=== PATIENT | female | born 1950 | race Caucasian/White ===

== ENCOUNTER 2017-01-29 14:37 | Inpatient (IN) | payer BC ==
--- NOTE | 2017-01-29 14:52 | CPEKG ---
Heart Rate: 57 RR Interval: 1053 P-R Interval: 180 QRSD Interval: 80 QT Interval: 416 QTC Interval: 405 P [place]: 43 QRS [place]: 43 T Wave [place]: 55 EKG Severity - NORMAL ECG - EKG Impression: SINUS RHYTHM Electronically Signed By: Faraz Chavez 29-Jan-2017 15:20:43
[2017-01-29] MEDS ORDERED: ASPIRIN 81 MG CHEWABLE TAB PO ONE (14:59)
[2017-01-29] MEDS ORDERED: NS 500 ML IV ONE (14:59)
--- NOTE | 2017-01-29 15:03 | EDPHY ---
H & P Stated Complaint: [place]; CP radiating into neck/jaw; nausea x 1 hr Time Seen by Provider: 01/29/17 14:49 HPI/ROS: CHIEF COMPLAINT: Chest pain HISTORY OF PRESENT ILLNESS: the patient is a 66-year-old female with a history of coronary artery disease and unstable angina who comes to the emergency department complaining of shoulder pain that radiates to her jaw and down to her chest on the left side. She states that this is consistent with her history of unstable angina. She reports that her last cardiac catheterization was in 2010 and that she has 2 stents total. She recently moved here from [place] at her medical records are not available. She takes aspirin daily and took 2 doses of nitroglycerin today. She did feel nauseous but did not vomit. She has mild feeling of shortness of breath. No fevers. No cough. No diaphoresis. No headache. She recently recovered from renal cancer after robotic surgery in October of this year. She also has remote history of breast cancer. She is not on any blood thinners. REVIEW OF SYSTEMS: Constitutional: denies: chills, fever, recent illness, recent injury EENTM: denies: blurred vision, double vision, nose congestion Respiratory: denies: cough, shortness of breath Cardiac: See HPI denies: irregular heart rate, lightheadedness, palpitations Gastrointestinal/Abdominal: denies: abdominal pain, diarrhea, nausea, vomiting, blood streaked stools Genitourinary: denies: dysuria, frequency, hematuria, pain Musculoskeletal: denies: joint pain, muscle pain Skin: denies: lesions, rash, jaundice, bruising Neurological: denies: headache, numbness, paresthesia, tingling, dizziness, weakness Hematologic/Lymphatic: denies: blood clots, easy bleeding, easy bruising Immunologic/allergic: denies: HIV/AIDS, transplant EXAM: GENERAL: Well-appearing, well-nourished and in no acute distress. HEAD: Atraumatic, normocephalic. EYES: Pupils equal round and reactive to light, extraocular movements intact, sclera anicteric, conjunctiva are normal. ENT: TMs normal, nares patent, oropharynx clear without exudates. Moist mucous membranes. NECK: Normal range of motion, supple without lymphadenopathy or JVD. LUNGS: Breath sounds clear to auscultation bilaterally and equal. No wheezes rales or rhonchi. HEART: Regular rate and rhythm without murmurs, rubs or gallops. ABDOMEN: Soft, nontender, normoactive bowel sounds. No guarding, no rebound. No masses appreciated. BACK: No CVA tenderness, no spinal tenderness, step-offs or deformities EXTREMITIES: Normal range of motion, no pitting or edema. No clubbing or cyanosis. NEUROLOGICAL: Cranial nerves II through XII grossly intact. Normal speech, normal gait. 5/5 strength, normal movement in all extremities, normal sensation PSYCH: Normal mood, normal affect. SKIN: Warm, dry, normal turgor, no visible rashes or lesions. Source: Patient Exam Limitations: No limitations - Personal History Current Tetanus Diphtheria and Acellular Pertussis (TDAP): Yes - Medical/Surgical History Hx Chronic Respiratory Disease: No Hx Diabetes: No Hx Cardiac Disease: Yes Hx Renal Disease: No Hx Cirrhosis: No Hx Alcoholism: No Other PMH: kidney cancer. heart stents. breast cancer, thyroidectomy - Family History Significant Family History: No pertinent family hx - Social History Smoking Status: Never smoked Alcohol Use: Sober Drug Use: None Constitutional: Initial Vital Signs Heart Rate 56 L 01/29/17 14:39 Respiratory Rate 18 01/29/17 14:39 Blood Pressure 151/105 H 01/29/17 14:39 O2 Sat (%) 94 01/29/17 14:39 O2 Delivery Mode Room Air Allergies/Adverse Reactions: No Known Allergies Allergy (Unverified 01/29/17 14:48) Home Medications: Medication Instructions Recorded Atorvastatin Calcium [Lipitor 20 20 mg PO DAILY 01/29/17 mg (*)] Docusate Sodium [Colace 100 MG (*)] 100 mg PO BID PRN 01/29/17 Losartan Potassium 100 mg PO DAILY 01/29/17 Nebivolol HCl [Bystolic 5 mg (*)] 5 mg PO DAILY 01/29/17 Thyroid,Pork [[place] Thyroid] 90 mg PO DAILY 01/29/17 Tizanidine HCl 4 mg PO QID 01/29/17 Zolpidem Tartrate [Ambien 10 mg] 10 mg PO HS PRN 01/29/17 clonazePAM [klonoPIN (*)] 1 mg PO TID PRN 01/29/17 oxyCODONE HCL/ACETAMINOPHEN 1 each PO Q6H PRN 01/29/17 [Percocet 10-325 mg Tablet] Medical Decision Making - Diagnostics EKG Interpretation: An EKG obtained and was read and documented in trace view. Please see trace view for full reading and report. Sinus rhythm, no acute ischemic changes Imaging Results: Imaging Impressions Chest X-Ray 01/29/17 15:00 Impression: Hyperexpanded lungs with peribronchial thickening, suggesting COPD. Imaging: Discussed imaging studies w/ cardiographer Radiologist ED Course/Re-evaluation: We discussed the test results thus far which are reassuring. The patient continues to be symptomatic. I will admit for continued workup and testing evaluation. Patient understands and agrees with this plan. 3:50 p.m. I spoke with Dr MAKENNA Andres who will admit. The 4:10 p.m. I discussed the case with Dr. Pepito Cason who will consult. Differential Diagnosis: Partial list of the Differential diagnosis considered include but were not limited to; acute coronary disease, anxiety and although unlikely based on the history and physical exam, I also considered PE, dissection, pneumothorax. - Data Points Laboratory Results: Laboratory Results 01/29/17 15:09 01/29/17 15:09 01/29/17 01/29/17 01/29/17 15:09 15:09 15:09 WBC 7.31 10^3/uL 10^3/uL (3.80-9.50) RBC 4.06 10^6/uL L 10^6/uL (4.18-5.33) Hgb 12.6 g/dL g/dL (12.6-16.3) Hct 38.0 % % (38.0-47.0) MCV 93.6 fL fL (81.5-99.8) MCH 31.0 pg pg (27.9-34.1) MCHC 33.2 g/dL g/dL (32.4-36.7) RDW 14.2 % % (11.5-15.2) Plt Count 264 10^3/uL 10^3/uL (150-400) MPV 9.8 fL fL (8.7-11.7) Neut % (Auto) 54.6 % % (39.3-74.2) Lymph % (Auto) 33.0 % % (15.0-45.0) [place] % (Auto) 9.6 % % (4.5-13.0) Eos % (Auto) 1.9 % % (0.6-7.6) Baso % (Auto) 0.5 % % (0.3-1.7) Nucleat RBC Rel Count 0.0 % % (0.0-0.2) Absolute Neuts (auto) 3.99 10^3/uL 10^3/uL (1.70-6.50) Absolute Lymphs (auto) 2.41 10^3/uL 10^3/uL (1.00-3.00) Absolute Monos (auto) 0.70 10^3/uL 10^3/uL (0.30-0.80) Absolute Eos (auto) 0.14 10^3/uL 10^3/uL (0.03-0.40) Absolute Basos (auto) 0.04 10^3/uL 10^3/uL (0.02-0.10) Absolute Nucleated RBC 0.00 10^3/uL 10^3/uL (0-0.01) Immature Gran % 0.4 % % (0.0-1.1) Immature Gran # 0.03 10^3/uL 10^3/uL (0.00-0.10) PT 12.3 SEC SEC (12.0-15.0) INR 0.92 (0.83-1.16) APTT 22.7 SEC L SEC (23.0-38.0) Sodium 138 mEq/L mEq/L (134-144) Potassium 4.4 mEq/L mEq/L (3.5-5.2) Chloride 103 mEq/L mEq/L (97-110) Carbon Dioxide 24 mEq/l mEq/l (22-31) Anion Gap 11 mEq/L mEq/L (8-16) BUN 21 mg/dL mg/dL (7-23) Creatinine 1.0 mg/dL mg/dL (0.6-1.0) Estimated GFR 56 Glucose 95 mg/dL mg/dL (70-100) Calcium 9.5 mg/dL mg/dL (8.5-10.4) Total Bilirubin 0.7 mg/dL mg/dL (0.1-1.4) Conjugated Bilirubin 0.4 mg/dL mg/dL (0.0-0.5) Unconjugated Bilirubin 0.3 mg/dL mg/dL (0.0-1.1) AST 39 IU/L IU/L (14-46) ALT 37 IU/L IU/L (9-52) Alkaline Phosphatase 69 IU/L IU/L (38-126) Troponin I < 0.012 ng/mL ng/mL (0-0.034) Total Protein 7.6 g/dL g/dL (6.3-8.2) Albumin 4.5 g/dL g/dL (3.5-5.0) Lipase 97.0 IU/L IU/L (23-300) Medications Given: Discontinued Medications Aspirin (Aspirin) 324 mg PO EDNOW ONE Stop: 01/29/17 15:00 Last Admin: 01/29/17 15:24 Dose: 243 mg Enoxaparin Sodium (Lovenox) 70 mg SC ONCE ONE Stop: 01/29/17 17:46 Last Admin: 01/29/17 17:37 Dose: 70 mg Hydromorphone HCl (Dilaudid) 1 mg IVP EDNOW ONE Stop: 01/29/17 15:46 Last Admin: 01/29/17 15:50 Dose: 1 mg Sodium Chloride (Ns) 500 mls @ 1,000 mls/hr IV ONCE ONE PRN Reason: Protocol Stop: 01/29/17 15:28 Last Admin: 01/29/17 15:23 Dose: 500 mls Sodium Chloride (Ns) 1,000 mls @ 3,000 mls/hr IV ONCE ONE Stop: 01/29/17 16:16 Last Admin: 01/29/17 16:46 Dose: Not Given Morphine Sulfate (Morphine) 4 mg IVP EDNOW ONE Stop: 01/29/17 15:00 Last Admin: 01/29/17 15:24 Dose: 4 mg Nitroglycerin (Nitro-Bid 2%) 1 inch TP ONCE ONE Stop: 01/29/17 16:27 Last Admin: 01/29/17 17:36 Dose: 1 inch Departure - Departure Disposition: [facility] Inpatient Acute Clinical Impression: Chest pain Qualifiers: Chest pain type: unspecified Qualified Code(s): R07.9 - Chest pain, unspecified Condition: Fair
[2017-01-29 15:11] LABS: % IMMATURE GRANULYOCYTES 0.4 % (0.0-1.1); ABSOLUTE IMMATURE GRANULOCYTES 0.03 10^3/uL (0.00-0.10); ADD DIFF? NO; ATYPICAL LYMPHOCYTE FLAG 30 (0-99); HEMOGLOBIN 12.6 g/dL (12.6-16.3); LEFT SHIFT FLG 10 (0-99); MEAN CELL HEMOGLOBIN CONCENTR. 33.2 g/dL (32.4-36.7); MEAN CELL VOLUME 93.6 fL (81.5-99.8); MEAN PLATELET VOLUME 9.8 fL (8.7-11.7); PLATELET COUNT 264 10^3/uL (150-400); RED BLOOD CELL COUNT 4.06 10^6/uL (4.18-5.33); RED CELL DISTRIBUTION WIDTH 14.2 % (11.5-15.2)
[2017-01-29 15:12] LABS: ADD MORPH? NO; ADD SCAN? NO; FRAGMENT RBC FLAG 0 (0-99); LIPEMIA HEMOLYSIS FLAG 80 (0-99); PLATELET CLUMPS FLAG 0 (0-99)
[2017-01-29 15:23] LABS: APTT 22.7 SEC (23.0-38.0); INR 0.92 (0.83-1.16); PROTIME(PATIENT) 12.3 SEC (12.0-15.0)
[2017-01-29 15:28] LABS: ALANINE AMINOTRANSFERASE 37 IU/L (9-52); ALBUMIN 4.5 g/dL (3.5-5.0); ALKALINE PHOSPHATASE 69 IU/L (38-126); ANION GAP 11 mEq/L (8-16); ASPARTATE AMINOTRANSFERASE 39 IU/L (14-46); BILIRUBIN,TOTAL 0.7 mg/dL (0.1-1.4); BILIRUBIN-CONJUGATED 0.4 mg/dL (0.0-0.5); BILIRUBIN-UNCONJUGATED 0.3 mg/dL (0.0-1.1); CALCIUM 9.5 mg/dL (8.5-10.4); CARBON DIOXIDE 24 mEq/l (22-31); CHLORIDE 103 mEq/L (97-110); GLOMERULAR FILTRATION RATE 56; GLUCOSE 95 mg/dL (70-100); POTASSIUM 4.4 mEq/L (3.5-5.2); SODIUM 138 mEq/L (134-144); TOTAL PROTEIN 7.6 g/dL (6.3-8.2)
[2017-01-29 15:39] LABS: TROPONIN I < 0.012 ng/mL (0-0.034)
[2017-01-29] MEDS ORDERED: HYDROmorphONE/DILAUDID 1 MG/ML SYR IVP ONE (15:45)
[2017-01-29] MEDS ORDERED: HYDROmorphONE/DILAUDID 1 MG/ML SYR ONE (15:46)
[2017-01-29] MEDS ORDERED: ONDANSETRON DISINTEGRATING 4 MG TAB PO PRN (15:57)
[2017-01-29] MEDS ORDERED: ONDANSETRON 4 MG/2 ML VIAL IVP PRN (15:57)
[2017-01-29] MEDS ORDERED: NS 1,000 ML IV ONE (15:57)
[2017-01-29] MEDS: NITROGLYCERIN 2% 1 GM PACKET TP ONE ×2 (16:46→17:36)
--- NOTE | 2017-01-29 16:58 | GHP ---
[f rep st] HISTORY AND PHYSICAL DATE OF ADMISSION: 01/29/2017 CHIEF COMPLAINT: Chest pain. HISTORY OF PRESENT ILLNESS: This is a 66-year-old female with a history of coronary artery disease status post 2 stents, most recent of which was placed in 2010, who arrived here from [place] approxima tel a week ago and developed substernal jaw and left-sided shoulder and arm pain this morning while sitting with her grandchildren. Patient reports that the day previous, she was feeling very fatigu ed and lethargic. Denied any specific chest pain but did have some exertional shortness of breath s paola she has arrived from [place]. Patient notes sitting with her grandchildren this morning with the beginning of this pain in her jaw radiating down to her left chest and then across to her left shou lder and down her arm. It is quite similar to the pain she had with her previous AK and therefore p resented to the emergency department for evaluation. She reports that it was an intensity of 7 on a 1-10 scale when it began, after treatment in the ED it is down to a 4 but is persistent still. She experienced some nausea, some lightheadedness with this. She did not vomit. Again, has been exper iencing dyspnea on exertion since her arrival from [place]. The patient denies any headaches, denies any vision changes. She does have hearing loss which has been stable. Denies any dysphagia. Has b een running a little bit constipated. Denies any dysuria, hematuria, or lower extremity edema. PAST MEDICAL HISTORY: 1. Coronary artery disease status post stenting x2, last of which in 2010. 2. Hypothyroidism. 3. Breast cancer status post a modified radical mastectomy. 4. Recent diagnosis of a kidney cancer status post surgical resection in October of 2016 without adju vant chemotherapy. 5. Severe degenerative joint disease of the back, waiting for a nerve stimulator from Neurosurgery. 6. Hypertension. 7. Hyperlipidemia. 8. Failed silicone implant requiring a TRAM flap. 9. Chronic pain. SOCIAL HISTORY: Negative for tobacco, alcohol maybe once to twice a month, no illicit drugs. She d id try a marijuana gummy recently but did not like the way it felt. FAMILY HISTORY: Positive for heart disease in her mother. REVIEW OF SYSTEMS: A 10-point review of systems is negative with the exception of that reported in the HPI. PHYSICAL EXAMINATION: VITAL SIGNS: Blood pressure 156/107, heart rate 60, respiratory rate 16, 94% on room air, 36.8. GENERAL: This is a middle-aged female in no acute distress. ENT: Notable for moist mucous membranes. EYES: Negative for any icterus. CARDIAC: Patient is bradycardic, regula r. No murmurs are appreciated. PULMONARY: Good respiratory effort. Clear to auscultation bilater ally. GASTROINTESTINAL: Positive bowel sounds. Abdomen is soft and nontender in all 4 quadrants. MUSCULOSKELETAL: Negative for any lower extremity edema. SKIN: Negative for any rashes. NEUROLO GIC: She is alert and oriented x3. PSYCHIATRIC: She is pleasant and cooperative on interview and examination. LABORATORY DATA: White count 7.3, creatinine 1.0. Liver function tests normal. Troponin less than 0.012. Chest x-ray, which I personally reviewed and interpreted, shows no acute infiltrates or edema. EKG, which I personally reviewed and interpreted, shows sinus rhythm, bradycardia, heart rates in th e 50s, normal axis, normal intervals, and isolated T-wave inversion in V1 with a biphasic P in V1, o therwise no acute ST-T changes. ASSESSMENT AND PLAN: This is a 66-year-old female with known coronary artery disease, presenting wi th chest pain. 1. Unstable angina. Patient is presenting with chest pain at rest not completely treated in the em ergency department. Need to make Cardiology aware of this patient and discuss the potential of both anticoagulation and/or a nitroglycerin drip. Will cycle her troponins. Expect that she will likel y need cardiac catheterization in the morning. Will make her n.p.o. after midnight. 2. Hypertension. Again, if we initiate a nitrate of some sort, I expect her blood pressures will c ome down. Will continue her home medications in addition. 3. Hyperlipidemia. Will continue her home medications. 4. Degenerative joint disease. I suspect the patient is on chronic narcotics after med reconciliat ion. We can certainly continue her home medications. 5. Kidney cancer. Patient believes it is renal cell carcinoma and that she was entirely treated yen rgically. Will need to obtain records from outside hospital. 6. Diet. Cardiac for now, n.p.o. after midnight. 7. Prophylaxis. Will wait as she may need a heparin drip. DISPOSITION: Potentially less than 2 midnights if the patient rules out overnight and has negative cardiac evaluation in the morning. I have discussed the case with the emergency room physician. We will consult Cardiology from the ED as the patient is presenting with unstable angina. /[id number]/MODL
[2017-01-29] MEDS ORDERED: ENOXAPARIN 60 MG/0.6 ML SYR SC ONE (17:25)
[2017-01-29] MEDS ORDERED: hydrALAZINE 20 MG/ML VIAL IVP PRN (17:26)
[2017-01-29] MEDS ORDERED: HYDROmorphONE/DILAUDID 1 MG/ML SYR IVP PRN (17:31)
[2017-01-29] MEDS ORDERED: ENOXAPARIN 80 MG/0.8 ML SYR SC ONE (17:45)
[2017-01-29] MEDS ORDERED: NON-FORMULARY NEW DRUG (Zolpidem Tartrate [Ambien 10 Mg] 10 MG) PO PRN (18:31)
[2017-01-29] MEDS: HYDROmorphONE/DILAUDID 1 MG/ML SYR IVP PRN (18:44)
--- NOTE | 2017-01-29 19:08 | GCON ---
[f rep st] CONSULTATION CARDIOLOGY CONSULTATION DATE OF CONSULTATION: 01/29/2017 INDICATIONS: Chest discomfort. REQUESTING PHYSICIAN: Dr. Lisbet Andres HISTORY OF PRESENT ILLNESS: The patient is 66 years old. She has known coronary disease. Apparent ly, in 2007 and 2010, she suffered a myocardial infarction. She states that she was treated with PC I and stenting. Both times, she had a single stent placed. She does recall that 1 of the stents wa s in the LAD. Additionally, she has a history of SVT, treated with adenosine in the past. She is o riginally from [place], she moved out here about a week ago, currently staying with her daughter. B eginning about 1 o'clock today, she developed the abrupt onset of left-sided shoulder and chest disc omfort with radiation into her neck and jaw. She had associated diaphoresis and mild shortness of b reath as well as fatigue. Her symptoms were very similar to her index complaints in 2007 and 2010. She took 2 sublingual nitroglycerin at home, and subsequently came to the emergency department. Sh babita states that she has had similar symptoms over the past 5 years. She thinks she has had 4 or 5 hos pitalizations since her stent in 2010. She recalls having had multiple stress myocardial perfusion imaging studies and has typically been told that these were normal. She has not required another ca rdiac catheterization since she was stented back in 2010. Here in the emergency department, her walter ctrocardiogram demonstrates normal sinus rhythm. She had no indication of significant ST or T mack es. Her initial troponin was negative. She was hemodynamically stable and hypertensive with blood pressure 151/105. She was given additional nitroglycerin and morphine with a dramatic improvement i n her pain. Currently, she states she is experiencing only very mild discomfort. PAST MEDICAL HISTORY: 1. Coronary artery disease as described above. 2. History of supraventricular tachycardia. She states about 3 years ago, she had a rapid heart ra te which was terminated with adenosine. This has not returned. 3. Chronic back pain following spinal fusion at levels lumbar 4 and 5. 4. History of deafness with previous cochlear implant on the right. 5. Hypertension. 6. Hyperlipidemia. 7. History of breast cancer in 1983, status post left modified radical mastectomy. 8. History of renal cell carcinoma. In October of this year, she had a left-sided partial nephrectom y. 9. History of nephrolithiasis, leading to sepsis. 10. Peripheral neuropathy. 11. History of hot nodules requiring thyroidectomy. 12. History of breast implants which subsequently ruptured, requiring a TRAM flap surgical repair. 13. History of migraine headaches. 14. Osteoarthritis. SURGICAL HISTORY: 1. She has had previous stenting as described above. 2. History of left-sided modified radical mastectomy. 3. History of left partial nephrectomy. 4. Left total knee arthroplasty. 5. Right femur fracture, status post surgical repair. HOME MEDICATIONS: These are detailed on the chart and not repeated here. FAMILY HISTORY: Noncontributory at this point. ALLERGIES: None. SOCIAL HISTORY: She does not smoke, she uses alcohol very rarely. She really does not exercise muc h as she is debilitated by her back pain. She moved here from [place]. She has a daughter who live s in [place], and one who lives here. She does not use drugs on a regular basis, although alondra starks tried marijuana edible. REVIEW OF SYSTEMS: A full 10-point review of systems was performed and is otherwise negative. DATA BASE: Her ECG demonstrates sinus bradycardia with no ST or T changes. Complete metabolic prof ile is normal. Troponin less than 0.012. INR is 0.92. CBC is unremarkable. PHYSICAL EXAMINATION: VITAL SIGNS: Her blood pressure is 156/107, heart rate 60, respiratory rate is 18. Room air saturations are 94%. GENERAL: She is a healthy white female in no acute distress. HEENT: No jugular venous distention, adenopathy or thyromegaly. RESPIRATORY: She is breathing e asily, using no accessory muscles. On auscultation, she has clear lung springer bilaterally. CARDIOV ASCULAR: Precordial inspection is unremarkable. She has no reproducible chest wall tenderness. On auscultation, she has a regular rate and rhythm without murmurs, gallops, rubs. ABDOMEN: Soft. S he has mild diffuse abdominal tenderness with no masses. EXTREMITIES: Warm and well perfused with no edema. VASCULATURE: She has 2+ radial, dorsal pedal, and posterior tibial pulses. IMPRESSION: The patient is 66 years old. She has known coronary disease as described above. She p resents now with a concerning chest pain syndrome which is consistent with unstable angina pectoris. She has no indication of an acute infectious process at the present time. Additionally, there was no indication of aortic dissection or pulmonary embolism. Certainly, a GI etiology to her chest pa in has not been excluded and may be a real possibility in light of her multiple previous hospitaliza tions with chest and neck discomfort without objective findings of ischemia on previous noninvasive testing. Presently, she is hemodynamically stable, normal EKG with negative cardiac enzymes. RECOMMENDATIONS: 1. She will be admitted to telemetry. 2. Her home medications will be restarted. 3. Nitroglycerin paste has been placed. 4. We will give her a single dose of IV Lovenox. 5. I will plan to trend her cardiac enzymes. 6. She will be made n.p.o. after midnight. 7. Depending on her clinical course, we may consider invasive or noninvasive risk stratification. /[id number]/MODL
[2017-01-29] MEDS: ZOLPIDEM TARTRATE 5 MG TAB PO PRN (22:30)
[2017-01-30] MEDS: HYDROmorphONE/DILAUDID 1 MG/ML SYR IVP PRN ×4 (00:36→23:20)
[2017-01-30] MEDS: ACETAMINOPHEN 325 MG TAB PO PRN ×2 (03:37→15:24)
[2017-01-30 04:45] LABS: ANION GAP 10 mEq/L (8-16); CARBON DIOXIDE 23 mEq/l (22-31); CHLORIDE 107 mEq/L (97-110); CREATININE 0.9 mg/dL (0.6-1.0); GLOMERULAR FILTRATION RATE > 60; GLUCOSE 84 mg/dL (70-100); POTASSIUM 4.2 mEq/L (3.5-5.2); SODIUM 140 mEq/L (134-144)
[2017-01-30 06:19] LABS: TROPONIN I < 0.012 ng/mL (0-0.034)
[2017-01-30] MEDS: THYROID 60 MG TAB PO SCH (08:25)
[2017-01-30] MEDS: NEBIVOLOL HCL 5 MG TAB PO SCH (08:26)
[2017-01-30] MEDS: ATORVASTATIN CALCIUM 20 MG TAB PO SCH (08:27)
[2017-01-30] MEDS: LOSARTAN POTASSIUM 50 MG TAB PO SCH (08:27)
--- NOTE | 2017-01-30 08:55 | CPEKG ---
Heart Rate: 52 RR Interval: 1154 P-R Interval: 188 QRSD Interval: 76 QT Interval: 444 QTC Interval: 413 P [place]: 43 QRS [place]: 29 T Wave [place]: 52 EKG Severity - BORDERLINE ECG - EKG Impression: SINUS RHYTHM EKG Impression: BORDERLINE R WAVE PROGRESSION, ANTERIOR LEADS Electronically Signed By: Richard Scott 01-Feb-2017 08:10:19
[2017-01-30] MEDS ORDERED: NON-FORMULARY NEW DRUG (Thyroid,Pork [Armour Thyroid] 90 MG) PO SCH (09:00)
[2017-01-30] MEDS ORDERED: NON-FORMULARY NEW DRUG (Losartan Potassium [Losartan Potassium] 100 MG) PO SCH (09:00)
[2017-01-30] MEDS ORDERED: REGADENOSON 0.4 MG/5 ML SYR IVP ONE (09:05)
--- NOTE | 2017-01-30 10:35 | PDCARPN ---
Cardiology Progress Note Chief Complaint: cp Assessment/Plan: Assessment: 66-y/o F with PMH CAD with DC/PCI in (per pt report one stent was to LAD), SVT previously requiring adenosine, deafness/cochlear implant, htn, dyslipidemia, RCC, breast CA, presented 01/29 with L-shoulder and chest discomfort that radiated to neck and jaw with associated diaphoresis and shortness similar to previous DC. Since last PCI 2010, she recalls at least 4-5 hospitalizations for similar symptoms. She has moved here from [place] 1 week ago and plan is to permanently reside in [place]. #. cp: neg ECG/enz await MPI results telemetry unremarkable #. htn: on Losartan and Bystolic as outpatient and appears well-controlled #. dyslipidemia: on Atorvastatin #. SVT: no arrhythmias seen on telemetry Plan: Await nuclear imaging study. 01/30/17 10:24 Subjective: Reports an episode of neck pain last night. Given analgesia. Reviewed/Discussed With: hospitalist Objective: Vital Signs (8 Hrs) Temp Pulse Resp BP Pulse Ox 01/30/17 08:27 130/87 H 01/30/17 07: 98.1 F 63 10 L 107/69 94 01/30/17 03:52 97.5 F 59 L 16 130/80 H 96 Intake/Output (24 Hrs) 01/29/17 01/30/17 01/31/17 05:59 05:59 05:59 Intake Total 300 Balance 300 Intake: Oral (ml) 300 Other: Weight 76.657 kg Intake Quantity npo Sufficient Number of Voids Toilet 1 Result Diagrams: 01/29/17 15:09 01/30/17 03:33 Cardiac Labs: Cardiac Lab Results (72 Hrs) 01/30/17 01/29/17 01/29/17 03:33 21:03 18:31 Troponin I < 0.012 < 0.012 0.023 EKG: SR Telemetry: SR - Physical Exam Constitutional: no apparent distress Eyes: PERRL, anicteric sclera Cardiovascular: regular rate and rhythm Respiratory: clear to auscultate bilat Skin: no rashes, no abrasions Neurologic: AAOx3 Psychiatric: cooperative, interactive, anxious ICD10 Worksheet Patient Problems: Problems Problem Status Onset Chest pain Acute
--- NOTE | 2017-01-30 10:42 | PDCARST ---
CAR Stress Test Results Type of Stress Test: Lexiscan Indication: shortness of breath/dizziness Description of Procedure: After informed consent was obtained, pt was established to ECG, blood pressure, HR and oximetry monitoring. STRESS EKG AND HEMODYNAMIC DATA. Resting heart rate: 53 BPM. Resting ECG: SR. Resting blood pressure: 120/80 mmHg. O2 saturation at rest: 97. Peak heart rate: BPM. Peak blood pressure: 140/90 mmHg. Arrhythmias: none. Symptoms: The patient experienced no typical symptoms of angina during stress or recovery. Stress/Infusion ECG: No change in rhythm with no significant ST/T wave changes. Stress/infusion O2 saturation: 97 Impression: Uneventful Lexiscan infusion. Conclusion: Await nuclear images.
[2017-01-30] MEDS: DOCUSATE SODIUM 100 MG CAP PO PRN (11:26)
[2017-01-30] MEDS: clonazePAM 1 MG TAB PO PRN ×2 (11:26→18:39)
--- NOTE | 2017-01-30 12:25 | ECHO ---
[id number] + + [address] : : [place] [address] : : [phone] + + Adult Echocardiographic Report + -----+ :Name: ALENA CLARKE HStudy Date: 01/30/2017 10:55 AM : : Hospital Admission Number: [id number] Location : 218: :: 1950 Gender: Female Height: 62 in : :Age: 66 yrs Race: WH Weight: 165 lb : :Reason For Study: Eval LV Fx : : BSA: 1.8 meters2 : :History: CAD, Chest Pain : + -----+ MMode/2D Measurements \T\ Calculations IVSd: 0.92 cm LVIDd: 4.3 cm FS: 35.8 % Ao root diam: 3.1 cm LVPWd: 0.95 cm LVIDs: 2.7 cm EDV(Teich): 81.2 ml ACS: 1.8 cm ESV(Teich): 27.9 ml EF(Teich): 65.7 % Normal Measurement Values: + + :LVIDd (3.5-5.7cm) IVSd (0.6-1.1cm) LVPWd (0.6-1.1cm) Aortic Root (2.0-3.7cm)Left Atrium (1.5-4.0cm): :LV Vol(d) (76-115ml) LV Vol(s) (29-48ml) Ejec Fraction (50-65%)PV Bhupinder (0.6- 1.2m/s) TV Bhupinder (0.4-1.0m/s) : :MV E Bhupinder (0.8-1.0m/s)MV A Bhupinder (0.3-1.0m/s)LVOT Bhupinder (0.7-1.2m/s) Asc Ao Bhupinder ( 0.9-1.8m/s) : + + Doppler Measurements \T\ Calculations MV E max bhupinder: Ao V2 max: LV V1 max: PA V2 max: 79.0 cm/sec 124.9 cm/sec 68.1 cm/sec 100.4 cm/sec MV A max bhupinder: Ao max P.2 mmHgLV V1 max PG: PA max P.0 mmHg 92.8 cm/sec 1.9 mmHg MV E/A: 0.85 Left Ventricle The left ventricle is normal in size. There is normal left ventricular wall thickness. The left ventricular ejection fraction is normal. There is Doppler evidence for diastolic dysfunction. Ejection Fraction = 65%. The left ventricular wall motion is normal. Right Ventricle The right ventricle is normal in size and function. Atria The left atrial size is normal. Right atrial size is normal. Mitral Valve The mitral valve is normal in structure and function. There is no evidence of mitral valve prolapse. There is no mitral valve stenosis. There is no mitral regurgitation noted. Tricuspid Valve Normal tricuspid valve. No tricuspid regurgitation. Aortic Valve The aortic valve is normal in structure and function. There is no aortic stenosis. There is no aortic insufficiency. Pulmonic Valve The pulmonic valve is normal in structure and function. There is no pulmonic valvular stenosis. There is no pulmonic valvular regurgitation. Great Vessels The aortic root is normal size. Pericardium/Pleural trivial pericardial effusion. There are no echocardiographic indications of cardiac tamponade. Conclusion A complete two-dimensional transthoracic echocardiogram was performed (2D, M-mode, Doppler and color flow Doppler). The left ventricular ejection fraction is normal. There is Doppler evidence for diastolic dysfunction. Ejection Fraction = 65%. The left ventricular wall motion is normal. The right ventricle is normal in size and function. The mitral valve is normal in structure and function. The aortic valve is normal in structure and function. The aortic root is normal size. trivial pericardial effusion. Final Reading Physician: Donnell Flood electronically signed on 01/30/2017 12:23 PM Ordering Physician: Pepito Cason Performed By: Jose Leger, FRANSISCACS
--- NOTE | 2017-01-30 18:13 | HOSPPROG ---
Hospitalist Progress Note Assessment/Plan: #hx CAD, s/p stents prev, EF 65%/+diastolic dysfunction on echo -trops OK, lexiscan in process -cardiology consult as may need cath with multiple risk factors, discussed care plan with cardiology #HTN -monitor closely, also has an anxiety component #hyperlipidemia -po meds #DJD/chronic paresthesia and pain -will discuss informally with neurosurg and give her orders to do imaging needed as outpt prior to appt with Dr Sandoval. -discussed PCP options available and several referral names given, asked CM to assist also #hx renal cancer, recent treatment. hx breast CA -needs [facility] appt to establish care, no active issues/concerns to warrant inpt eval at this time #hypothyroid -po med #DVT prophy-on hold for now as may need cath FULL CODE, no PCP yet DISPO- 1-2 more mdnts, depending upon cardiac eval Subjective: Feels OK, no SOB, occ L arm pain (? from chronic neck issues-but is getting cardiac eval as hx stents). New to area, moved here recently to be closer to family. Trying to find a PCP, needs to establish with [facility] (recent dx /treatment for kidney cancer, hx br ca). Chronic B LE paresthesia, back pain, neck pain. Scheduled to see Dr Sandoval this month for eval- worried bc needs imaging ( can't have MRI bc of cochlear implants). Says neg bone scan recently, s/p renal cancer treatments. Objective: Vital Signs Temp Pulse Resp BP Pulse Ox 97.8 F 69 12 129/92 H 93 01/30/17 16:00 01/30/17 16:00 01/30/17 16:00 01/30/17 16:00 01/30/17 16:00 Laboratory Results 01/30/17 03:33 01/29/17 01/30/17 01/31/17 11:59 11:59 11:59 Intake Total 300 Balance 300 PT 12.3 SEC (12.0-15.0) 01/29/17 15:09 INR 0.92 (0.83-1.16) 01/29/17 15:09 - Time Spent With Patient Time Spent with Patient: greater than 35 minutes Time Spent with Patient: Greater than 35 minutes spent on this patients care, greater than 50% of time spent counseling, educating, and coordinating care regarding the above mentioned plan. - Pending Discharge Pending Discharge Within 48 Hours: Yes Pending Discharge Date: 02/03/17 Pending Discharge Time: 11:00 - Physical Exam Constitutional: no apparent distress, appears nourished Ears, Nose, Mouth, Throat: moist mucous membranes, hearing normal, ears appear normal, no oral mucosal ulcers Cardiovascular: regular rate and rhythym, no murmur, rub, or gallop, No edema Respiratory: no respiratory distress, no rales or rhonchi, clear to auscultation Gastrointestinal: normoactive bowel sounds, soft, non-tender abdomen, no palpable masses Skin: no rashes or abrasions, no fluctuance, no induration Musculoskeletal: other (GERBER) Neurologic: AAOx3 Psychiatric: interacting appropriately, not anxious, not encephalopathic, thought process linear ICD10 Worksheet Patient Problems: Problems Problem Status Onset Chest pain Acute
[2017-01-30] MEDS: ZOLPIDEM TARTRATE 5 MG TAB PO PRN (21:36)
[2017-01-31] MEDS: HYDROmorphONE/DILAUDID 1 MG/ML SYR IVP PRN ×4 (06:00→22:23)
[2017-01-31] MEDS: ATORVASTATIN CALCIUM 20 MG TAB PO SCH (08:15)
[2017-01-31] MEDS: LOSARTAN POTASSIUM 50 MG TAB PO SCH (08:16)
[2017-01-31] MEDS: NEBIVOLOL HCL 5 MG TAB PO SCH (08:16)
[2017-01-31] MEDS: DOCUSATE SODIUM 100 MG CAP PO PRN (09:40)
[2017-01-31] MEDS: THYROID 60 MG TAB PO SCH (09:40)
[2017-01-31] MEDS: ACETAMINOPHEN 325 MG TAB PO PRN ×2 (09:52→18:25)
[2017-01-31] MEDS ORDERED: MAGNESIUM HYDROXIDE 30 ML UDCUP PO PRN (10:57)
[2017-01-31] MEDS ORDERED: LACTULOSE 20 GM/30 ML UDCUP PO PRN (10:57)
[2017-01-31] MEDS ORDERED: BISACODYL 10 MG SUPP PR PRN (10:57)
[2017-01-31] MEDS: POLYETHYLENE GLYCOL 3350 17 GM PKT PO SCH (11:08)
--- NOTE | 2017-01-31 12:24 | SOAPPROG ---
[facility] Progress Note Assessment/Plan: Assessment: Ms. Mixon is a 66-year-old female who has known CAD with previous PCI on 2 separate occasions most recently in 2010. She presents now with intermittent resting chest and jaw as well as left arm discomfort. Her symptoms have continued during this hospitalization without objective findings of ischemia or infarction. Her stress myocardial perfusion imaging study was abnormal with defect likely representing attenuation artifact as well as insertion of the right ventricle. She has, however, continued to have symptoms. As such, I do not feel comfortable discharging her without a definitive assessment of her coronary anatomy. Plan: 1. Will plan to start her on proton pump inhibitor therapy today. 2. Will arrange for cardiac catheterization to be performed tomorrow. 3. Further recommendations will be made pending the outcome of that study. 01/31/17 12:22 Subjective: She is known to me from her initial hospitalization. Unfortunately, she continues to have intermittent left-sided jaw and chest discomfort. Occasionally this radiates into her left arm. Symptoms are similar to the pain that she had at the time of her previous PCI and stenting. Today, she completed the resting portion of her stress test. I personally reviewed that study. There are fixed defects noted along the anterior septum toward the apex. Additionally, there is a fixed inferolateral defect with very minimal if any reversible ischemia. Objective: Vital Signs Temp Pulse Resp BP Pulse Ox 36.4 C 54 L 19 137/87 H 87 L 01/31/17 11:57 01/31/17 11:57 01/31/17 11:57 01/31/17 11:57 01/31/17 11:57 Laboratory Results 01/30/17 03:33 01/30/17 01/31/17 02/01/17 05:59 05:59 05:59 Intake Total 300 300 Balance 300 300 PT 12.3 SEC (12.0-15.0) 01/29/17 15:09 INR 0.92 (0.83-1.16) 01/29/17 15:09 Physical Exam - Physical Exam General Appearance: WD/WN, no apparent distress Neck: non-tender Respiratory: lungs clear Cardiac/Chest: regular rate, rhythm, No edema, No gallop, No JVD Peripheral Pulses: 2+: carotid (R), carotid (L) Abdomen: non-tender Pelvic Exam: deferred Rectal: deferred ICD10 Worksheet Patient Problems: Problems Problem Status Onset Chest pain Acute
[2017-01-31] MEDS ORDERED: TEMAZEPAM 15 MG CAP PO PRN (12:28)
[2017-01-31] MEDS: clonazePAM 1 MG TAB PO PRN (12:30)
[2017-01-31] MEDS: PANTOPRAZOLE SODIUM 40 MG TAB PO SCH (12:32)
[2017-01-31 12:38] LABS: COLOR YELLOW; LEUKOCYTE ESTERASE,URINE TRACE (NEGATIVE); NITRITE,URINE NEGATIVE (NEGATIVE)
[2017-01-31 12:41] LABS: MUCUS TRACE /lpf (NONE-1+); RBC,URINE 50-182 /hpf (0-3)
--- NOTE | 2017-01-31 20:29 | HOSPPROG ---
Hospitalist Progress Note Assessment/Plan: #hx CAD, s/p stents prev, EF 65%/+diastolic dysfunction on echo -trops OK, lexiscan OK but ongoing pain -cardiology plans for cath in AM -discussed care plan with Dr Cason #HTN -monitor closely, also has an anxiety component #hyperlipidemia -po meds -recheck lipids in AM #DJD/chronic paresthesia and pain -per informal discussion with neurosurg, orders given to her for CT myelograms of lumbar/cervical areas, flex/ext xrays of lumbar/cervical areas. Should schedule as o/p prior to appt with Dr Patten -discussed PCP options available yesterday and several referral names given, asked CM to assist also #hx renal cancer, recent treatment. hx breast CA -needs [facility] appt to establish care, no active issues/concerns to warrant inpt eval at this time #dysuria -UA ordered, reflex culture -small ulcer vs irritation L labia, no hx hsv, PCR sent for completeness -constipated, bowel protocol started #hypothyroid -po med #DVT prophy-on hold for now as needs cath, TEDs FULL CODE, no PCP yet DISPO- 1-2 more mdnts, depending upon cardiac eval/cath Subjective: Pain with urination, feels a 'pimple' on labia that is sore. No n/v/ d, + constipation. Pain OK with meds. No SOB. Ongoing L arm pain (which she attributes to neck issues also). Objective: Vital Signs Temp Pulse Resp BP Pulse Ox 97.9 F 57 L 18 134/93 H 94 01/31/17 20:00 01/31/17 20:00 01/31/17 20:00 01/31/17 20:00 01/31/17 20:00 PT 12.3 SEC (12.0-15.0) 01/29/17 15:09 INR 0.92 (0.83-1.16) 01/29/17 15:09 - Time Spent With Patient Time Spent with Patient: greater than 35 minutes Time Spent with Patient: Greater than 35 minutes spent on this patients care, greater than 50% of time spent counseling, educating, and coordinating care regarding the above mentioned plan. - Pending Discharge Pending Discharge Within 48 Hours: Yes Pending Discharge Date: 02/03/17 Pending Discharge Time: 11:00 - Physical Exam Constitutional: no apparent distress, appears nourished Eyes: PERRL, anicteric sclera, EOMI Ears, Nose, Mouth, Throat: moist mucous membranes, hearing normal Cardiovascular: regular rate and rhythym, no murmur, rub, or gallop, No JVD, No edema Respiratory: no respiratory distress, no rales or rhonchi, clear to auscultation Gastrointestinal: normoactive bowel sounds, soft, non-tender abdomen, no palpable masses Genitourinary: other (atrophic (post menopausal), small ulceration vs abrasion at L labia minora crease, HSV culture done) Skin: no rashes or abrasions, no fluctuance, no induration Musculoskeletal: other (GERBER) Neurologic: AAOx3 Psychiatric: interacting appropriately, not anxious, not encephalopathic, thought process linear ICD10 Worksheet Patient Problems: Problems Problem Status Onset Chest pain Acute
[2017-01-31] MEDS: SENNOSIDES/DOCUSATE SODIUM TAB PO SCH (20:32)
[2017-01-31] MEDS: ZOLPIDEM TARTRATE 5 MG TAB PO PRN (22:27)
[2017-02-01] MEDS: HYDROmorphONE/DILAUDID 1 MG/ML SYR IVP PRN ×3 (03:33→15:20)
[2017-02-01] MEDS: ACETAMINOPHEN 325 MG TAB PO PRN (03:34)
[2017-02-01 04:06] VITALS: RESP 18
[2017-02-01 04:58] LABS: % IMMATURE GRANULYOCYTES 0.1 % (0.0-1.1); ABSOLUTE IMMATURE GRANULOCYTES 0.01 10^3/uL (0.00-0.10); ADD DIFF? NO; ADD MORPH? NO; ADD SCAN? NO; ATYPICAL LYMPHOCYTE FLAG 10 (0-99); FRAGMENT RBC FLAG 0 (0-99); HEMATOCRIT 36.5 % (38.0-47.0); HEMOGLOBIN 11.8 g/dL (12.6-16.3); LEFT SHIFT FLG 0 (0-99); LIPEMIA HEMOLYSIS FLAG 80 (0-99); MEAN CELL HEMOGLOBIN 31.1 pg (27.9-34.1); MEAN CELL HEMOGLOBIN CONCENTR. 32.3 g/dL (32.4-36.7); MEAN CELL VOLUME 96.3 fL (81.5-99.8); MEAN PLATELET VOLUME 9.6 fL (8.7-11.7); PLATELET CLUMPS FLAG 20 (0-99); PLATELET COUNT 237 10^3/uL (150-400); RED BLOOD CELL COUNT 3.79 10^6/uL (4.18-5.33); RED CELL DISTRIBUTION WIDTH 14.6 % (11.5-15.2)
[2017-02-01 05:14] LABS: APTT 24.6 SEC (23.0-38.0); CARBON DIOXIDE 23 mEq/l (22-31); CHLORIDE 110 mEq/L (97-110); INR 0.93 (0.83-1.16); POTASSIUM 4.6 mEq/L (3.5-5.2); PROTIME(PATIENT) 12.4 SEC (12.0-15.0); SODIUM 141 mEq/L (134-144)
[2017-02-01 05:15] LABS: ANION GAP 8 mEq/L (8-16); CALCIUM 9.1 mg/dL (8.5-10.4); CHOLESTEROL 180 mg/dL (140-220); CHOLESTEROL/HDL RATIO 2.34 RATIO (1.00-4.44); GLOMERULAR FILTRATION RATE 56; GLUCOSE 91 mg/dL (70-100); HIGH DENSITY LIPOPROTEIN 77 mg/dL (40-85); LDL/HDL RATIO 1.01 RATIO (1.00-3.22); LOW DENSITY LIPOPROTEIN 78 mg/dL (80-100); MAGNESIUM 1.9 mg/dL (1.6-2.3); NON-HIGH DENSITY LIPOPROTEIN 103 mg/dL (90-129); TRIGLYCERIDE 127 mg/dL (35-135); VERY LOW DENSITY LIPOPROTEINS 25 mg/dL (8-25)
[2017-02-01] MEDS ORDERED: diphenhydrAMINE 25 MG CAP PO ONE ×3 (06:00→09:37)
[2017-02-01] MEDS ORDERED: FAMOTIDINE 20 MG TAB PO ONE ×2 (06:00→09:30)
[2017-02-01] MEDS ORDERED: DIAZEPAM 5 MG TAB PO ONE ×2 (06:00→09:30)
[2017-02-01] MEDS ORDERED: ASPIRIN 325 MG TAB PO ONE (06:00)
[2017-02-01 07:39] VITALS: TEMP 97.8
[2017-02-01] MEDS: ATORVASTATIN CALCIUM 20 MG TAB PO SCH (08:41)
[2017-02-01] MEDS: LOSARTAN POTASSIUM 50 MG TAB PO SCH (08:41)
[2017-02-01] MEDS: PANTOPRAZOLE SODIUM 40 MG TAB PO SCH (08:41)
[2017-02-01] MEDS: THYROID 60 MG TAB PO SCH (08:41)
[2017-02-01] MEDS: NEBIVOLOL HCL 5 MG TAB PO SCH (08:47)
[2017-02-01] MEDS ORDERED: ASPIRIN EC 325 MG TAB PO ONE ×2 (09:30→09:38)
[2017-02-01] MEDS ORDERED: MIDAZOLAM 2 MG/2 ML VIAL ONE ×2 (09:36→10:10)
[2017-02-01] MEDS ORDERED: fentaNYL 100 MCG/2 ML INJ ONE (09:36)
[2017-02-01] MEDS ORDERED: LIDOCAINE 1% 300 MG/30 ML SDV ONE (09:36)
[2017-02-01] MEDS ORDERED: FAMOTIDINE 20 MG TAB ONE (09:37)
[2017-02-01] MEDS ORDERED: IOPAMIDOL (ISOVUE-370) 150 ML BTL IV ONE (09:37)
[2017-02-01] MEDS ORDERED: DIAZEPAM 5 MG TAB ONE (09:38)
[2017-02-01] MEDS ORDERED: HYDROCODONE/APAP 5/325 TAB PO PRN (11:19)
[2017-02-01] MEDS ORDERED: NITROGLYCERIN 0.4 MG BTL SL PRN (11:19)
[2017-02-01] MEDS ORDERED: OXYCODONE/APAP 5/325 TAB PO PRN (11:19)
[2017-02-01] MEDS ORDERED: ATROPINE SULFATE 1 MG/10 ML SYR IVP PRN (11:19)
[2017-02-01] MEDS ORDERED: ONDANSETRON 4 MG/2 ML VIAL IVP PRN (11:19)
--- NOTE | 2017-02-01 11:23 | PDCARPN ---
Cardiology Progress Note Chief Complaint: chest pains with associated jaw claudication and left arm discomfort Assessment/Plan: Assessment: Patient is a 66 y/o female with history of CAD s/p PCI (LAD, last intervention was 2010) with further history of breast cancer, renal cell cancer, HTN, and HLP , who presented to [facility] with signs and symptoms concerning for ACS. Chest pains and pressure were noted with radiation of symptoms into the left arm and jaw. Stress testing was "abnormal", but the findings were thought to be attenuation. Given ongoing symptoms, we opted to take the patient to the cardiac director of labor and delivery today. Plan: (1) Angiogram today - further recommendations after this testing has been completed Subjective: Left jaw pains with chest pains Reviewed/Discussed With: hospitalist, multidisciplinary team Objective: Vital Signs (8 Hrs) Temp Pulse Resp BP Pulse Ox 02/01/17 07:38 36.6 C 61 148/88 H 90 L 02/01/17 04:00 36.7 C 63 18 145/84 H 94 Intake/Output (24 Hrs) 01/31/17 02/01/17 02/02/17 05:59 05:59 05:59 Intake Total 320 Balance 320 Intake: Oral (ml) 320 Other: Intake Quantity npo Sufficient Number of Voids Toilet 1 Result Diagrams: 02/01/17 04:35 02/01/17 04:35 EKG: normal sinus rhythm at 50-55 bpm Telemetry: normal sinus rhythm - Physical Exam Constitutional: WDWN, healthy appearing, no apparent distress, obese Eyes: PERRL, EOMI Ears, Nose, Mouth, Throat: moist mucous membranes Cardiovascular: regular rate and rhythm, no murmurs, no rubs, no gallops, No systolic murmur Peripheral Pulses: 2+: dorsalis-pedis (R), dorsalis-pedis (L) Respiratory: clear to auscultate bilat, no crackles, no wheezes Gastrointestinal: no tenderness Skin: no edema Musculoskeletal: no muscular tenderness Neurologic: AAOx3, CN II-XII grossly intact Psychiatric: cooperative, interactive, following commands ICD10 Worksheet Patient Problems: Problems Problem Status Onset Chest pain Acute
--- NOTE | 2017-02-01 11:33 | PDDXCAT ---
Diagnostic Cath Note - . Date: 02/01/17 Yard Driver: Hari Indication: CCC Class III and IV angina on medical treatment, Serial noninvasive testing w progressively worsening abnormalities - Procedure Access: right groin Procedure: left heart catheterization, coronary angiography, left ventriculogram - Materials Left Heart Cath size: 6F Left Heart Cath materials: standard multipack (JL4, JR4, pigtail) - Findings-Left Heart Catheterization LM: short, bifurcating into the LAD and LCX vessels. no luminal irregularities were noted LAD: Medium sized vessel with stent to the proximal and mid vessel. Diagonal takes off within the stented segment. No appreciable in stent stenosis was noted, nor any further to the remainder of the LAD system LCX: Medium sized vessel with a smallish OM1 and a principal OM2 (the bulk of the LCX diameter continues into this branch vessel. No appreciable luminal irregularites were noted . RCA: Medium sized vessel (dominant) with supply to the PDA and WALTER vessels. No luminal irregularities were noted. EDP: 28 mm Hg LVEF: 60% Wall motion: Normal wall motion Complications: none Estimated blood loss: <50ml Closure method: Angioseal Assessment: Patient is a 66 y/o female with known history of CAD s/p PCI to the LAD (two stents) without appreciable luminal irregularities to the stented segment, nor the remainder of the coronary tree. Normal LVEF was noted with normal wall motion. Plan: Would continue medical management as at present. Consider GI assessment of the symptoms noted. Continue medical therapy as at present. Outpatient follow up with cardiology in 7-10 days is recommended. Intervention: none Patient Problems: Problems Problem Status Onset Chest pain Acute
[2017-02-01 12:01] VITALS: BP 150/103; PULSE 58; O2SAT 98
[2017-02-01] MEDS: POLYETHYLENE GLYCOL 3350 17 GM PKT PO SCH (12:08)
[2017-02-01] MEDS: SENNOSIDES/DOCUSATE SODIUM TAB PO SCH (12:08)
--- NOTE | 2017-02-01 13:00 | HOSPPROG ---
Hospitalist Progress Note Assessment/Plan: 66 yo F w cad here w cp hx CAD, s/p stents prev, EF 65%/+diastolic dysfunction on echo -trops OK, lexiscan OK but ongoing pain cath w non flow limiting CAD HTN -monitor closely, also has an anxiety component hyperlipidemia -po meds -recheck lipids in AM DJD/chronic paresthesia and pain -per informal discussion with neurosurg, orders given to her for CT myelograms of lumbar/cervical areas, flex/ext xrays of lumbar/cervical areas. Should schedule as o/p prior to appt with Dr Patten -discussed PCP options available yesterday and several referral names given, asked CM to assist also hx renal cancer, recent treatment. hx breast CA -needs [facility] appt to establish care, no active issues/concerns to warrant inpt eval at this time #dysuria -UA ordered, reflex culture -small ulcer vs irritation L labia, no hx hsv, PCR sent for completeness -constipated, bowel protocol started #hypothyroid -po med home today > 30 minutes Subjective: clean cath. ready for dc Objective: Vital Signs Temp Pulse Resp BP Pulse Ox 36.6 C 58 L 18 150/103 H 98 02/01/17 07:38 02/01/17 12:00 02/01/17 04:00 02/01/17 12:00 02/01/17 12:00 Laboratory Results 02/01/17 04:35 02/01/17 04:35 01/31/17 02/01/17 02/02/17 05:59 05:59 05:59 Intake Total 320 Balance 320 PT 12.4 SEC (12.0-15.0) 02/01/17 04:35 INR 0.93 (0.83-1.16) 02/01/17 04:35 - Physical Exam Constitutional: no apparent distress, appears nourished Eyes: PERRL, anicteric sclera Ears, Nose, Mouth, Throat: moist mucous membranes, hearing normal Cardiovascular: regular rate and rhythym, no murmur, rub, or gallop, other ( groin c/d/i) Respiratory: no respiratory distress, no rales or rhonchi Gastrointestinal: normoactive bowel sounds, soft, non-tender abdomen Genitourinary: no bladder fullness, No sheehan in urethra Skin: warm, normal color Musculoskeletal: full muscle strength, no muscle tenderness Neurologic: AAOx3, sensation intact bilaterally Psychiatric: interacting appropriately ICD10 Worksheet Patient Problems: Problems Problem Status Onset Chest pain Acute
--- NOTE | 2017-02-01 13:34 | GDS ---
[f rep st] DISCHARGE SUMMARY DISCHARGE DIAGNOSES: 1. Chest pain. 2. Coronary artery disease with stenting x2, last in 2010. 3. History of renal cell carcinoma in October 2016. 4. History of deafness with previous cochlear implant on the right. 5. History of breast cancer in 1983. 6. History of hot nodules requiring thyroidectomy. HOSPITAL COURSE: Procedures during this admission were angiogram, which revealed [id number] coronary disease. She had an echocardiogram showing no focal wall motion abnormalities with diastol ic dysfunction. No significant valvular lesions. She underwent angiogram despite a negative stress test because of ongoing pain. This was negative. She is on an aspirin, statin, beta obie. She was discharged home. Some connections were made with her for outpatient oncology followup as well as with Dr. Salinas for ongoing management of her back pain. /[id number]/MODL
[2017-02-03 14:47] LABS: SPECIMEN SOURCE L LABIA
== END 2017-02-01 17:30 | disposition home or self-care (01) | DRG 287 ==
LOC: F2W 17:10 → OBSVTOIN 01-31 17:44
PROVIDERS: ADMIT Hospitalist; ATTEND Hospitalist
DX: I25.110 Atherosclerotic heart disease of native coronary artery with unstable angina pectoris (principal); E89.0 Postprocedural hypothyroidism; I10 Essential (primary) hypertension; E78.5 Hyperlipidemia, unspecified; Z85.528 Personal history of other malignant neoplasm of kidney; Z85.3 Personal history of malignant neoplasm of breast; Z96.21 Cochlear implant status; Z95.5 Presence of coronary angioplasty implant and graft
CPT/HCPCS: 87529-90; 96374; 97161-GP; 97165-GO; 97535-GO; A9500; C1760; G0378; J1170; J1644; J1650; J2250; J2785; J3010; Q9967

== ENCOUNTER → 2017-02-11 | Outpatient (CLI) | payer BC ==
[~2017-02-11] MED LIST: IOPAMIDOL (ISOVUE-M 300) 15 ML VIAL ONE; LIDOCAINE 1% 300 MG/30 ML SDV ONE
== END ==
LOC: FIMAGING 08:12
PROVIDERS: ATTEND Family Medicine
PROC: B01B1ZZ Fluoroscopy of Spinal Cord using Low Osmolar Contrast (ICD-10-PCS; principal; 2017-02-11)
DX: M47.896 Other spondylosis, lumbar region (principal); M47.892 Other spondylosis, cervical region; M51.86 Other intervertebral disc disorders, lumbar region; M43.12 Spondylolisthesis, cervical region; M48.06 Spinal stenosis, lumbar region; M48.02 Spinal stenosis, cervical region; M53.86 Other specified dorsopathies, lumbar region; Z98.1 Arthrodesis status
CPT/HCPCS: Q9967

== ENCOUNTER 2017-03-25 10:54 | Inpatient (IN) | payer BC ==
[2017-03-25 11:47] LABS: % IMMATURE GRANULYOCYTES 0.4 % (0.0-1.1); ABSOLUTE IMMATURE GRANULOCYTES 0.04 10^3/uL (0.00-0.10); ADD DIFF? NO; ADD MORPH? NO; ADD SCAN? NO; ATYPICAL LYMPHOCYTE FLAG 10 (0-99); FRAGMENT RBC FLAG 0 (0-99); HEMATOCRIT 41.7 % (38.0-47.0); HEMOGLOBIN 13.6 g/dL (12.6-16.3); LEFT SHIFT FLG 0 (0-99); LIPEMIA HEMOLYSIS FLAG 80 (0-99); MEAN CELL HEMOGLOBIN 32.3 pg (27.9-34.1); MEAN CELL HEMOGLOBIN CONCENTR. 32.6 g/dL (32.4-36.7); MEAN PLATELET VOLUME 9.6 fL (8.7-11.7); PLATELET CLUMPS FLAG 10 (0-99); PLATELET COUNT 311 10^3/uL (150-400); RED BLOOD CELL COUNT 4.21 10^6/uL (4.18-5.33); RED CELL DISTRIBUTION WIDTH 13.8 % (11.5-15.2)
[2017-03-25 11:57] LABS: ALANINE AMINOTRANSFERASE 31 IU/L (9-52); ALBUMIN 4.5 g/dL (3.5-5.0); ALKALINE PHOSPHATASE 70 IU/L (38-126); ANION GAP 12 mEq/L (8-16); ASPARTATE AMINOTRANSFERASE 31 IU/L (14-46); BILIRUBIN,TOTAL 0.8 mg/dL (0.1-1.4); BILIRUBIN-CONJUGATED 0.6 mg/dL (0.0-0.5); BILIRUBIN-UNCONJUGATED 0.2 mg/dL (0.0-1.1); CALCIUM 9.8 mg/dL (8.5-10.4); CARBON DIOXIDE 27 mEq/l (22-31); CHLORIDE 101 mEq/L (97-110); CREATININE 0.8 mg/dL (0.6-1.0); GLOMERULAR FILTRATION RATE > 60; GLUCOSE 97 mg/dL (70-100); POTASSIUM 5.2 mEq/L (3.5-5.2); SODIUM 140 mEq/L (134-144); TOTAL PROTEIN 7.9 g/dL (6.3-8.2)
--- NOTE | 2017-03-25 12:05 | EDPHY ---
HPI/HX/ROS/PE/MDM Narrative: CHIEF COMPLAINT: Bilateral foot pain and swelling. HPI: The patient is a 66 y/o female with multiple comorbidities complaining of bilateral foot pain and swelling for the last day. Her medical history includes CAD with 2 stents, breast cancer, kidney cancer, significant degenerative joint disease of her spine with a recent cervical fusion last week. In the last couple days, she was walking down the stairs and skipped a step landing somewhat hard on both feet. She then developed pain and swelling in both feet and ankles, describing her feet as "baseballs." The pain radiates into both calves. She does have home pain medication available. She also mentions she had two 15-minute episodes of chest pain last night that felt worse than her prior heart attacks. This pain resolved after she took nitro. She was admitted here for similar symptoms on 01/29/17 REVIEW OF SYSTEMS: Aside from elements discussed in the HPI, a comprehensive 10-point review of systems was reviewed and is negative. PMH: CAD status post stenting x2 in 2007 and 2010, hypothyroidism, breast cancer status post modified radical mastectomy, recent kidney cancer diagnosis status post surgical resection without chemotherapy, severe degenerative joint disease of back waiting for nerve stimulator, cochlear implant, hypertension, hyperlipidemia, chronic pain, multiple orthopedic surgeries, cervical fusion 2016 - Dr. Sandoval. SOCIAL HISTORY: No tobacco. Occasional alcohol use. Recently relocated here. PHYSICAL EXAM: General:Patient is alert, in no acute distress. ENT:Eyes are normal to inspection. ENT inspection normal. Neck: Anterior throat surgical incision is clean, dry, and intact. C-collar in place. Respiratory:No respiratory distress. Breath sounds normal bilaterally. Cardiovascular: Regular rate and rhythm. Strong peripheral pulses. Normal cap refill. Abdomen:The abdomen is nontender to palpation. There are no peritoneal signs. There are normal bowel sounds. Back: Normal to inspection. No tenderness to palpation. Skin: Normal color. No rash. Warm and dry. Extremities: 1+ pedal edema bilaterally, otherwise normal appearance. Full range of motion. Neuro: Oriented x3. Normal motor function. Normal sensory function. ED Course: IV established. Labs drawn including CBC, CHEM, troponin, BNP, LFTs. Patient placed on panel monitor. 0.5mg IV Dilaudid administered. The 12 lead EKG was interpreted by myself. See hard copy and/or "tracemaster" electronic copy for interpretation. Patient's troponin is elevated at 0.054. Echocardiogram ordered. Spoke with hospitalist service. Dr. Ortega accepts admission. MDM: This patient presents with bilateral pedal edema, chest pain, and is found to have an elevated troponin. We will admit for further observation and treatment. - Data Points Laboratory Results: Laboratory Results 03/25/17 11:35 03/25/17 11:35 03/25/17 03/25/17 11:35 11:35 WBC 9.81 10^3/uL H 10^3/uL (3.80-9.50) RBC 4.21 10^6/uL 10^6/uL (4.18-5.33) Hgb 13.6 g/dL g/dL (12.6-16.3) Hct 41.7 % % (38.0-47.0) MCV 99.0 fL fL (81.5-99.8) MCH 32.3 pg pg (27.9-34.1) MCHC 32.6 g/dL g/dL (32.4-36.7) RDW 13.8 % % (11.5-15.2) Plt Count 311 10^3/uL 10^3/uL (150-400) MPV 9.6 fL fL (8.7-11.7) Neut % (Auto) 73.7 % % (39.3-74.2) Lymph % (Auto) 14.6 % L % (15.0-45.0) [place] % (Auto) 8.4 % % (4.5-13.0) Eos % (Auto) 2.4 % % (0.6-7.6) Baso % (Auto) 0.5 % % (0.3-1.7) Nucleat RBC Rel Count 0.0 % % (0.0-0.2) Absolute Neuts (auto) 7.23 10^3/uL H 10^3/uL (1.70-6.50) Absolute Lymphs (auto) 1.43 10^3/uL 10^3/uL (1.00-3.00) Absolute Monos (auto) 0.82 10^3/uL H 10^3/uL (0.30-0.80) Absolute Eos (auto) 0.24 10^3/uL 10^3/uL (0.03-0.40) Absolute Basos (auto) 0.05 10^3/uL 10^3/uL (0.02-0.10) Absolute Nucleated RBC 0.00 10^3/uL 10^3/uL (0-0.01) Immature Gran % 0.4 % % (0.0-1.1) Immature Gran # 0.04 10^3/uL 10^3/uL (0.00-0.10) Sodium 140 mEq/L mEq/L (134-144) Potassium 5.2 mEq/L mEq/L (3.5-5.2) Chloride 101 mEq/L mEq/L (97-110) Carbon Dioxide 27 mEq/l mEq/l (22-31) Anion Gap 12 mEq/L mEq/L (8-16) BUN 18 mg/dL mg/dL (7-23) Creatinine 0.8 mg/dL mg/dL (0.6-1.0) Estimated GFR > 60 Glucose 97 mg/dL mg/dL (70-100) Calcium 9.8 mg/dL mg/dL (8.5-10.4) Total Bilirubin 0.8 mg/dL mg/dL (0.1-1.4) Conjugated Bilirubin 0.6 mg/dL H mg/dL (0.0-0.5) Unconjugated Bilirubin 0.2 mg/dL mg/dL (0.0-1.1) AST 31 IU/L IU/L (14-46) ALT 31 IU/L IU/L (9-52) Alkaline Phosphatase 70 IU/L IU/L (38-126) Troponin I 0.054 ng/mL H ng/mL (0.000-0.034) NT-Pro-B Natriuret Pep 183 pg/mL H pg/mL (0-125) Total Protein 7.9 g/dL g/dL (6.3-8.2) Albumin 4.5 g/dL g/dL (3.5-5.0) Specimen Hemolysis EQUIPMENT DETAILER General Time Seen by Provider: 03/25/17 11:20 Initial Vital Signs: Initial Vital Signs Temperature (C) 36.7 C 03/25/17 11:00 Heart Rate 87 03/25/17 11:00 Respiratory Rate 18 03/25/17 11:00 Blood Pressure 119/86 H 03/25/17 11:00 O2 Sat (%) 91 L 03/25/17 11:00 O2 Delivery Mode Nasal Cannula O2 (L/minute) 2.5 Allergies/Adverse Reactions: No Known Allergies Allergy (Verified 03/25/17 10:57) Home Medications: Medication Instructions Recorded Atorvastatin Calcium [Lipitor 20 20 mg PO DAILY 01/29/17 mg (*)] Tizanidine HCl 4 mg PO QID 01/29/17 Zolpidem Tartrate [Ambien 10 mg] 5 - 10 mg PO HS PRN 01/29/17 clonazePAM [klonoPIN (*)] 1 mg PO TID PRN 01/29/17 FLUoxetine [Prozac 20 MG (*)] 20 mg PO DAILY 03/25/17 Gabapentin [Neurontin 300 MG (*)] 300 mg PO TID 03/25/17 HYDROmorphone HCL [Dilaudid 2 mg 2 - 4 mg PO Q6HRS PRN 03/25/17 (*)] Herbals/Supplements -Info Only 1 ea PO DAILY 03/25/17 Nitroglycerin [Nitrostat 0.4 mg 0.4 mg SL Q5M PRN 03/25/17 (*)] Thyroid [[place] Thyroid 60 MG (*)] 120 mg PO DAILY10 03/25/17 Apixaban [Eliquis] 5 mg PO BID 30 Days 03/28/17 HYDROmorphone HCL [Dilaudid 2 mg 2 - 4 mg PO Q6HRS PRN #30 tab 03/28/17 (*)] Nebivolol HCl [Bystolic] 20 mg PO DAILY #30 tablet 03/28/17 Departure - Departure Disposition: [facility] Acute Clinical Impression: Bilateral swelling of feet, Elevated troponin Chest pain Qualifiers: Chest pain type: other chest pain Qualified Code(s): R07.89 - Other chest pain Condition: Fair Report Scribed for: Franklin Maher Report Scribed by: Daisha Argueta Date of Report: 03/25/17 Time of Report: 11:54 Physician Review and Approval Statement: Portions of this note were transcribed by an ED scribe. I personally performed the history, physical exam, and medical decision making; and confirm the accuracy of the information in the transcribed note.
[2017-03-25 12:12] LABS: TROPONIN I 0.054 ng/mL (0.000-0.034)
--- NOTE | 2017-03-25 12:51 | CPEKG ---
Heart Rate: 75 RR Interval: 800 P-R Interval: 172 QRSD Interval: 74 QT Interval: 368 QTC Interval: 411 P Alto: 44 QRS Alto: 35 T Wave Alto: 60 EKG Severity - BORDERLINE ECG - EKG Impression: SINUS RHYTHM EKG Impression: BORDERLINE R WAVE PROGRESSION, ANTERIOR LEADS Electronically Signed By: Richard Scott 29-Mar-2017 07:40:46
[2017-03-25] MEDS ORDERED: HYDROmorphONE/DILAUDID 1 MG/ML SYR IVP ONE (12:59)
--- NOTE | 2017-03-25 14:36 | ECHO ---
[id number] + + [address] : : [place] [address] : : [phone] + + Adult Echocardiographic Report + ------+ :Name: ALENA CLARKE HStudy Date: 03/25/2017 01:06 PM : : Hospital Admission Number: [id number] Location : 22: :: 1950 Gender: Female Height: 62 in : :Age: 66 yrs Race: WH Weight: 165 lb : :Reason For Study: chest pain, ankles swelling, elev trop : : BSA: 1.8 meters2 : :History: h/o stents, cad : + ------+ MMode/2D Measurements \T\ Calculations IVSd: 0.95 cm RVDd: 2.5 cm FS: 30.0 % Ao root diam: LVPWd: 0.89 cm LVIDd: 3.5 cm EDV(Teich): 3.0 cm LVIDs: 2.5 cm 50.9 ml ESV(Teich): 21.2 ml EF(Teich): 58.3 % LVLd ap4: 7.9 cm SV(MOD-sp4): EDV(MOD-sp4): 55.0 ml 85.0 ml LVLs ap4: 6.4 cm ESV(MOD-sp4): 30.0 ml EF(MOD-sp4): 64.7 % Normal Measurement Values: + + :LVIDd (3.5-5.7cm) IVSd (0.6-1.1cm) LVPWd (0.6-1.1cm) Aortic Root (2.0-3.7cm)Left Atrium (1.5-4.0cm): :LV Vol(d) (76-115ml) LV Vol(s) (29-48ml) Ejec Fraction (50-65%)PV Bhupinder (0.6- 1.2m/s) TV Bhupinder (0.4-1.0m/s) : :MV E Bhupinder (0.8-1.0m/s)MV A Bhupinder (0.3-1.0m/s)LVOT Bhupinder (0.7-1.2m/s) Asc Ao Bhupinder ( 0.9-1.8m/s) : + + Doppler Measurements \T\ Calculations MV E max bhupinder: Ao V2 max: LV V1 max: PA V2 max: 68.6 cm/sec 178.0 cm/sec 108.0 cm/sec 111.0 cm/sec MV A max bhupinder: Ao max PG: LV V1 max PG: PA max P.0 cm/sec 12.7 mmHg 4.7 mmHg 4.9 mmHg MV E/A: 0.65 MV dec time: 0.30 sec Left Ventricle The left ventricle is normal in size and function. There is normal left ventricular wall thickness. Ejection Fraction = 65%. There is Doppler evidence for diastolic dysfunction. No regional wall motion abnormalities noted. Right Ventricle The right ventricle is normal in size and function. Atria The left atrial size is normal. Right atrial size is normal. Mitral Valve The mitral valve is normal in structure and function. There is no mitral valve stenosis. There is trace mitral regurgitation. Tricuspid Valve The tricuspid valve is normal in structure and function. There is no tricuspid stenosis. No tricuspid regurgitation. Aortic Valve The aortic valve is normal in structure and function. The aortic valve is trileaflet. Mild Aortic Valve Calcification. There is no aortic stenosis. There is no aortic insufficiency. Pulmonic Valve The pulmonic valve is normal in structure and function. Great Vessels The aortic root is normal size. Pericardium/Pleural There is no pericardial effusion. Conclusion A two-dimensional transthoracic echocardiogram with M-mode and Doppler was performed. The left ventricle is normal in size and function. Ejection Fraction = 65%. Normal wall motion. There is Doppler evidence for diastolic dysfunction. Mild aortic sclerosis. No significant valvular stenosis or insufficiency. Since previous echocardiogram 01-30-17 there has been no significant change. Final Reading Physician: Tony Angel signed on 03/25/2017 02:34 PM Ordering Physician: Franklin Maher Performed By: Stephanie Espinal
[2017-03-25] MEDS ORDERED: NITROGLYCERIN 0.4 MG BTL SL PRN (16:14)
[2017-03-25] MEDS ORDERED: ALBUTEROL 60 PUFFS/8 GM MDI IH PRN (17:02)
[2017-03-25] MEDS ORDERED: ONDANSETRON 4 MG/2 ML VIAL IVP PRN (17:02)
[2017-03-25] MEDS ORDERED: ONDANSETRON DISINTEGRATING 4 MG TAB PO PRN (17:02)
[2017-03-25] MEDS: HYDROmorphONE/DILAUDID 2 MG TAB PO PRN ×2 (17:02→23:34)
[2017-03-25] MEDS ORDERED: POLYETHYLENE GLYCOL 3350 17 GM PKT PO PRN (17:06)
[2017-03-25] MEDS ORDERED: IOPAMIDOL (ISOVUE 370) 100 ML BTL IV ONE (17:06)
[2017-03-25] MEDS ORDERED: BISACODYL 10 MG SUPP PR PRN (17:06)
[2017-03-25] MEDS ORDERED: LACTULOSE 20 GM/30 ML UDCUP PO PRN (17:06)
[2017-03-25] MEDS ORDERED: MAGNESIUM HYDROXIDE 30 ML UDCUP PO PRN (17:06)
[2017-03-25] MEDS: NEBIVOLOL HCL 5 MG TAB PO SCH (17:06)
--- NOTE | 2017-03-25 17:40 | GHP ---
[f rep st] HISTORY AND PHYSICAL DATE OF ADMISSION: 03/25/2017 CHIEF COMPLAINT: Chest pain and peripheral edema. HISTORY OF PRESENT ILLNESS: A 66-year-old female with a prior history of coronary artery disease st atus post 2 stents in 2007 and 2010, who presents today with a complaint of chest pain. She was see n on 01/29/2017 for similar complaint, underwent a cardiac catheterization without finding of any si gnificant lesions. One week [employer]S LIBRARIAN she had a cervical spine surgery by Dr. Salinas. The procedu re went well and without difficulties. Approximately 5 days ago, she suddenly slipped on steps and landed on both feet coming down the steps. It did not jar her neck but she did have some pain in he r feet and has subsequently she said developed peripheral edema in both legs and difficulty walking worse on the left than on the right. One day AC[employer]S LIBRARIAN then, she had anterior chest pain lasting approxim ately 5 minutes, with associated nausea without diaphoresis or shortness of breath. She used 1 nitr oglycerin which did not burn under her tongue and did not give her a headache and thus I believe it was old. The pain has resolved but she now presents with the complaint of chest pain at that time, peripheral edema, pain in her legs. Initial evaluation showed that her troponin was elevated withou t changes on her ECG. The echocardiogram shows a normal ejection fraction and normal wall motion wi th evidence of a diastolic dysfunction. The patient has been admitted for evaluation of her chest p ain. PAST MEDICAL HISTORY: 1. Coronary artery disease status post stenting x2 in 2007 and then 2010. She has had stable coron harvey disease but then an evaluation in December 2016 for complaint of chest pain with a normal cardiac ca theterization without significant lesions. 2. Hypothyroidism for which she is status post a thyroidectomy and on thyroid medication. 3. Status post breast cancer with a modified radical mastectomy in 1982. At this point, she is con sidered a cure. 4. Renal cell carcinoma with a partial left nephrectomy in October of 2016 without adjuvant chemo or radiation therapy. She has been told to have a CAT scan followup 6 months following that surgery in 05/2017. 5. Severe degenerative joint disease of the back, she is status post lumbar fusion and has had cerv ical surgery also by Dr. Salinas 1 week prior to this in March 2017. 6. Hypertension, and she has had a recent increase in her Bystolic from 5-10 mg per day, along with the addition of amlodipine 1 month ago. 7. Hyperlipidemia. 8. 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 9. Chronic pain. PAST SURGICAL HISTORY: She has had bilateral knee surgery, breast implants, left partial nephrectom y in October 2016, modified radical mastectomy in 1982, partial thyroidectomy for hyperthyroidism. SOCIAL HISTORY: Is negative for tobacco. She has alcohol once or twice a month and no use of illic it drugs. 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 FAMILY HISTORY: Positive for heart disease in her mother. REVIEW OF SYSTEMS: A 10-point review of systems is negative except as noted in the HPI. MEDICATIONS: Medications are noted in the EMR and will be reconciled. ALLERGIES: No known allergies. PHYSICAL EXAMINATION: GENERAL: This is a pleasant, alert female who appears in a [facility] ar postoperative of her cervical surgery 1 week [employer]IAN. She has no complaints of chest pain or neck pa in. VITAL SIGNS: Blood pressure is slightly elevated on 1 reading, but now has fallen. She is afe brile. Pulse is in the 70s and 80s regular, and she has normal oxygen saturation. HEENT: Shows th at she has a surgical wound healing well in the left anterior cervical region with some surrounding edema and induration without erythema. The wound appears to be healing well. The collar was remove d for the examination and then replaced. Her posterior oropharynx is normal. No signs of scleral i cterus. She has a right-sided cochlear implant for deafness. She is hard of hearing in the left ea r and usually uses a hearing aid there. CHEST WALL: Nontender to palpation and in particular, the anterior sternal region shows no signs of trauma or tenderness or inflammation. There is no inspira tory splinting. LUNGS: Clear to P and A without wheezing or rales. HEART: Singular S1, S2. No m urmur or gallop. ABDOMEN: Slightly overweight. Normoactive bowel sounds. No masses, tenderness, or organomegaly. EXTREMITIES: She has 1 to 2+ peripheral edema. There is ecchymosis noted around the left lateral malleolus with tenderness to palpation in the region. Drawer sign was negative. T he right transverse arch is also slightly ecchymotic and tender and again there is 1 to 2+ periphera l edema there extending up to the level of the calf. Note, there is no ascending lymphangitis or si gns of cellulitis. Homans sign is negative. There are no palpable cords. There is tenderness on t he left lateral fibular surface with some ecchymosis also above the ankle. NEUROLOGIC: Symmetric a nd normal. LABORATORY: CBC is normal although the WBC is only slightly elevated, approximately 10,000. Her CM P is normal. BNP very mildly elevated at 183 with an elevated troponin at 0.054. Electrocardiogram shows a normal sinus rhythm with borderline R-wave progression across the precordi um. The axis is normal and aside from the borderline R-wave progression it is nonacute. Echocardiogram shows a normal ejection fraction 65% with normal wall motion abnormality and evidence of diastolic dysfunction. Mild aortic stenosis and no significant valvular stenosis or insufficien cy otherwise. In comparison to a previous echo in 01/30/2017, there is no significant change. The findings above were discussed with Dr. Charlie Winchester with Cardiology. ASSESSMENT: 1. Acute chest pain of questionable cardiac or possibly pulmonary disorder. The chest pain only la sted 5 minutes and yet this woman has a known history of coronary disease, yet she also had a normal coronary angiogram approximately 1 month ago. It is possible she could have a ruptured a plaque al though the pain has not been persistent. Despite that thinking, her troponin is elevated. Thus we will cycle her troponins to see if it is declining and should that be the case, consideration of a c ardiac cath could be made. In addition, she has had sudden chest pain, has been relatively immobile secondary to her cervical surgery and head trauma and her lower extremities along with ecchymosis o n physical exam and edema. The edema could be explained by amlodipine but the ecchymoses cannot. T hus, it is possible due to relative immobility the lady could be suffering chest pain secondary to a pulmonary embolus. Plan here would be to do a CTA of the chest to rule out a pulmonary embolus and then whether that is positive her negative decide if we need to proceed with further cardiac evalua tion. 2. Peripheral edema. May be secondary to amlodipine which was started a month ago. We will stop h er amlodipine and increase her Bystolic for treatment of her hypertension. 3. Hypertension. She is both hypertensive and normotensive. I am going to stop her amlodipine and increase her Bystolic to 20 mg a day. 4. Status post cervical surgery with a well-healing surgical wound. 5. Pain control. We will continue her usual medications and I will order her a small dose of Dilau did if needed. PLAN: 1. A CTA of the chest to rule out a pulmonary embolus. 2. Cycle her troponins. 3. A bowel care protocol. 4. Should we need to anticoagulate, I will discuss that further with Neurosurgery. TIME: This admission required 60 minutes. The case has been discussed with Dr. Charlie Winchester. BILLING: The patient will be admitted to inpatient for full evaluation of her possible cardiopulmon harvey problem and the problems of chest pain. /[id number]/MODL
--- NOTE | 2017-03-25 19:21 | GCON ---
[f rep st] CONSULTATION DATE OF CONSULTATION: 03/25/2017 CHIEF COMPLAINT: We have been asked by Dr. Ortega to evaluate the patient with the chief complaint of chest pain. HISTORY OF PRESENT ILLNESS: Patient is a 66-year-old female with known coronary artery disease, who presents with a chief complaint of chest pain. Patient was in her usual state of health until the evening prior to admission when she experienced an episode of chest pain. The chest pain was described as an intense ache in the center of her chest without radiation. The chest discomfort was not associated with nausea, vomiting, or diaphoresis. Patient did note some shortness of breath with the chest discomfort. The chest pain was not respirophasic or positional. Patient did take one of her nitroglycerin tablets and did not notice a significant improvement in her symptoms. Patient does, however, report that her nitroglycerin is outdated and she did not experience a burning sensation under her tongue after taking the nitroglycerin. The chest pain resolved without intervention. Patient reports a 2nd episode of chest pain approximately 30 minutes later, which also resolved without intervention. Patient presented to the emergency department today for further evaluation. Her EKG demonstrated no acute ST or T-wave changes. Her troponin was mildly elevated. We were consulted to help in the further management of this patient. The patient does have a previous history of coronary artery disease. In 2007 she presented with an acute coronary syndrome and she was treated with percutaneous coronary intervention. Patient subsequently underwent repeat percutaneous coronary intervention in 2010. Her anginal symptoms at that time were neck discomfort extending into her shoulder and arm. Patient denies symptoms of chest pain with her previous episodes of acute coronary syndrome. Patient did recently present to [facility] with her typical anginal symptoms which would be neck and shoulder pain. Cardiac catheterization at that time demonstrated no significant obstructive disease. Patient is status post recent cervical surgery. Cervical surgery occurred approximately 1 week prior to admission. Patient was kept in the hospital for 1 day and then returned home. Upon returning home, she reported limited physical activity, as she felt fairly sore after the surgery. Patient does report walking down the stairs, slipping on one of the steps and landing on her two feet. Shortly after this, she noted lower extremity swelling as well as some lower extremity discomfort. Patient also has a history of hypertension. She was recently started on losartan as well as amlodipine. PAST MEDICAL HISTORY: 1. Coronary artery disease. 2. Supraventricular tachycardia. 3. Chronic back pain status post spinal fusion at L4 and L5. 4. History of deafness status post cochlear implant. 5. Hypertension. 6. Hyperlipidemia. 7. Breast cancer in 1983 status post modified radical mastectomy. 8. History of renal cell carcinoma in October of 2016, status post partial nephrectomy. 9. Peripheral neuropathy. 10. Hot nodules in her thyroid. 11. History of breast plants with subsequent rupture. 12. History of migraine headaches. 13. Osteoarthritis. 14. Status post left total knee arthroplasty. 15. Right femur fracture status post repair. MEDICATIONS: Please see medicine reconciliation form. ALLERGIES: No known drug allergies. SOCIAL HISTORY: Patient recently moved to [place] to be closer to family. She does not smoke. She denies problems with alcohol. FAMILY HISTORY: Noncontributory. REVIEW OF SYSTEMS: 10-point review of systems is negative, except as noted in HPI. PHYSICAL EXAMINATION: GENERAL: The patient is resting comfortably in bed. She does not appear to be in acute distress. She has not had any further episodes of chest pain since her index events in the evening. VITAL SIGNS: Temperature is afebrile. Pulse is 75, blood pressure 88/54, respiratory rate is 14, SaO2 is 97% on 2 L nasal cannula. HEENT: Normocephalic, atraumatic. Extraocular muscles intact. Patient does have a cochlear implant. She does have a cervical neck brace on. Could not listen for bruits or evaluate JVD. LUNGS: Clear to auscultation bilaterally. CARDIOVASCULAR: Regular rate and rhythm S1, S2. No murmurs, rubs, or gallops. ABDOMEN: Soft, nontender. No hepatosplenomegaly. Could not palpate aorta. EXTREMITIES: Mild bilateral lower extremity edema. No evidence of stasis changes. NEURO: Patient is awake, alert , and oriented x3. LABORATORY: White blood cell count is 9.81, hemoglobin is 13.6, hematocrit is 41.7. Platelet count is 311, sodium 140, potassium 5.2, chloride 101, CO2 27, BUN 18, creatinine 0.8. Troponin 0.054. ASSESSMENT AND PLAN: Patient is a 66-year-old female with: 1. Chest pain. Patient presents with 2 episodes of chest pain the evening prior to admission. The chest pain is not like her previous anginal chest pain. Cardiac catheterization in January of 2017 demonstrated patent stents with no significant obstructive coronary artery disease. Given her recent cervical surgery, limited mobility and recent onset of lower extremity edema, I think it would be prudent to obtain a CT angiogram to exclude pulmonary embolism as a cause for her symptoms. In addition, would cycle her cardiac enzymes as she had a mild troponin elevation. If there was a typical rise and fall in her troponin, I would be concerned about potential ischemic event, would favor cardiac catheterization. If there is not a typical rise and fall in the troponin, then would consider less invasive strategies for risk stratification. 2. Coronary artery disease. Patient has known coronary artery disease and is status post previous percutaneous coronary intervention in 2007 as well as in 2010. Her last angiographic evaluation was 1 month previously demonstrating patent stents and no significant obstructive disease. Will continue medical management at this time with aspirin, atorvastatin, losartan and Bystolic. 3. Edema. Patient presents with recent onset of bilateral lower extremity edema. Her echocardiogram demonstrates normal left ventricular systolic function with no significant valvular disease. The differential diagnosis would include DVT given her postoperative setting, trauma related to her slip on the staircase and recent addition of amlodipine. At this time, would discontinue amlodipine. Will manage blood pressure as outlined below. 4. Hypertension. Patient has a history of hypertension. Her blood pressure has been managed with Bystolic, losartan and recently amlodipine. Would discontinue amlodipine and increase Bystolic to help control her blood pressure. /[id number]/MODL MTDD
[2017-03-25] MEDS: SENNOSIDES/DOCUSATE SODIUM TAB PO SCH (19:43)
[2017-03-25] MEDS: clonazePAM 1 MG TAB PO PRN (19:43)
[2017-03-25] MEDS ORDERED: HEPARIN/DEXTROSE 500 ML IV SCH (19:45)
[2017-03-25] MEDS ORDERED: HEPARIN 10,000 UNIT/10 ML MDV IVP PRN (19:45)
--- NOTE | 2017-03-25 19:50 | HOSPPROG ---
Hospitalist Progress Note Assessment/Plan: Called by Dr Man with +PE. He had initially read CTA as negative but on review identified a small LLE subsegmental PE. I discussed with Dr Sandoval regarding her safety to anticoagulate - he feels that she is safe. I discussed with Ms Mixon - she is unclear if the CP was left sided but it may have been. I also note she has bilat LE edema. The question of whether to anticoagulate is difficult - she has a small PE ( that is likely symptomatic). Her risk factor is two recent surgeries. These put her at higher bleeding risk, but Dr Sandoval feels that she is a reasonable risk. Plan: - heparin gtt, no bolus - Q2 neuro checks - bilat LE US stat 35 minutes of direct [id number] patient care, in addition to previous time spent. Objective: Vital Signs Temp Pulse Resp BP Pulse Ox 36.6 C 75 14 97/64 L 95 03/25/17 16:13 03/25/17 16:13 03/25/17 16:13 03/25/17 16:56 03/25/17 18:00 03/24/17 03/25/17 03/26/17 05:59 05:59 05:59 Intake Total 620 Balance 620 ICD10 Worksheet Patient Problems: Problems Problem Status Onset Chest pain Acute Bilateral swelling of feet Acute Elevated troponin Acute
[2017-03-25 21:07] LABS: COLOR YELLOW; LEUKOCYTE ESTERASE,URINE NEGATIVE (NEGATIVE); NITRITE,URINE NEGATIVE (NEGATIVE)
[2017-03-25 21:29] LABS: % IMMATURE GRANULYOCYTES 0.5 % (0.0-1.1); ABSOLUTE IMMATURE GRANULOCYTES 0.04 10^3/uL (0.00-0.10); ADD DIFF? NO; ADD MORPH? NO; ADD SCAN? NO; ATYPICAL LYMPHOCYTE FLAG 10 (0-99); FRAGMENT RBC FLAG 0 (0-99); HEMATOCRIT 32.9 % (38.0-47.0); HEMOGLOBIN 10.7 g/dL (12.6-16.3); LEFT SHIFT FLG 0 (0-99); LIPEMIA HEMOLYSIS FLAG 80 (0-99); MEAN CELL HEMOGLOBIN CONCENTR. 32.5 g/dL (32.4-36.7); MEAN CELL VOLUME 98.5 fL (81.5-99.8); MEAN PLATELET VOLUME 9.6 fL (8.7-11.7); PLATELET CLUMPS FLAG 0 (0-99); PLATELET COUNT 251 10^3/uL (150-400); RED BLOOD CELL COUNT 3.34 10^6/uL (4.18-5.33); RED CELL DISTRIBUTION WIDTH 13.9 % (11.5-15.2)
[2017-03-25 21:40] LABS: INR 0.98 (0.83-1.16); PROTIME(PATIENT) 12.9 SEC (12.0-15.0)
[2017-03-25 21:41] LABS: APTT 23.4 SEC (23.0-38.0)
[2017-03-25] MEDS: NS 1,000 ML IV SCH (22:22)
[2017-03-25] MEDS: ZOLPIDEM TARTRATE 5 MG TAB PO PRN (22:50)
[2017-03-25] MEDS: GABAPENTIN 300 MG CAP PO SCH (23:39)
[2017-03-26 05:18] LABS: % IMMATURE GRANULYOCYTES 0.5 % (0.0-1.1); ABSOLUTE IMMATURE GRANULOCYTES 0.04 10^3/uL (0.00-0.10); ADD DIFF? NO; ADD MORPH? NO; ADD SCAN? NO; ATYPICAL LYMPHOCYTE FLAG 40 (0-99); FRAGMENT RBC FLAG 0 (0-99); HEMATOCRIT 33.6 % (38.0-47.0); HEMOGLOBIN 10.6 g/dL (12.6-16.3); LEFT SHIFT FLG 0 (0-99); LIPEMIA HEMOLYSIS FLAG 80 (0-99); MEAN CELL HEMOGLOBIN 31.6 pg (27.9-34.1); MEAN CELL HEMOGLOBIN CONCENTR. 31.5 g/dL (32.4-36.7); MEAN CELL VOLUME 100.3 fL (81.5-99.8); MEAN PLATELET VOLUME 9.7 fL (8.7-11.7); PLATELET CLUMPS FLAG 0 (0-99); PLATELET COUNT 265 10^3/uL (150-400); RED BLOOD CELL COUNT 3.35 10^6/uL (4.18-5.33); RED CELL DISTRIBUTION WIDTH 13.8 % (11.5-15.2)
[2017-03-26 05:45] LABS: TROPONIN I 0.036 ng/mL (0.000-0.034)
[2017-03-26] MEDS: HYDROmorphONE/DILAUDID 2 MG TAB PO PRN ×3 (06:08→18:28)
[2017-03-26] MEDS ORDERED: ENOXAPARIN 40 MG/0.4 ML SYR SC SCH (09:00)
--- NOTE | 2017-03-26 09:07 | CPEKG ---
Heart Rate: 70 RR Interval: 857 P-R Interval: 184 QRSD Interval: 74 QT Interval: 384 QTC Interval: 415 P [place]: 46 QRS [place]: 19 T Wave [place]: 38 EKG Severity - BORDERLINE ECG - EKG Impression: SINUS RHYTHM EKG Impression: BORDERLINE R WAVE PROGRESSION, ANTERIOR LEADS Electronically Signed By: Rojas Rand 29-Mar-2017 10:23:51
[2017-03-26] MEDS: GABAPENTIN 300 MG CAP PO SCH ×3 (09:34→20:42)
[2017-03-26] MEDS: THYROID 60 MG TAB PO SCH (09:34)
[2017-03-26] MEDS: ATORVASTATIN CALCIUM 20 MG TAB PO SCH (09:34)
[2017-03-26] MEDS: HYDROmorphONE/DILAUDID 1 MG/ML SYR IVP PRN (09:35)
[2017-03-26] MEDS: FLUoxetine 20 MG CAP PO SCH (09:35)
[2017-03-26] MEDS: SENNOSIDES/DOCUSATE SODIUM TAB PO SCH ×2 (09:38→20:42)
[2017-03-26] MEDS: LOSARTAN POTASSIUM 50 MG TAB PO SCH (10:32)
[2017-03-26] MEDS: NEBIVOLOL HCL 5 MG TAB PO SCH (10:32)
[2017-03-26] MEDS: NS 1,000 ML IV SCH ×2 (13:38→21:00)
[2017-03-26] MEDS: ENOXAPARIN 80 MG/0.8 ML SYR SC SCH ×2 (13:40→20:42)
--- NOTE | 2017-03-26 14:23 | SOAPPROG ---
[facility] Progress Note Assessment/Plan: 1. Chest pain - Pt presented with chest pain and a mildly elevated troponin. The chest pain was not like her previous angina. Angiogram in 02/15 with patent stents and no significant obstructive disease. Echocardiogram with preserved LVEF and no segmental WMA. Pt was found to have a superficial venous thrombosis as well as a pulmonary embolus. She denies further episodes of chest pain. Suspect the chest pain and mildly elevated troponin is secondary to her PE. No further work up at this time. 2. CAD - Pt has known CAD and is s/p PCI in 2007 and 2010. Angiogram in 02/15 with patent stents and no significant obstructive disease. She denies symptoms of angina. Continue secondary prevention with asa, bystolic, losartan, and atorvastatin. 3. HTN - Well controlled on bystolic and losartan. Continue current therapy. 4. Fibular fracture - Pt is s/p B fibular fractures 5. SVT/PE - Pt has a superficial venous thrombosis and a small PE 6. Disposition - Pt has scheduled follow up with cardiology. Will sign off for now. Please re-consult if we can be of service. Subjective: No chest pain No orthopnea or PND limb pain improved + SVT + PE + B fibular fracture Objective: Vital Signs Temp Pulse Resp BP Pulse Ox 36.5 C 67 16 123/82 H 94 03/26/17 11:32 03/26/17 08:00 03/26/17 11:32 03/26/17 11:32 03/26/17 11:32 Laboratory Results 03/26/17 04:25 03/25/17 03/26/17 03/27/17 05:59 05:59 05:59 Intake Total 820 Output Total 2100 Balance 820 -2100 PT 12.9 SEC (12.0-15.0) 03/25/17 21:15 INR 0.98 (0.83-1.16) 03/25/17 21:15 Physical Exam - Physical Exam General Appearance: alert, no apparent distress Respiratory: lungs clear Cardiac/Chest: regular rate, rhythm, systolic murmur Abdomen: non-tender, soft Extremities: pedal edema Neuro/Psych: alert ICD10 Worksheet Patient Problems: Problems Problem Status Onset Bilateral swelling of feet Acute Chest pain Acute Elevated troponin Acute
[2017-03-26] MEDS ORDERED: WARFARIN SODIUM 5 MG TAB PO SCH (16:45)
[2017-03-26] MEDS: clonazePAM 1 MG TAB PO PRN (16:45)
--- NOTE | 2017-03-26 16:47 | HOSPPROG ---
Hospitalist Progress Note Assessment/Plan: 66-year-old female admitted with a complaint of chest pain. Her troponin was slightly elevated and her chest pain was mildly atypical. CTA of the chest showed findings of a pulmonary embolus and she has been started on anticoagulation. -acute pulmonary embolus: The patient was started on heparin is transition now to Lovenox and Coumadin and is doing well oxygenation is adequate on room air. -acute bilateral fibular fractures: I have discussed the case with Orthopedics and Dr. Sylwia Naik. He suggested a boot on the left leg and Ludwin wrapping the right leg for comfort. -coronary artery disease status post remote stenting. At this time there is no evidence of active coronary ischemia. -peripheral edema: This is likely secondary to her acute fractures. An ultrasound of the lower extremities was negative for a DVT. Thus the actual source of her clot is unclear at this time. - Subjective: Reports she is feeling improved. No complaints of chest pain shortness of breath nausea vomiting fever or chills Objective: Vital Signs Temp Pulse Resp BP Pulse Ox 36.9 C 77 16 91/58 L 97 03/26/17 16:00 03/26/17 16:00 03/26/17 16:00 03/26/17 16:00 03/26/17 16:00 03/25/17 03/26/17 03/27/17 05:59 05:59 05:59 Output Total 100 Balance -100 PT 12.9 SEC (12.0-15.0) 03/25/17 21:15 INR 0.98 (0.83-1.16) 03/25/17 21:15 - Time Spent With Patient Time Spent with Patient: greater than 35 minutes Time Spent with Patient: Greater than 35 minutes spent on this patients care, greater than 50% of time spent counseling, educating, and coordinating care regarding the above mentioned plan. - Pending Discharge Pending Discharge Within 24 Hours: No Pending Discharge Within 48 Hours: Yes Pending Discharge Date: 03/28/17 Pending Discharge Time: 11:00 - Physical Exam Constitutional: no apparent distress Eyes: PERRL, anicteric sclera Ears, Nose, Mouth, Throat: moist mucous membranes, hard of hearing, other ( Implant in the right ear. She usually uses a hearing aid in the left but she does not have it at this time.) Cardiovascular: regular rate and rhythym, no murmur, rub, or gallop, systolic murmur, JVD (JVD is not elevated) Respiratory: no respiratory distress, no rales or rhonchi, clear to auscultation , other (No chest wall splinting or tenderness) Gastrointestinal: normoactive bowel sounds, soft, non-tender abdomen, no palpable masses Genitourinary: no bladder fullness Skin: warm Musculoskeletal: full muscle strength Neurologic: AAOx3, CN II-XII Intact Psychiatric: interacting appropriately ICD10 Worksheet Patient Problems: Problems Problem Status Onset Bilateral swelling of feet Acute Chest pain Acute Elevated troponin Acute
[2017-03-26] MEDS: ZOLPIDEM TARTRATE 5 MG TAB PO PRN (22:14)
[2017-03-27] MEDS: HYDROmorphONE/DILAUDID 2 MG TAB PO PRN ×2 (01:51→08:03)
[2017-03-27] MEDS: HYDROmorphONE/DILAUDID 1 MG/ML SYR IVP PRN ×2 (01:54→06:09)
[2017-03-27] MEDS: NS 1,000 ML IV SCH (05:05)
[2017-03-27 05:26] LABS: INR 1.07 (0.83-1.16); PROTIME(PATIENT) 13.8 SEC (12.0-15.0)
[2017-03-27] MEDS: FLUoxetine 20 MG CAP PO SCH (08:04)
[2017-03-27] MEDS: LOSARTAN POTASSIUM 50 MG TAB PO SCH (08:04)
[2017-03-27] MEDS: GABAPENTIN 300 MG CAP PO SCH ×3 (08:06→21:45)
[2017-03-27] MEDS: NEBIVOLOL HCL 5 MG TAB PO SCH (08:06)
[2017-03-27] MEDS: ATORVASTATIN CALCIUM 20 MG TAB PO SCH (08:06)
[2017-03-27] MEDS: SENNOSIDES/DOCUSATE SODIUM TAB PO SCH ×2 (08:07→21:45)
[2017-03-27] MEDS: ENOXAPARIN 80 MG/0.8 ML SYR SC SCH (08:08)
[2017-03-27] MEDS: METHOCARBAMOL 750 MG TAB PO PRN ×2 (08:14→16:56)
--- NOTE | 2017-03-27 11:19 | PDHOMEO2F ---
Home Oxygen Face to Face Home Orders: I certify that a physician or a nurse practitioner or physician's commercial lines assistant has had a [id number] encounter with this patient on the date of this order due to the diagnosis listed, which relates to the primary reason the patient requires home oxygen. Alternative treatments have been tried, or considered, and deemed ineffective. It is anticipated that supplemental oxygen will result in improvement with treatment. Home oxygen qualifying diagnosis: pulmonary embolism SpO2 on room air (%): 77 at rest Frequency of home oxygen needed: continuous Home oxygen liters per minute: 2 Home oxygen delivery device: nasal cannula Concentrator: Yes E-tanks for mobility and back up: Yes If ordering portable O2, is the patient mobile in the home?: Yes I certify that, based on these findings, the home oxygen is medically necessary for this patient for the following length of time. Length of time home oxygen needed: 1 month
[2017-03-27] MEDS: THYROID 60 MG TAB PO SCH (12:38)
[2017-03-27] MEDS ORDERED: NS 1,000 ML IV ONE (13:30)
--- NOTE | 2017-03-27 14:48 | HOSPPROG ---
Hospitalist Progress Note Assessment/Plan: 66-year-old female admitted with a complaint of chest pain. Her troponin was slightly elevated and her chest pain was mildly atypical. CTA of the chest showed findings of a pulmonary embolus and she has been started on anticoagulation. -acute pulmonary embolus: The patient was started on heparin is transition now to Eliquis. Patient requested this as she will have difficulty with mobility, getting labs draw, etc. -acute bilateral fibular fractures: I have discussed the case with Orthopedics and Dr. Sylwia Naik. He suggested a boot on the left leg and Ludwin wrapping the right leg for comfort. She will require a walker. Per Orthopedics she can have weight-bearing as tolerated with the support devices as noted -coronary artery disease status post remote stenting. At this time there is no evidence of active coronary ischemia. -peripheral edema: This is likely secondary to her acute fractures. An ultrasound of the lower extremities was negative for a DVT. Thus the actual source of her clot is unclear at this time. -essential hypertension: Her blood pressure had been under usually good control but today there is a new problem of hypotensive. This is probably secondary to excessive use of narcotic medication. She has been given 1 L of normal saline with some improvement in her blood pressure though her mental status is improving during this time also. -bilateral lower extremity pain secondary to bilateral fibula fractures. Patient has taken too much narcotic while here in the hospital and is now with slurred speech and moderate hypotension. She has been getting saline hydration and is improving all decrease her narcotic medications. 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 Patient now cleared by Neurosurgery and safer full-dose anticoagulation. She should follow up in the next 2 weeks 3 weeks with Neurosurgery. -chronic problems: *Bilateral hearing loss and the patient uses a cochlear implant in the right ear and hearing aid on the left. *Hypothyroidism currently under treatment * is status post breast carcinoma with mastectomy in 1982, patient now considered a cure * renal cell carcinoma status post partial left nephrectomy in October 2016 without adjuvant chemo or radiation therapy * CV ear DJD of the back * hyperlipidemia * chronic pain and chronic narcotic use Plan: Patient will be discharged to a rehabilitation center which is being determined by case management. Due to her bilateral fibular fractures she is having difficulty with mobility. Patient is accepting of this for the next 1-2 weeks as needed. She does have a daughter here in town but feels that she will be unable to function in her daughter's home as she will need more care than the daughter can give. -follow-up with Pulmonary, Dr. Dionicio Kwan, for long-term anticoagulation therapy for her pulmonary embolus Plan follow-up: Neurosurgery and Dr. Dionicio Kwan. Patient is new to the area and has no PCP Disposition: Next 1-2 days Time 50 minutes all questions were answered her - Subjective: Patient is sleepy and drowsy. Probable excess narcotic. No complaints of chest pain nausea vomiting or shortness of breath. She is alert and can be aroused easily. Her speech is slurred but there is no focal findings Objective: Vital Signs Temp Pulse Resp BP Pulse Ox 36.4 C 58 L 12 69/49 L 93 03/27/17 11:58 03/27/17 11:58 03/27/17 11:58 03/27/17 11:58 03/27/17 11:58 Laboratory Results 03/27/17 03:58 03/26/17 03/27/17 03/28/17 05:59 05:59 05:59 Intake Total 3429 Output Total 1400 Balance 2028 PT 13.8 SEC (12.0-15.0) 03/27/17 03:58 INR 1.07 (0.83-1.16) 03/27/17 03:58 - Time Spent With Patient Time Spent with Patient: greater than 35 minutes Time Spent with Patient: Greater than 35 minutes spent on this patients care, greater than 50% of time spent counseling, educating, and coordinating care regarding the above mentioned plan. - Pending Discharge Pending Discharge Within 24 Hours: No Pending Discharge Within 48 Hours: Yes Pending Discharge Date: 03/29/17 Pending Discharge Time: 11:00 - Physical Exam Constitutional: other (Drowsy with slurred speech.) Eyes: PERRL, anicteric sclera Ears, Nose, Mouth, Throat: moist mucous membranes, hard of hearing Cardiovascular: regular rate and rhythym, no murmur, rub, or gallop, other ( Monitor showed normal sinus rhythm without significant ectopy.) Respiratory: no respiratory distress, no rales or rhonchi, clear to auscultation Gastrointestinal: normoactive bowel sounds, soft, non-tender abdomen, no palpable masses Genitourinary: no bladder fullness Skin: warm, other (Capillary refill is good no diaphoresis) Musculoskeletal: generalized weakness Neurologic: AAOx3, CN II-XII Intact, other (Patient has slurred speech and is drowsy but there are no focal findings) Psychiatric: interacting appropriately ICD10 Worksheet Patient Problems: Problems Problem Status Onset Bilateral swelling of feet Acute Chest pain Acute Elevated troponin Acute
[2017-03-27] MEDS ORDERED: APIXABAN 5 MG TAB PO SCH (15:00)
[2017-03-27] MEDS: APIXABAN 5 MG TAB PO SCH (16:24)
[2017-03-27] MEDS: ACETAMINOPHEN 325 MG TAB PO PRN ×2 (17:11→21:45)
--- NOTE | 2017-03-27 18:01 | GCON ---
[f rep st] CONSULTATION PULMONARY CONSULTATION REASON FOR CONSULTATION: Pulmonary embolism. HISTORY: The patient is a pleasant 66-year-old, who was admitted on 03/25 with substernal chest tejas n. CT angiogram of the chest documented small volume pulmonary embolic disease, subsegmental, in th e left lower lobe. She does have a history of coronary artery disease, and is status post stenting. She had cervical s pine surgery by Dr. Salinas 1 week prior to admission, and several days later fell with injuri es to both her ankles. Evaluation here by x-ray has shown bilateral fractures of the distal fibula. Her left lower extremity has been placed in a boot. Her right lower extremity is Ludwin wrapped. Ultrasound of the lower extremities have no evidence of deep venous thrombosis. However, a superfic ial thrombosis of the greater saphenous vein was found on the right. She does have a history of a right upper extremity thrombosis related to a PICC line a number years ago. The PICC line was in for treatment of Lyme disease. She apparently had have surgical interven tion for the clot, and was anticoagulated for approximately 6 months. She denies a family history o f thromboembolic disease. She has never been told she was hypercoagulable. At the current time, she is doing well. She denies significant shortness of breath. She is on low- flow oxygen. She has some residual pain in the ankles. She is, otherwise, doing well and discharge is being considered for tomorrow. PAST MEDICAL HISTORY: Remarkable for coronary artery disease, history of breast cancer with modifie d radical mastectomy in 1982. There is no evidence of disease. She also has a history of renal carolin l carcinoma, and is post left nephrectomy approximately 4 months ago. 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 She has other medical issues inclu de systemic hypertension, hyperlipidemia, and chronic pain. PAST SURGICAL HISTORY: Breast implants, partial left nephrectomy, lumbar and cervical spine surgery , right radical mastectomy, partial thyroidectomy, and knee surgery. 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 She is from [place]. She is current ly living with her daughter in the [place] area, and plans on staying here. She is a never smoker. Significant alcohol is negative. FAMILY HISTORY: Negative for thromboembolic disease. Positive for heart disease. REVIEW OF SYSTEMS: A 10-point review of systems is negative, except as mentioned above. PHYSICAL EXAMINATION: GENERAL: Reveals a pleasant woman who is sitting comfortably in a chair. Sh e is in no distress. Oxygen is in place at 2 L. VITAL SIGNS: Blood pressure is 80/54, heart rate 62, respiratory rate 12. She is afebrile. Saturations are 92%. HEENT: Unremarkable for lymphaden opathy or thyromegaly. There is no obvious jugular venous distention. CHEST: Reveals shallow insp iratory efforts. Initially with some bibasilar rales, right greater than left. With voluntary good deep breathing, her rales essentially resolved. There are no wheezes or rhonchi. HEART: Regular rate and rhythm. There are no significant murmurs, no gallops. P2 appears normal. ABDOMEN: Sligh tly overweight, otherwise normal/negative. EXTREMITIES: Reveal a boot on the left, and wrap on the right related to her lower leg/ankles. LABORATORY DATA: CT angiogram of the chest and lower extremity venous Doppler ultrasound is as outl ined above. White blood cell count is 7,900, hematocrit 33, platelets are normal. PT and PTT have been normal. Basic metabolic panel is within normal limits. TSH is elevated at 18. BNP is negative. Troponins are nonspecifically elevated. ASSESSMENT: 1. A small volume pulmonary embolic disease. This is likely related to a clot in either leg, howev er no deep vein thrombosis currently persists. She has been started on anticoagulation with Eliquis . She will need short-term anticoagulation, for 6-12 weeks. She does have a history of previous DV T related to a PICC line. This raises the possibility of a hypercoagulable condition. She does not recall ever getting hypercoagulability studies. These will need to be done at some point, however I usually choose to do these several weeks after anticoagulation has been stopped. 2. Status post fall with bilateral fibular fractures. She is partially immobilized. 3. History of other medical and orthopedic issues as outlined above, including recent cervical spin e surgery. PLAN: Eliquis will be continued. The duration for this will be determined as an outpatient, no les s than 6 weeks, probably 12. Hypercoagulability panel will be considered at the end of anticoagulat ion. Attention to intermittent deep breathing is encouraged. She has IS at home, and will start th is once she returns home. Oxygen may be needed. This is probably secondary to hypoventilatory issu es. She was on oxygen following surgery, and appears to need low flow oxygen now. This can be reas sessed as an outpatient. I will plan on seeing the patient tomorrow and following her intermittently as an outpatient. All o f the above was discussed with the patient. /[id number]/MODL
[2017-03-27] MEDS: clonazePAM 1 MG TAB PO PRN (21:48)
[2017-03-27] MEDS ORDERED: diphenhydrAMINE 25 MG CAP PO PRN (22:09)
[2017-03-28 04:54] LABS: INR 1.18 (0.83-1.16)
[2017-03-28] MEDS: SENNOSIDES/DOCUSATE SODIUM TAB PO SCH (09:59)
[2017-03-28] MEDS: APIXABAN 5 MG TAB PO SCH (09:59)
[2017-03-28] MEDS: THYROID 60 MG TAB PO SCH (10:00)
[2017-03-28] MEDS: ATORVASTATIN CALCIUM 20 MG TAB PO SCH (10:01)
[2017-03-28] MEDS: FLUoxetine 20 MG CAP PO SCH (10:01)
[2017-03-28] MEDS: GABAPENTIN 300 MG CAP PO SCH (10:01)
[2017-03-28 10:08] VITALS: PULSE 71; RESP 14; TEMP 98.9; O2SAT 93
[2017-03-28] MEDS: NEBIVOLOL HCL 5 MG TAB PO SCH (10:16)
[2017-03-28] MEDS: ACETAMINOPHEN 325 MG TAB PO PRN (10:16)
[2017-03-28] MEDS: HYDROmorphONE/DILAUDID 2 MG TAB PO PRN (12:39)
[2017-03-28] MEDS: LOSARTAN POTASSIUM 50 MG TAB PO SCH (12:49)
[2017-03-28 12:51] VITALS: BP 106/63
--- NOTE | 2017-03-28 14:12 | PDHOMEO2F ---
Home Oxygen Face to Face Home Orders: I certify that a physician or a nurse practitioner or physician's ict sales assistant has had a judj-hr-lmhe encounter with this patient on the date of this order due to the diagnosis listed, which relates to the primary reason the patient requires home oxygen. Alternative treatments have been tried, or considered, and deemed ineffective. It is anticipated that supplemental oxygen will result in improvement with treatment. Home oxygen qualifying diagnosis: Pulmonary Embolus SpO2 on room air (%): 77 Frequency of home oxygen needed: continuous Home oxygen liters per minute: 2 Home oxygen delivery device: nasal cannula Concentrator: Yes E-tanks for mobility and back up: No I certify that, based on these findings, the home oxygen is medically necessary for this patient for the following length of time. Length of time home oxygen needed: 3 months
--- NOTE | 2017-03-28 14:28 | PDIAF ---
- Diagnosis Diagnosis: Laminectomy, bilat fibular fractures Code Status: Full Code - Medication Management Discharge Medications: Medications to Continue on Transfer Atorvastatin Calcium [Lipitor 20 mg (*)] 20 mg PO DAILY 01/29/17 [Last Taken ] Tizanidine HCl 4 mg PO QID 01/29/17 [Last Taken 03/23/17] Zolpidem Tartrate [Ambien 10 mg] 5 - 10 mg PO HS PRN 01/29/17 [Last Taken 5MG] clonazePAM [klonoPIN (*)] 1 mg PO TID PRN 01/29/17 [Last Taken 03/24/17 21:00] FLUoxetine [Prozac 20 MG (*)] 20 mg PO DAILY 03/25/17 [Last Taken 03/25/17] Gabapentin [Neurontin 300 MG (*)] 300 mg PO TID 03/25/17 [Last Taken 03/24/17 09 :00] HYDROmorphone HCL [Dilaudid 2 mg (*)] 2 - 4 mg PO Q6HRS PRN 03/25/17 [Last Taken 03/24/17] Herbals/Supplements -Info Only 1 ea PO DAILY 03/25/17 [Last Taken Unknown] Nitroglycerin [Nitrostat 0.4 mg (*)] 0.4 mg SL Q5M PRN 03/25/17 [Last Taken 21:00] Thyroid [Rand Thyroid 60 MG (*)] 120 mg PO DAILY10 03/25/17 [Last Taken ] Nebivolol HCl [Bystolic] 20 mg PO DAILY #20 tablet 03/27/17 [Last Taken Unknown] Apixaban [Eliquis] 5 mg PO BID 30 Days 03/28/17 [Last Taken Unknown] HYDROmorphone HCL [Dilaudid 2 mg (*)] 2 - 4 mg PO Q6HRS PRN #30 tab 03/28/17 [ Last Taken Unknown] Discharge Medications: Refer to the Discharge Home Medication list for PRN reason. - Orders Services needed: Home Care, Registered Nurse, Physical Therapy, Occupational Therapy Home Care Face to Face: I certify that this patient was under my care and that I had the required coql-ra-pbow encounter meeting the encounter requirements on the discharge day. My findings support the fact that the patient is homebound as defined in CMS Chapter 7 Medicare Benefits Manual 30.1.1, The condition of the patient is such that there exists a normal inability to leave home and consequently, leaving home would require a considerable and taxing effort. Diet Recommendation: no restrictions on diet Diet Texture: Regular Texture Diet - Follow Up Care Current Providers and Referrals: Justine Bernard NP [Primary Care Provider] - As per Instructions Dionicio Kwan MD [Medical Doctor] - Sylwia Naik MD [Medical Doctor] - Gaurav Rayo MD [Medical Doctor] -
--- NOTE | 2017-03-28 15:38 | SOAPPROG ---
SOAP Progress Note Assessment/Plan: Assessment: Small volume pulmonary embolism. Presumably secondary to a lower extremity source related to her recent fall and bilateral ankle fractures. She has a history of DVT related to a PICC line in the past. Ultrasound lower extremities showed only superficial clot on the right. Hypoxemia. She is mildly hypoxemic, especially when sleeping. Following her recent neck surgery she was sent home with oxygen but this apparently was not appropriately delivered. She needs a concentrator at home for nocturnal use. Her supplier is [employer]. Recent neck surgery History of other medical and previous surgical issues as outlined in my consultation. Plan: The patient will be discharged on Eliquis, starting out twice daily then transition to q.day dosage. I will see her back in about 3 weeks. Her anticipated duration of anticoagulation will be 6-12 weeks. All the above was discussed with the patient and the hospitalist. Subjective: Doing well. Denies significant shortness of breath. No chest pain. Off of oxygen during the day. No cough, no hemoptysis Objective: Vital Signs Temp Pulse Resp BP Pulse Ox 37.2 C 71 14 106/63 93 03/28/17 08:00 03/28/17 08:00 03/28/17 08:00 03/28/17 12:49 03/28/17 08:00 Laboratory Results 03/27/17 03:58 03/27/17 03/28/17 03/29/17 05:59 05:59 05:59 Intake Total 3429 2350 480 Output Total 1400 1450 1000 Balance 2029 900 -520 PT 15.0 SEC (12.0-15.0) 03/28/17 04:06 INR 1.18 (0.83-1.16) H 03/28/17 04:06 Physical Exam - Physical Exam General Appearance: alert, no apparent distress EENT: other (On room air, low 90s by report at rest sitting up) Neck: normal inspection Respiratory: decreased breath sounds (At bases, rales at bases which mostly clear after a few deep breaths) Cardiac/Chest: regular rate, rhythm Abdomen: normal bowel sounds, non-tender, soft Skin: normal color, warm/dry Extremities: other (With left leg in boot, right ankle wrapped.) Neuro/Psych: no motor/sensory deficits, No cognition abnormalities ICD10 Worksheet Patient Problems: Problems Problem Status Onset Chest pain Acute Bilateral swelling of feet Acute Elevated troponin Acute
--- NOTE | 2017-03-28 20:07 | GDS ---
[f rep st] DISCHARGE SUMMARY ALL DIAGNOSES: 1. Acute pulmonary embolus. 2. Chest pain. 3. Acute bilateral fibular fractures. 4. Coronary artery disease, status post remote stenting. 5. Peripheral edema. 6. Essential hypertension. 7. Bilateral lower extremity pain. 8. Status post cervical laminectomy by Neurosurgery 1 week prior to arrival. 9. Bilateral hearing loss. 10. Hypothyroid. 11. Status post breast carcinoma and mastectomy in 1982. 12. Renal cell carcinoma, status post partial left nephrectomy in 2017. 13. Hyperlipidemia. 14. Chronic pain on continuous narcotics. HOSPITAL COURSE: This is a 66-year-old female, admitted with chest pain. Workup revealed a pulmonary embolus. She had undergone a cervical laminectomy 1 week prior. Anticoagulation was discussed with Neurosurgery, Dr. Campos, who felt as though she is safe for anticoagulation. This was instituted initially with heparin, transitioned to Eliquis on discharge. She has been given a prescription of this, including instructions on the appropriate dose. She will follow up with Dr. Kwan for ongoing outpatient management of her pulmonary embolus. He plans 6 weeks to 3 months total. Her bilateral lower extremities were noted to be swollen. DVT was negative. X-ray did show a fibular fracture. Dr. Naik reviewed her films and felt as though she was okay for weightbearing. She should wear a boot on the left leg and an Ludwin bandage on the right for comfort. She will follow up with either Dr. Naik or Dr. Rayo as an outpatient for ongoing management of this. Her cervical laminectomy was stable. Dr. Campos paid her a social visit as an inpatient. She will follow up with him for ongoing management. She has been prescribed a short course of Dilaudid for postoperative pain. She does have essential hypertension. However, her blood pressures were borderline low here. She has been discharged on only a single agent, Bystolic, holding amlodipine and losartan on discharge. These may need to be restarted at some point. I recommended that she go to a SNF on discharge given her current disability, however she refused and was discharged home with home care. BILLING: I spent more than 30 minutes on the day of discharge coordinating care. /[id number]/MODL MTDD
== END 2017-03-28 16:22 | disposition home health service (06) | DRG 176 ==
LOC: F2W 13:50 → OBSVTOIN 03-26 16:37
PROVIDERS: ADMIT Internal Medicine Pulmonary Disease; ATTEND Internal Medicine Pulmonary Disease
DX: I26.99 Other pulmonary embolism without acute cor pulmonale (principal); S89.391A Other physeal fracture of lower end of right fibula, initial encounter for closed fracture; S89.392A Other physeal fracture of lower end of left fibula, initial encounter for closed fracture; I82.811 Embolism and thrombosis of superficial veins of right lower extremity; M50.90 Cervical disc disorder, unspecified, unspecified cervical region; Z98.1 Arthrodesis status; I25.10 Atherosclerotic heart disease of native coronary artery without angina pectoris; W10.9XXA Fall (on) (from) unspecified stairs and steps, initial encounter; I95.2 Hypotension due to drugs; T40.605A Adverse effect of unspecified narcotics, initial encounter; I10 Essential (primary) hypertension; H91.93 Unspecified hearing loss, bilateral; E03.9 Hypothyroidism, unspecified; E78.5 Hyperlipidemia, unspecified; R09.02 Hypoxemia; G89.29 Other chronic pain; I25.2 Old myocardial infarction; R60.9 Edema, unspecified; Z96.21 Cochlear implant status; Z95.5 Presence of coronary angioplasty implant and graft; Z85.3 Personal history of malignant neoplasm of breast; Z79.891 Long term (current) use of opiate analgesic; Z90.5 Acquired absence of kidney; Z85.528 Personal history of other malignant neoplasm of kidney; Z86.718 Personal history of other venous thrombosis and embolism
CPT/HCPCS: 85520-90; 97116-GP; 97162-GP; 97166-GO; 97530-GP; 97760-GP; G0378; J1170; J1644; J1650; Q9967

== ENCOUNTER → 2017-04-16 | Outpatient (CLI) | payer OTHER | LOC: BMCIMAGING 13:26 | PROVIDERS: ATTEND Podiatrist Foot & Ankle Surgery | DX: S89.391D Other physeal fracture of lower end of right fibula, subsequent encounter for fracture with routine healing (principal); S89.392D Other physeal fracture of lower end of left fibula, subsequent encounter for fracture with routine healing ==

== ENCOUNTER → 2017-05-21 | Outpatient (CLI) | payer OTHER | LOC: BMCIMAGING 09:57 | PROVIDERS: ATTEND Podiatrist Foot & Ankle Surgery | DX: S82.431D Displaced oblique fracture of shaft of right fibula, subsequent encounter for closed fracture with routine healing (principal); S82.432D Displaced oblique fracture of shaft of left fibula, subsequent encounter for closed fracture with routine healing ==

== ENCOUNTER → 2017-06-15 | Outpatient (CLI) | payer OTHER | LOC: FIMAGING 10:11 | PROVIDERS: ATTEND Podiatrist Foot & Ankle Surgery | DX: Z09 Encounter for follow-up examination after completed treatment for conditions other than malignant neoplasm (principal); Z98.1 Arthrodesis status; S82.402K Unspecified fracture of shaft of left fibula, subsequent encounter for closed fracture with nonunion; M77.32 Calcaneal spur, left foot ==

== ENCOUNTER 2017-07-11 17:13 | Emergency (ER) | payer OTHER ==
[2017-07-11 17:20] VITALS: RESP 18
[2017-07-11] MEDS ORDERED: BENZONATATE 100 MG CAP PO ONE (17:39)
--- NOTE | 2017-07-11 17:45 | EDPHY ---
H & P Time Seen by Provider: 07/11/17 17:22 HPI/ROS: HPI Chest pressure, cough. 67-year-old female by private vehicle. This patient has a history of coronary artery disease as well as pulmonary embolism. She last had a stent placed in 2012. She was diagnosed with a pulmonary embolism in March of this year. She has been on Eliquis since that time. She reports having a persistent dry nonproductive cough for the last 2 weeks. She reports that last night she felt feverish and had some chills as well. She reports over the last couple of days she has had chest tightness which has been at a low level and associated with her cough. She denies anginal equivalent pain. ROS: Constitutional: No fever, no chills. No weakness. Eyes: No discharge. No changes in vision. ENT: No sore throat. No nasal congestion or rhinorrhea. Respiratory: As above. No shortness of breath. Cardiac: As above, no palpitations. Gastrointestinal: No abdominal pain, no vomiting, no diarrhea. Genitourinary: No hematuria. No dysuria or increased frequency with urination. Musculoskeletal: No back pain. No neck pain. No myalgias or arthralgias. Skin: No rashes. Neurological: No headache. No focal weakness or altered sensation. Past medical history: Kidney cancer, breast cancer, left mastectomy, thyroidectomy, cochlear implant, coronary artery disease with stents placed, pulmonary embolism on anticoagulation, cervical fusion, lumbar fusion, opiate intolerance, sepsis. Social history: Nonsmoker. Here by herself. Denies alcohol. Physical Exam: General Appearance: Alert, no distress. Intermittent dry cough. This patient is responding to questions appropriately and in full sentences. This patient appears well-hydrated and well-nourished. Eyes: Pupils equal and round no pallor or injection. No lid edema, erythema or injection. Respiratory: There are no retractions, lungs are clear to auscultation with good air movement bilaterally. Cardiovascular: Regular rate and rhythm. No murmur appreciated. Gastrointestinal: Abdomen is soft and nontender, no masses, bowel sounds normal. No focal tenderness at McBurney's point. No Johansen sign. Neurological: Motor sensory function is grossly intact. Cranial nerves are normal. Gait is normal. Skin: Warm and dry, no rashes. Musculoskeletal: Neck is supple and nontender. Extremities are symmetrical. All joints range without pain or impingement. Psychiatric: No agitation. No depression. Database: EKG: EKG time is 6:02 p.m.; EKG shows a narrow complex normal sinus rhythm with a ventricular rate of 52. The CO, QRS, QT intervals are within normal limits. There are no ST-T wave changes indicative of ischemic or injury pattern. No evidence of right heart strain. Interpreted by me. Imaging: Chest x-ray PA and lateral; the cardiac mediastinal silhouette is unremarkable. No evidence of infiltrate or pneumothorax. No acute cardiopulmonary disease process noted. Interpreted by me. Procedures: Emergency department course: IV was placed. She was placed on a monitor. She was given 200 mg Tessalon Perle. EKG obtained and reviewed by myself. Vital signs reviewed and are unremarkable. The patient is afebrile. 7:00 p.m., patient re-evaluated. Resting comfortably at this time. Results of EKG, chest x-ray and blood work discussed with her. She felt better after Tessalon parole. Her workup has been reassuring. She feels comfortable going home and I feel she is safe for discharge. Plan will be to prescribe her Tessalon Perle for her cough. She was started on azithromycin in the emergency department at 500 mg. She will get a prescription for the remaining medication. Etiology of bronchitis is likely viral. She is concerned about a developing pneumonia. I will also prescribe her a albuterol inhaler for her cough. I recommended using NyQuil at night for a decongestant and to help her sleep as well. Return to emergency department precautions discussed in detail with her. All of her questions were answered. She was discharged in good condition. Differential Diagnosis: The differential diagnosis on this patient includes but is not limited to bronchitis, pneumonia, acute coronary syndrome. This represents a partial list of diagnoses considered. These considerations are based on history, physical exam, past history, reassessment and diagnostic testing. Smoking Status: Never smoked Constitutional: Initial Vital Signs Temperature (C) 37 C 07/11/17 17:17 Heart Rate 70 07/11/17 17:17 Respiratory Rate 18 07/11/17 17:17 Blood Pressure 136/103 H 07/11/17 17:17 O2 Sat (%) 94 07/11/17 17:17 O2 Delivery Mode Nasal Cannula O2 (L/minute) 2 Allergies/Adverse Reactions: No Known Allergies Allergy (Verified 07/11/17 17:16) Home Medications: Medication Instructions Recorded Atorvastatin Calcium [Lipitor 20 20 mg PO DAILY 01/29/17 mg (*)] Tizanidine HCl 4 mg PO QID 01/29/17 Zolpidem Tartrate [Ambien 10 mg] 5 - 10 mg PO HS PRN 01/29/17 clonazePAM [klonoPIN (*)] 1 mg PO TID PRN 01/29/17 FLUoxetine [Prozac 20 MG (*)] 20 mg PO DAILY 03/25/17 Gabapentin [Neurontin 300 MG (*)] 300 mg PO TID 03/25/17 Herbals/Supplements -Info Only 1 ea PO DAILY 03/25/17 Nitroglycerin [Nitrostat 0.4 mg 0.4 mg SL Q5M PRN 03/25/17 (*)] Thyroid [[place] Thyroid 60 MG (*)] 120 mg PO DAILY10 03/25/17 Apixaban [Eliquis] 5 mg PO BID 30 Days tab 03/28/17 Nebivolol HCl [Bystolic] 20 mg PO DAILY #30 tablet 03/28/17 Amlodipine Besylate 07/11/17 Azithromycin [Zithromax] 250 mg PO DAILY #6 tab 07/11/17 Benzonatate [Tessalon Pearles] 100 mg PO TID #12 cap 07/11/17 Lovastatin 07/11/17 Medical Decision Making - Diagnostics Imaging Results: Imaging Impressions Chest X-Ray 07/11/17 17:27 Impression: Negative chest.. - Data Points Laboratory Results: Laboratory Results 07/11/17 17:50 07/11/17 17:50 07/11/17 07/11/17 17:50 17:50 WBC 8.67 10^3/uL 10^3/uL (3.80-9.50) RBC 4.60 10^6/uL 10^6/uL (4.18-5.33) Hgb 13.9 g/dL g/dL (12.6-16.3) Hct 41.3 % % (38.0-47.0) MCV 89.8 fL fL (81.5-99.8) MCH 30.2 pg pg (27.9-34.1) MCHC 33.7 g/dL g/dL (32.4-36.7) RDW 14.4 % % (11.5-15.2) Plt Count 297 10^3/uL 10^3/uL (150-400) MPV 9.7 fL fL (8.7-11.7) Neut % (Auto) 63.6 % % (39.3-74.2) Lymph % (Auto) 23.9 % % (15.0-45.0) O'Brien % (Auto) 9.3 % % (4.5-13.0) Eos % (Auto) 2.2 % % (0.6-7.6) Baso % (Auto) 0.7 % % (0.3-1.7) Nucleat RBC Rel Count 0.0 % % (0.0-0.2) Absolute Neuts (auto) 5.51 10^3/uL 10^3/uL (1.70-6.50) Absolute Lymphs (auto) 2.07 10^3/uL 10^3/uL (1.00-3.00) Absolute Monos (auto) 0.81 10^3/uL H 10^3/uL (0.30-0.80) Absolute Eos (auto) 0.19 10^3/uL 10^3/uL (0.03-0.40) Absolute Basos (auto) 0.06 10^3/uL 10^3/uL (0.02-0.10) Absolute Nucleated RBC 0.00 10^3/uL 10^3/uL (0-0.01) Immature Gran % 0.3 % % (0.0-1.1) Immature Gran # 0.03 10^3/uL 10^3/uL (0.00-0.10) Sodium 144 mEq/L mEq/L (134-144) Potassium 4.0 mEq/L mEq/L (3.5-5.2) Chloride 106 mEq/L mEq/L (97-110) Carbon Dioxide 24 mEq/l mEq/l (22-31) Anion Gap 14 mEq/L mEq/L (8-16) BUN 19 mg/dL mg/dL (7-23) Creatinine 0.8 mg/dL mg/dL (0.6-1.0) Estimated GFR > 60 Glucose 106 mg/dL H mg/dL (70-100) Calcium 10.2 mg/dL mg/dL (8.5-10.4) Troponin I < 0.012 ng/mL ng/mL (0.000-0.034) NT-Pro-B Natriuret Pep 306 pg/mL H pg/mL (0-125) Medications Given: Discontinued Medications Albuterol Sulfate (Proventil Inh Prepack) 1 mdi TAKEHOME EDNOW ONE Stop: 07/11/17 19:00 Last Admin: 07/11/17 19:05 Dose: 1 mdi Azithromycin (Zithromax) 500 mg PO EDNOW ONE PRN Reason: Protocol Stop: 07/11/17 19:00 Last Admin: 07/11/17 19:05 Dose: 500 mg Benzonatate (Tessalon Pearles) 200 mg PO EDNOW ONE Stop: 07/11/17 17:40 Last Admin: 07/11/17 18:21 Dose: 200 mg Departure - Departure Disposition: Home, Routine, Self-Care Clinical Impression: Cough, Bronchitis Condition: Good Instructions: Benzonatate (By mouth), Albuterol (By breathing), Azithromycin ( By mouth), Acute Bronchitis (ED) Additional Instructions: Read and follow provided instructions. Follow-up with your primary care physician in 1-2 days for re-evaluation. Take medication as prescribed through entire course of treatment. Albuterol meter dose inhaler: 1-2 puffs every 2-4 hours as needed for cough and shortness of breath. Purchase NyQuil at the pharmacy. Take at night as directed to help you sleep and for decongestant. Return to the emergency department for worsening symptoms, specifically chest pain, difficulty breathing, high fever or other serious concerns. Referrals: Justine Bernard FARM OWNER OPERATOR [Primary Care Provider] - As per Instructions Prescriptions: Azithromycin [Zithromax] 250 mg PO DAILY #6 tab Benzonatate [Tessalon Pearles] 100 mg PO TID #12 cap
[2017-07-11 17:59] LABS: % IMMATURE GRANULYOCYTES 0.3 % (0.0-1.1); ABSOLUTE IMMATURE GRANULOCYTES 0.03 10^3/uL (0.00-0.10); ADD DIFF? NO; ADD MORPH? NO; ADD SCAN? NO; ATYPICAL LYMPHOCYTE FLAG 10 (0-99); FRAGMENT RBC FLAG 0 (0-99); HEMATOCRIT 41.3 % (38.0-47.0); HEMOGLOBIN 13.9 g/dL (12.6-16.3); LEFT SHIFT FLG 0 (0-99); LIPEMIA HEMOLYSIS FLAG 80 (0-99); MEAN CELL HEMOGLOBIN 30.2 pg (27.9-34.1); MEAN CELL HEMOGLOBIN CONCENTR. 33.7 g/dL (32.4-36.7); MEAN CELL VOLUME 89.8 fL (81.5-99.8); MEAN PLATELET VOLUME 9.7 fL (8.7-11.7); PLATELET CLUMPS FLAG 20 (0-99); PLATELET COUNT 297 10^3/uL (150-400); RED CELL DISTRIBUTION WIDTH 14.4 % (11.5-15.2)
--- NOTE | 2017-07-11 18:05 | CPEKG ---
Heart Rate: 52 RR Interval: 1154 P-R Interval: 184 QRSD Interval: 86 QT Interval: 428 QTC Interval: 398 P Bernard: 40 QRS Bernard: 53 T Wave Bernard: 65 EKG Severity - NORMAL ECG - EKG Impression: SINUS RHYTHM Electronically Signed By: Jose Andrade 11-Jul-2017 20:35:32
[2017-07-11 18:18] LABS: ANION GAP 14 mEq/L (8-16); CALCIUM 10.2 mg/dL (8.5-10.4); CARBON DIOXIDE 24 mEq/l (22-31); CHLORIDE 106 mEq/L (97-110); CREATININE 0.8 mg/dL (0.6-1.0); GLOMERULAR FILTRATION RATE > 60; GLUCOSE 106 mg/dL (70-100); SODIUM 144 mEq/L (134-144)
[2017-07-11 18:46] LABS: TROPONIN I < 0.012 ng/mL (0.000-0.034)
[2017-07-11] MEDS ORDERED: AZITHROMYCIN 250 MG TAB PO ONE (18:59)
[2017-07-11] MEDS ORDERED: ALBUTEROL INH PREPACK MDI TAKEHOME ONE (18:59)
[2017-07-11 19:10] VITALS: BP 137/80; PULSE 95; TEMP 98.4; O2SAT 94
== END 2017-07-11 19:16 | disposition home or self-care (01) ==
DX: J20.9 Acute bronchitis, unspecified (principal); I25.10 Atherosclerotic heart disease of native coronary artery without angina pectoris; Z85.528 Personal history of other malignant neoplasm of kidney; Z85.3 Personal history of malignant neoplasm of breast; Z79.82 Long term (current) use of aspirin

== ENCOUNTER 2017-11-29 15:59 | Inpatient (IN) | payer BC, OTHER ==
--- NOTE | 2017-11-29 16:13 | EDPHY ---
H & P Stated Complaint: FEVER N/V ABD PAINFREQ URINATION /HX SEPSIS IN PAST Time Seen by Provider: 11/29/17 16:12 - Personal History Current Tetanus/Diphtheria Vaccine: Unsure - Medical/Surgical History Hx Asthma: No Hx Chronic Respiratory Disease: No Hx Diabetes: No Hx Cardiac Disease: Yes Hx Renal Disease: No Hx Cirrhosis: No Hx Alcoholism: No Hx HIV/AIDS: No Hx Splenectomy or Spleen Trauma: No Other PMH: kidney cancer. heart stents. breast cancer, left masectomy, thyroidectomy, choclear implant, cervical fusion, lumbar fusion, sepsis, opoid tolerance - Social History Smoking Status: Never smoked Constitutional: Initial Vital Signs Temperature (C) 39 C H 11/29/17 16:09 Heart Rate 83 11/29/17 16:09 Respiratory Rate 19 11/29/17 16:09 Blood Pressure 116/84 H 11/29/17 16:09 O2 Sat (%) 93 11/29/17 16:09 O2 Delivery Mode Nasal Cannula O2 (L/minute) 2 Allergies/Adverse Reactions: No Known Allergies Allergy (Verified 11/29/17 16:07) Home Medications: Medication Instructions Recorded Apixaban [Eliquis] 5 mg PO BID 11/29/17 Atorvastatin Calcium [Lipitor 20 20 mg PO HS 11/29/17 mg (*)] Buprenorphine 1 patch TP TU@0800 11/29/17 Bupropion HCl [Bupropion HCl Sr] 100 mg PO BID 11/29/17 Diazepam [Valium 10 MG (*)] 10 mg PO TID PRN 11/29/17 FLUoxetine [Prozac 20 MG (*)] 40 mg PO DAILY 11/29/17 Nebivolol HCl [Bystolic] 20 mg PO DAILY 11/29/17 Sennosides [Senokot 8.6mg (OTC)] 2 each PO DAILY 11/29/17 Thyroid,Pork [Thyroid] 120 mg PO DAILY 11/29/17 Tizanidine HCl 4 mg PO QID 11/29/17 Zolpidem Tartrate [Zolpidem 5 - 10 mg PO HS PRN 11/29/17 Tartrate] oxyCODONE HCL [Oxycontin] 20 mg PO Q8 11/29/17 Medical Decision Making - Diagnostics Imaging Results: Imaging Impressions Abdomen CT 11/29/17 16:54 Impression: 1. Three areas of segmental right renal pyelonephritis. If any old CT scans could be made available, we would be happy to review them to assess for interval change. A new right lower pole mass could potentially be present, and follow up postcontrast CT is recommended after appropriate therapy for the patient's presumed infection. Message was left with Stephanie DAVIS for Vinh Bird MD, at 11/29/2017 17: 41 General information for patients regarding this examination can be found at [email or web address]. If you have questions or comments about this report, please contact me at [phone] (hospital) or [phone] (cell). Imaging: Discussed imaging studies w/ tube laser operator Radiologist, I viewed and interpreted images myself ED Course/Re-evaluation: CHIEF COMPLAINT: Abdominal pain, N/V HISTORY OF PRESENT ILLNESS: The patient is a 67 y/o female with a complex medical history complaining of abdominal pain for the last 5 days now associated with nausea and vomiting. Her medical history includes renal cell carcinoma post partial left nephrectomy, CAD post stenting x2, breast cancer post surgery, hypertension, and chronic pain. Her abdominal pain is primarily located along her right side and extends into her right flank. She's had associated loss of appetite and has only been drinking water and harsh anand since symptoms began. She vomited once today. Her symptoms feel the same as a prior episode of urosepsis following kidney stone removal. She denies urinary symptoms. REVIEW OF SYSTEMS: A 10 point review of systems was performed and is negative with the exception of the elements mentioned in the history of present illness. PHYSICAL EXAM: HR, BP, O2 Sat, RR. Temp noted General Appearance: Alert, well hydrated, appropriate, and non-toxic appearing. Head: Atraumatic without scalp tenderness or obvious injury Eyes: Pupils equal, round, reactive to light and accommodation, EOMI, no trauma , no injection. Nose: Atraumatic, no rhinorrhea, clear. Throat: Mucus membranes moist. Neck: Supple Respiratory: No retractions, no distress, no wheezes, and no accessory muscle use. Lungs are clear to auscultation bilaterally. Cardiovascular: Regular rate and rhythm, no murmurs, rubs, or gallops. Good capillary refill all extremities. Gastrointestinal: Abdomen is soft, diffusely tender worse on right side, non- distended, no masses, no rebound, no guarding, no peritoneal signs. Musculoskeletal: Normal active ROM of all extremities, atraumatic. Right CVA tenderness. Neurological: Alert, appropriate, and interactive. The patient has non-focal cranial nerves, motor, sensory, and cerebellar exam. Skin: No rashes, good turgor, no nodules on palpation. Past medical history: Renal cell carcinoma, CAD, hypothyroidism, breast cancer post surgery, degenerative disc disease, hypertension, hyperlipidemia, chronic pain Past surgical history: Cardiac stents x2, appendectomy, modified radical mastectomy 1982, partial left nephrectomy October 2016, lumbar fusion, cervical surgery by Dr. Salinas, failed silicon implant requiring a TRAM flap, bilateral knee surgery, breast implants, partial thyroidectomy Family history: Noncontributory Social history: No tobacco. Occasional alcohol. Retired. Prior medical records reviewed including admission 03/25/17 for chest pain and edema. DIAGNOSTICS/PROCEDURES/CRITICAL CARE TIME: Abdominal CT: Pyelonephritis, right DIFFERENTIAL DIAGNOSIS: The differential diagnosis for the patient's abdominal pain included but was not limited to ovarian cyst, pelvic inflammatory disease, ovarian torsion, urinary tract infection, ectopic , cholecystitis, and appendicitis. MEDICAL DECISION MAKING: This is a 67 y/o female with a complex medical history including renal cell carcinoma with partial left nephrectomy and prior episode of urosepsis who presents with a 5-day history of diffuse abdominal pain and right flank pain with associated loss of appetite and now vomiting. She is febrile, but does not meet sepsis criteria. She has abdominal tenderness and right flank tenderness on exam. Plan for IV, labs, UA, abdominal CT, and symptom management. 1L IV NS, 1mg IV Dilaudid, 2mg IV Zofran ordered. UA indicates UTI. 2gm IV Ceftriaxone ordered. Abdominal CT pending. CT reveals pyelonephritis on the right side. 1800: Reevaluated patient and discussed findings. Recommended admission, which she agrees to. Additional 1mg IV Dilaudid ordered. Spoke with hospitalist service. Dr. Doran accepts admission. - Data Points Laboratory Results: Laboratory Results 11/29/17 16:25 11/29/17 16:25 11/29/17 11/29/17 11/29/17 16:25 16:25 16:25 WBC 13.77 10^3/uL H 10^3/uL (3.80-9.50) RBC 4.31 10^6/uL 10^6/uL (4.18-5.33) Hgb 13.1 g/dL g/dL (12.6-16.3) Hct 38.9 % % (38.0-47.0) MCV 90.3 fL fL (81.5-99.8) MCH 30.4 pg pg (27.9-34.1) MCHC 33.7 g/dL g/dL (32.4-36.7) RDW 12.6 % % (11.5-15.2) Plt Count 268 10^3/uL 10^3/uL (150-400) MPV 10.4 fL fL (8.7-11.7) Neut % (Auto) 77.9 % H % (39.3-74.2) Lymph % (Auto) 7.6 % L % (15.0-45.0) [place] % (Auto) 13.6 % H % (4.5-13.0) Eos % (Auto) 0.1 % L % (0.6-7.6) Baso % (Auto) 0.4 % % (0.3-1.7) Nucleat RBC Rel Count 0.0 % % (0.0-0.2) Absolute Neuts (auto) 10.75 10^3/uL H 10^3/uL (1.70-6.50) Absolute Lymphs (auto) 1.04 10^3/uL 10^3/uL (1.00-3.00) Absolute Monos (auto) 1.87 10^3/uL H 10^3/uL (0.30-0.80) Absolute Eos (auto) 0.01 10^3/uL L 10^3/uL (0.03-0.40) Absolute Basos (auto) 0.05 10^3/uL 10^3/uL (0.02-0.10) Absolute Nucleated RBC 0.00 10^3/uL 10^3/uL (0-0.01) Immature Gran % 0.4 % % (0.0-1.1) Immature Gran # 0.05 10^3/uL 10^3/uL (0.00-0.10) VBG Lactic Acid Sodium 135 mEq/L mEq/L (135-145) Potassium 3.7 mEq/L mEq/L (3.5-5.2) Chloride 99 mEq/L mEq/L (97-110) Carbon Dioxide 24 mEq/l mEq/l (22-31) Anion Gap 12 mEq/L mEq/L (8-16) BUN 14 mg/dL mg/dL (7-23) Creatinine 0.9 mg/dL mg/dL (0.6-1.0) Estimated GFR > 60 Glucose 122 mg/dL H mg/dL (70-100) Calcium 9.3 mg/dL mg/dL (8.5-10.4) Total Bilirubin 0.7 mg/dL mg/dL (0.1-1.4) Conjugated Bilirubin 0.5 mg/dL mg/dL (0.0-0.5) Unconjugated Bilirubin 0.2 mg/dL mg/dL (0.0-1.1) AST 21 IU/L IU/L (14-46) ALT 31 IU/L IU/L (9-52) Alkaline Phosphatase 100 IU/L IU/L (38-126) Total Protein 7.3 g/dL g/dL (6.3-8.2) Albumin 3.9 g/dL g/dL (3.5-5.0) Lipase 32 IU/L IU/L (23-300) Urine Color YELLOW Urine Appearance HAZY Urine pH 5.0 (5.0-7.5) Ur Specific [place] 1.017 (1.002-1.030) Urine Protein 2+ H (NEGATIVE) Urine Ketones NEGATIVE (NEGATIVE) Urine Blood 2+ H (NEGATIVE) Urine Nitrate NEGATIVE (NEGATIVE) Urine Bilirubin NEGATIVE (NEGATIVE) Urine Urobilinogen NEGATIVE EU EU (0.2-1.0) Ur Leukocyte Esterase 1+ H (NEGATIVE) Urine RBC 50-182 /hpf H /hpf (0-3) Urine WBC 25-50 /hpf H /hpf (0-3) Ur Epithelial Cells TRACE /lpf /lpf (NONE-1+) Urine Bacteria 1+ /hpf H /hpf (NONE SEEN) Urine Mucus TRACE /lpf /lpf (NONE-1+) Urine Glucose NEGATIVE (NEGATIVE) 11/29/17 16:25 WBC RBC Hgb Hct MCV MCH MCHC RDW Plt Count MPV Neut % (Auto) Lymph % (Auto) [place] % (Auto) Eos % (Auto) Baso % (Auto) Nucleat RBC Rel Count Absolute Neuts (auto) Absolute Lymphs (auto) Absolute Monos (auto) Absolute Eos (auto) Absolute Basos (auto) Absolute Nucleated RBC Immature Gran % Immature Gran # VBG Lactic Acid 1.4 mmol/L mmol/L (0.7-2.1) Sodium Potassium Chloride Carbon Dioxide Anion Gap BUN Creatinine Estimated GFR Glucose Calcium Total Bilirubin Conjugated Bilirubin Unconjugated Bilirubin AST ALT Alkaline Phosphatase Total Protein Albumin Lipase Urine Color Urine Appearance Urine pH Ur Specific [place] Urine Protein Urine Ketones Urine Blood Urine Nitrate Urine Bilirubin Urine Urobilinogen Ur Leukocyte Esterase Urine RBC Urine WBC Ur Epithelial Cells Urine Bacteria Urine Mucus Urine Glucose Medications Given: Hydromorphone/Sodium Chloride (Hydromorphone) 0.2 - 0.4 mg IVP Q4HRS PRN PRN Reason: Pain, Severe Unable to Take PO Stop: 12/09/17 20:01 Last Admin: 11/29/17 20:40 Dose: 0.4 mg Sodium Chloride (Ns) 1,000 mls @ 100 mls/hr IV CONT YUMIKO Stop: 05/28/18 20:14 Last Admin: 11/29/17 20:42 Dose: 1,000 mls Discontinued Medications Hydromorphone HCl (Dilaudid) 1 mg IVP EDNOW ONE Stop: 11/29/17 16:48 Last Admin: 11/29/17 16:52 Dose: 1 mg Hydromorphone HCl (Dilaudid) 1 mg IVP EDNOW ONE Stop: 11/29/17 18:17 Last Admin: 11/29/17 18:19 Dose: 1 mg Sodium Chloride (Ns) 1,000 mls @ 0 mls/hr IV EDNOW ONE; Wide Open PRN Reason: Protocol Stop: 11/29/17 16:48 Last Admin: 11/29/17 16:51 Dose: 1,000 mls Ceftriaxone Sodium 2 gm/ (Sterile Water) 20 mls @ 300 mls/hr IV EDNOW ONE PRN Reason: Protocol Stop: 11/29/17 17:48 Last Admin: 11/29/17 18:32 Dose: 20 mls Ondansetron HCl (Zofran) 4 mg IVP EDNOW ONE Stop: 11/29/17 16:48 Last Admin: 11/29/17 16:52 Dose: 4 mg Departure - Departure Disposition: [facility] Inpatient Acute Clinical Impression: Pyelonephritis Condition: Fair Instructions: Kidney Infection (ED) Referrals: Misa Koroma MD [Medical Doctor] - As per Instructions Report Scribed for: Vinh Bird Report Scribed by: Daisha Argueta Date of Report: 11/29/17 Time of Report: 16:59
[2017-11-29] MEDS ORDERED: ONDANSETRON 4 MG/2 ML VIAL IVP ONE (16:47)
[2017-11-29] MEDS ORDERED: NS 1,000 ML IV ONE (16:47)
[2017-11-29] MEDS ORDERED: HYDROmorphONE/DILAUDID 2 MG/ML INJ IVP ONE ×2 (16:47→18:16)
[2017-11-29 17:04] LABS: PLATELET COUNT 268 10^3/uL (150-400)
[2017-11-29] MEDS ORDERED: IOPAMIDOL (ISOVUE-300) 100 ML BTL ONE (17:17)
[2017-11-29] MEDS ORDERED: cefTRIAXone 2 GM in STERILE WATER INJ 20 ML IV ONE (17:45)
[2017-11-29] MEDS ORDERED: HYDROmorphONE/DILAUDID 2 MG/ML INJ ONE (18:17)
[2017-11-29] MEDS ORDERED: oxyCODONE IR 5 MG TAB PO PRN (20:02)
[2017-11-29] MEDS ORDERED: HYDROmorphone HCL/NS 0.5 MG/ML SYR IVP PRN (20:02)
[2017-11-29] MEDS ORDERED: PNEUMOC 13-VAL CONJ-DIP CRM/PF 0.5 ML SYR IM ONE (20:21)
[2017-11-29] MEDS: NS 1,000 ML IV SCH (20:42)
[2017-11-29] MEDS: ATORVASTATIN CALCIUM 20 MG TAB PO SCH (21:06)
[2017-11-29] MEDS: APIXABAN 5 MG TAB PO SCH (21:06)
[2017-11-29] MEDS: ZOLPIDEM TARTRATE 5 MG TAB PO PRN (21:37)
[2017-11-29] MEDS: buPROPion SR 100 MG TAB PO SCH (21:50)
[2017-11-29] MEDS: HYDROmorphONE/DILAUDID 2 MG/ML INJ IVP PRN (21:58)
--- NOTE | 2017-11-29 22:03 | GHP ---
[f rep st] HISTORY AND PHYSICAL DATE OF ADMISSION: 11/29/2017 CHIEF COMPLAINT: Nausea, vomiting, and right flank pain. HISTORY OF PRESENT ILLNESS: The patient is a pleasant 67-year-old female with a past medical history of coronary artery disease, status post PCI, and left-sided renal cell carcinoma, status post nephre ctomy. Also with significant right-sided hearing loss, who [facility] after experiencing right-sided flank pain. She states that over the past few weeks she has had some burning with urination as well. Her emergency room evaluation included a CT scan of her abdomen, which showed evidence of right-sided pyelonephritis. There was also concern expressed on the abdominal CT about the possibility of a new right lower pole mass. The patient tells me that she had consulted with a property management accountant recently who ordered a right-sided renal ultrasound, and this was reportedly unremarkable. The patient was given ceftriaxone 2 g intravenously to start treatment for right-sided pyelonephritis noted. Blood cultur es were obtained. PAST MEDICAL HISTORY: 1. Coronary artery disease, status post PCI in 2007 and 2010. 2. Pulmonary embolism. 3. Chronic hypoxic respiratory failure on nocturnal oxygen. 4. Hypertension. 5. Hypothyroidism. 6. Hyperlipidemia. 7. Renal cell carcinoma, status post left-sided nephrectomy. 8. Breast cancer, status post mastectomy in 1982. PAST SURGICAL HISTORY: 1. Cervical and lumbar spine surgeries. 2. Bilateral knee surgeries. 3. Breast implants. 4. Left partial nephrectomy in October of 2016. 5. Partial thyroidectomy. MEDICATIONS: This medication list is taken from her ambulatory orders. 1. Eliquis 5 mg twice a day for pulmonary embolism. 2. Atorvastatin 20 mg nightly. 3. Buprenorphine 7.5 mg patch every Wednesday. 4. Bupropion SR 100 mg twice a day. 5. Valium 10 mg 3 times a day as needed. 6. Prozac 40 mg daily. 7. Bystolic 20 mg daily. 8. OxyContin 20 mg every 8 hours. 9. Senokot 1 tab twice a day. 10. Pork thyroid 120 mg daily. 11. Tizanidine 4 mg 4 times a day. 12. Zolpidem 5-10 mg nightly. ALLERGIES: No known drug allergies. FAMILY HISTORY: Mother with heart disease. SOCIAL HISTORY: The patient lives part-time out of state and part-time in [place], where her daught er currently resides. She is a nonsmoker. 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 REVIEW OF SYSTEMS: CONSTITUTIONAL: Positive for fevers. No rigors appreciated. ENT: No recent up per respiratory illnesses. CARDIOVASCULAR: No complaints of chest pain, palpitations, or syncopal e pisodes. RESPIRATORY: No complaints of shortness of breath or pleuritic-type pains. GI: No diarrh ea or bloody stool. She has noted nausea, vomiting, and right-sided abdominal pain, more anteriorly than posteriorly. : Positive for dysuria. NEUROLOGIC: No complaints of headaches or focal weakn ess. HEMATOLOGIC: No history of any deep vein thrombosis, but positive for pulmonary emboli diagnose d in the summer of 2017. ENDOCRINE: No history of diabetes. She did have a history of hyperthyroid ism in the past. SKIN: No new skin rashes. MUSCULOSKELETAL: No focal joint pains. PHYSICAL EXAMINATION: VITAL SIGNS: Temperature 37.8, blood pressure 120/70, heart rate 79, respirat ions 18, saturating 97% on 2 L nasal cannula. GENERAL: Patient is awake, alert, conversant, able to provide a good history. Somewhat hard of hearing. HEENT: Extraocular movements intact. No sclera l icterus is noted. NECK: Supple. No adenopathy or thyroid enlargement appreciated. CHEST: Clear on auscultation. Normal respiratory effort. HEART: Regular. No murmurs. ABDOMEN: Tenderness wi th deep palpation in the right side of the abdomen. No elicited CVA tenderness. Normal bowel sounds . Nondistended. : No Antony catheter in place. EXTREMITIES: No significant pitting edema. MUSCU LOSKELETAL: No calf pain with palpation. NEUROLOGIC: Cranial nerves 2-12 appear grossly intact; 5/ 5 strength in extremities. LABORATORY DATA: White blood cell count is 13, hemoglobin 13, platelets 268. Sodium is 135, potassi um 3.7, chloride 99, bicarb 24, BUN 14, creatinine 0.9, glucose 122, AST 21, ALT 31, alkaline phospha tase 100, bilirubin is 0.7. Urinalysis shows 1+ leukocyte esterase, negative nitrite. IMAGING: CT abdomen: Right-sided pyelonephritis. ASSESSMENT AND PLAN: 1. Right-sided pyelonephritis. The patient does describe symptoms consistent with urinary tract inf ection over the prior weeks, but has been progressing in regard to her symptoms of right-sided abdomi nal pain associated with nausea and vomiting today. She has been started on ceftriaxone 2 g daily, w guillermo I will continue to await urine culture. Blood cultures have been sent off as well. 2. Right renal mass, possible. The patient states she had a recent right-sided renal ultrasound, wh ich reportedly did not show any concerns. I would recommend we consider repeat CT imaging after reso lution of her pyelonephritis. 3. Coronary artery disease. Continue current atorvastatin. Currently asymptomatic. 4. Hypertension, controlled. I will continue her Bystolic for now, but if low blood pressures overn ight, we may want to consider holding in the morning. 5. History of pulmonary embolism. Continue current Eliquis 5 mg twice a day. 6. Hyperlipidemia. Atorvastatin. 7. Hypothyroidism. Continue current thyroid supplementation. 8. Deep venous thrombosis prophylaxis. Continue Eliquis. DISPOSITION: Held under observation status. /[id number]/MODL
[2017-11-30] MEDS: HYDROmorphONE/DILAUDID 2 MG/ML INJ IVP PRN ×2 (00:57→04:56)
[2017-11-30 04:28] LABS: PLATELET COUNT 223 10^3/uL (150-400)
[2017-11-30] MEDS: NS 1,000 ML IV SCH ×5 (08:22→17:22)
[2017-11-30] MEDS ORDERED: NS 250 ML IV ONE (08:51)
[2017-11-30] MEDS ORDERED: ENOXAPARIN 40 MG/0.4 ML SYR SC SCH (09:00)
[2017-11-30] MEDS ORDERED: NEBIVOLOL HCL 5 MG TAB PO SCH (09:00)
[2017-11-30] MEDS: SENNOSIDES 1 TAB PO SCH (09:17)
[2017-11-30] MEDS: buPROPion SR 100 MG TAB PO SCH ×2 (09:17→21:49)
[2017-11-30] MEDS: FLUoxetine 20 MG CAP PO SCH (09:17)
[2017-11-30] MEDS: cefTRIAXone 2 GM in STERILE WATER INJ 20 ML IV SCH (09:17)
[2017-11-30] MEDS: APIXABAN 5 MG TAB PO SCH ×2 (09:17→21:49)
[2017-11-30] MEDS: BUPRENORPHINE TP SCH (09:18)
--- NOTE | 2017-11-30 09:19 | HOSPPROG ---
Hospitalist Progress Note Assessment/Plan: #Severe sepsis: due to pyelonephritis, bacteremia (leukocytosis, fever, urinary source). -aggressive IVFs, repeating lactate. IV Ceftriaxone #Gram-negative bacteremia: urinary source. Cont IV abx. #Hypotension: due to acute infection. Hold BB. Bolus IVFs #Flank pain: Toradol. Add H2 obie with Eliquis #Fever: plan as above #Chronic back pain and opioid dependency: cont muscle relaxers #CAD: s/p PCI #Pulmonary embolism: Eliquis #Chronic hypoxemic resp failure: stable #HTN: hold anti-hypertensives #HLD: not on statin #Diet: ADAT #DVT ppx: Lovenox Critical care time spent: 40 min bedside with pt, reviewing imaging/labs, coordinating tx plan. Subjective: right flank pain. Objective: Vital Signs Temp Pulse Resp BP Pulse Ox 36.5 C 62 19 91/60 L 95 11/30/17 08:18 11/30/17 08:34 11/30/17 08:18 11/30/17 08:34 11/30/17 08:18 Laboratory Results 11/30/17 04:01 11/30/17 04:01 11/29/17 11/30/17 12/01/17 05:59 05:59 05:59 Intake Total 250 1662 Output Total 100 100 Balance 150 1562 - Time Spent With Patient Time Spent with Patient: greater than 35 minutes Time Spent with Patient: Greater than 35 minutes spent on this patients care, greater than 50% of time spent counseling, educating, and coordinating care regarding the above mentioned plan. - Physical Exam Constitutional: other (ill-appearing. Lethargic) Eyes: PERRL Ears, Nose, Mouth, Throat: poor dentition, dry mucous membranes Cardiovascular: regular rate and rhythym Respiratory: no respiratory distress Gastrointestinal: normoactive bowel sounds, soft, non-tender abdomen Genitourinary: other (right suprapubic and flank pain with palpation) Skin: warm Musculoskeletal: full muscle strength Neurologic: AAOx3, CN II-XII Intact Psychiatric: interacting appropriately ICD10 Worksheet Patient Problems: Problems Problem Status Onset Pyelonephritis Acute Bilateral swelling of feet Acute Chest pain Acute Elevated troponin Acute
[2017-11-30] MEDS ORDERED: KETOROLAC 15 MG/1 ML SDV ONE (09:27)
[2017-11-30] MEDS: KETOROLAC 15 MG/1 ML SDV IVP SCH ×3 (09:33→18:27)
[2017-11-30] MEDS: FAMOTIDINE 20 MG TAB PO SCH (09:39)
[2017-11-30] MEDS: THYROID 60 MG TAB PO SCH (10:18)
--- NOTE | 2017-11-30 11:38 | ASMTCMCOM ---
CM Note CM Note Notes: Patient admitted for R flank pain. She has a hx of renal cell carcinoma and L nephrectomy. Upon examination, she was found to have R sided pyelonephritis. CT has been recommended when this resolves. PT/OT have been ordered. Patient is normally independent; I don't anticipate any d/c needs. Case Management available should they arise. Date Signed: 11/30/2017 11:37 AM Electronically Signed By:Anais Acosta RN
[2017-11-30] MEDS ORDERED: NS 500 ML IV ONE (12:10)
[2017-11-30] MEDS ORDERED: NS 1,000 ML IV ONE (14:43)
[2017-11-30] MEDS ORDERED: NOREPINEPHRINE BITARTRATE 4 MG in NS 500 ML IV SCH (15:00)
[2017-11-30] MEDS ORDERED: NOREPINEPHRINE/NS 500 ML IV SCH (15:00)
--- NOTE | 2017-11-30 15:32 | PDMN ---
Medical Necessity Medical necessity: [facility] [place] sepsis and other febrile illness A-3 days- severe sepsis due to pyelonephritis, bacteremia, req further IV fluids, IV abx, monitoring and tx > 2 midnights.
[2017-11-30] MEDS: DIAZEPAM 5 MG TAB PO PRN (16:09)
[2017-11-30] MEDS ORDERED: ALTEPLASE 2 MG VIAL IVP PRN (16:10)
[2017-11-30] MEDS ORDERED: LIDOCAINE 1% 300 MG/30 ML SDV ONE (16:37)
--- NOTE | 2017-11-30 18:36 | PDRADPN ---
Radiology Procedure Note Date of Procedure: 11/30/17 Radiologist: Pepito Green Anesthesia: Local (Specify) Pre-op Diagnosis: need pressors Post-op Diagnosis: same Indication: venous access Procedure: RUE PICC Finding(s): optimal position at 38cm via cephalic vein. Resistance at the cephalic arch c/w stenosis, but was able to cross. Inf/Abcess present in the surg proc area at time of surgery?: No EBL: Minimal Complications: none
[2017-11-30] MEDS: ATORVASTATIN CALCIUM 20 MG TAB PO SCH (21:49)
[2017-11-30] MEDS: oxyCODONE IR 5 MG TAB PO PRN (21:52)
[2017-11-30] MEDS: ACETAMINOPHEN 325 MG TAB PO PRN (21:52)
[2017-12-01] MEDS: ZOLPIDEM TARTRATE 5 MG TAB PO PRN ×2 (00:06→22:04)
[2017-12-01] MEDS: KETOROLAC 15 MG/1 ML SDV IVP SCH ×4 (00:06→17:46)
[2017-12-01] MEDS: NS 1,000 ML IV SCH (03:26)
[2017-12-01 04:34] LABS: PLATELET COUNT 208 10^3/uL (150-400)
[2017-12-01] MEDS: oxyCODONE IR 5 MG TAB PO PRN ×2 (07:58→22:08)
[2017-12-01] MEDS: DIAZEPAM 5 MG TAB PO PRN ×2 (07:58→22:05)
--- NOTE | 2017-12-01 08:36 | HOSPPROG ---
Hospitalist Progress Note Assessment/Plan: #Severe sepsis: due to pyelonephritis, bacteremia (leukocytosis, fever, urinary source). -resolved with aggressive IVFs, Lactate normal. IV Ceftriaxone #Klebsiella bacteremia: urinary source. Awaiting sensitivities. Appreciate ID consultation #Possible right renal pole mass: no definitive on CT. Will need repeat imaging once infection cleared #Hypotension: resolved with aggressive IVFs. Due to acute infection. Hold BB. #Flank pain: Toradol. Add H2 obie with Eliquis #Urinary retention: chronic opioids likely contributing; has had issues with this in past #Fever: plan as above #Leukocytosis: nearly resolved on abx #Chronic back pain and opioid dependency: cont muscle relaxers #CAD: s/p PCI #Pulmonary embolism: Eliquis #Chronic hypoxemic resp failure: stable #HTN: hold anti-hypertensives #HLD: not on statin #Diet: ADAT #DVT ppx: Lovenox Critical care time spent: 35 min bedside with pt, reviewing imaging/labs, coordinating tx plan. Subjective: mild nausea this morning. Right flank pain improved Objective: Vital Signs Temp Pulse Resp BP Pulse Ox 36.8 C 72 14 111/61 98 12/01/17 07:48 12/01/17 07:48 12/01/17 07:48 12/01/17 07:48 12/01/17 07:48 Laboratory Results 12/01/17 04:05 11/30/17 04:01 11/30/17 12/01/17 12/02/17 05:59 05:59 05:59 Intake Total 250 7194 Output Total 100 1851 Balance 150 5343 - Physical Exam Constitutional: other (less lethargic today) Eyes: PERRL Ears, Nose, Mouth, Throat: dry mucous membranes Cardiovascular: regular rate and rhythym, No edema Respiratory: no respiratory distress, reduced air movement, No expiratory wheeze , No inspiratory crackles Gastrointestinal: normoactive bowel sounds, soft, non-tender abdomen Genitourinary: other (right suprapubic pain with palpation) Skin: warm Musculoskeletal: full muscle strength Neurologic: AAOx3, CN II-XII Intact Psychiatric: interacting appropriately ICD10 Worksheet Patient Problems: Problems Problem Status Onset Pyelonephritis Acute Bilateral swelling of feet Acute Chest pain Acute Elevated troponin Acute
[2017-12-01] MEDS: FAMOTIDINE 20 MG TAB PO SCH (10:36)
[2017-12-01] MEDS: SENNOSIDES 1 TAB PO SCH (10:36)
[2017-12-01] MEDS: FLUoxetine 20 MG CAP PO SCH (10:36)
[2017-12-01] MEDS: APIXABAN 5 MG TAB PO SCH ×2 (10:36→21:59)
[2017-12-01] MEDS: buPROPion SR 100 MG TAB PO SCH ×3 (10:36→22:20)
[2017-12-01] MEDS: THYROID 60 MG TAB PO SCH (10:37)
[2017-12-01] MEDS: cefTRIAXone 2 GM in STERILE WATER INJ 20 ML IV SCH (11:03)
--- NOTE | 2017-12-01 17:37 | GCON ---
[f rep st] CONSULTATION INFECTIOUS DISEASE CONSULTATION REASON FOR CONSULTATION: Klebsiella bacteremia. HISTORY OF PRESENT ILLNESS: This is a 67-year-old woman, with a past medical history of coronary artery disease, left-sided renal carcinoma, and remote history of breast cancer, who presented to the emergency room after collapsing at home on 11/29/2017. The patient also complained of nausea, vomiting, and intermittent right-sided flank pain x1 week. She has had some intermittent flank pain for which she was evaluated approximately 1 month ago, and no abnormalities were found. She also reports feeling fatigued but she attributed this to altitude sickness. Upon admission to the emergency room, patient was found to have a leukocytosis, pyuria and, subsequently, a CT scan was performed that showed evidence of right pyelonephritis. Subsequently, patient had 1/2 blood cultures positive for Klebsiella on 11/29/2017, and a urine culture that is growing a corresponding gram-negative aiden. Blood cultures were positive on 11/30/2017. Empirically on admission, patient was started on ceftriaxone 2 g IV daily, and she has been on this since that time. Patient feels some improved today but is still feeling very tired. She denies any diarrhea. No rash. PAST MEDICAL HISTORY: 1. Coronary artery disease, PCI 2007, 2010. 2. Pulmonary embolism. 3. She has chronic respiratory failure on nocturnal oxygen, hypertension, hypothyroidism, hyperlipidemia, renal cell carcinoma, and breast cancer in 1982 , status post mastectomy. PAST SURGICAL HISTORY: 1. She has had cervical and lumbar spine surgeries. 2. Bilateral knee surgery. 3. Breast reconstruction/implants. 4. Partial left nephrectomy, October of 2016. 5. Partial thyroidectomy. MEDICATIONS: She is on Eliquis 5 mg twice daily, ceftriaxone 2 g IV daily, started on 11/29/2017. She is also on thyroid 120 mg p.o. daily, Zanaflex 4 mg q.i.d., Ambien as needed, Phenergan, oxycodone, Dilaudid, Prozac 40 mg daily, Valium 10 mg t.i.d. p.r.n., Wellbutrin 100 mg twice daily, Lipitor 20 mg daily. ALLERGIES: NKDA. 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 She is originally from [place] but now lives half the year in [place] and half the year in [place] with her daughter and her 2 sons. FAMILY HISTORY: Positive for coronary artery disease. REVIEW OF SYSTEMS: A complete 10-point review of systems was performed and is negative except as mentioned in the HPI. PHYSICAL EXAMINATION: VITAL SIGNS: Temperature on admission was 39. She is now afebrile at 36.8. Blood pressure 111/61, heart rate 72, respiratory rate 16 , saturation 98% on 3 L. GENERAL: This is a pleasant, nontoxic-appearing, conversational woman in no acute distress. HEENT: Pupils are reactive bilaterally. No conjunctival hemorrhages. Oropharynx has dry mucous membranes. Fair dentition. No oral ulcerations or exudate. NECK: Supple. No lymphadenopathy. CARDIOVASCULAR: Regular rate and rhythm. No murmur. CHEST: Clear to auscultation bilaterally. ABDOMEN: Soft, nontender. Bowel sounds are present. She had multiple well-healed surgical scars. She had some mild right flank tenderness. EXTREMITIES: No clubbing, cyanosis, or edema. SKIN: No rashes. NEUROLOGIC: She was alert and oriented x4. Moving all 4 extremities equally. She is slightly tangential. LABORATORY: White count 16978 on admission, then 14,000, then 10,000 today. Creatinine 0.7. Urinalysis was positive for leukocyte esterase, 50-182 RBCs, 25 -50 WBCs. Blood cultures 1/2 positive for Klebsiella. Susceptibilities pending. Urine culture is also showing a gram-negative aiden lactose morgue technician, ID is pending, greater than 100,000. IMAGING: As per HPI. ASSESSMENT AND PLAN: A 67-year-old woman, with multiple medical problems, presented with sepsis, found to have Klebsiella pyelonephritis, complicated by low-grade bacteremia. Clinically improved on empiric therapy with IV ceftriaxone. Continue IV ceftriaxone. Will await susceptibilities. Could adjust antibiotics to p.o. levofloxacin to complete antibiotic course of 10-14 days. Repeat blood cultures are not needed in this instance. I reviewed the course of treatment with patient at bedside and underlying pathogenesis of pyelonephritis complicated by bacteremia. Time was 70 minutes. Greater than 50% of time spent with education and counseling of the patient as described above. /[id number]/MODL MTDD
[2017-12-01] MEDS: ATORVASTATIN CALCIUM 20 MG TAB PO SCH (21:59)
[2017-12-02] MEDS: KETOROLAC 15 MG/1 ML SDV IVP SCH ×4 (00:02→23:02)
[2017-12-02] MEDS: PROMETHAZINE HCL 25 MG/ML INJ IVP PRN ×2 (00:06→15:57)
--- NOTE | 2017-12-02 02:50 | HOSPPROG ---
Hospitalist Progress Note Assessment/Plan: Hospitalist night float note Called by RN with concerns for acute altered mental status. Patient increasingly confused and concerns for slurred speech older her teeth are not in place. Patient did not have any focal deficits. Arrive to bedside to evaluate the patient and RN request. Neurologic exam is within normal limits with exception of patient's orientation as she is confused she does she is in the hospital but believes that she is in [place] where she does spend 6 months out of the year and the year of 1917 instead of 2017. Approximate time of onset of symptoms cord minutes with the timing of patient's nighttime meds including Valium, Ambien, Zanaflex, Phenergan and Dilaudid p.r.n. all of which (with exception of Dilaudid) have since been held until patient's mentation does improve a little bit. Additional items on differential including encephalopathy related to patient's infectious process versus less likely neurologic insult as patient without any focal deficits on exam. At time of my interview patient is resting quietly in the bed but does wake to name and follows commands. Objective: Vital Signs Temp Pulse Resp BP Pulse Ox 36.4 C 75 18 93/64 L 94 12/01/17 23:20 12/01/17 20:15 12/01/17 20:15 12/01/17 20:15 12/01/17 20:15 Laboratory Results 12/01/17 04:05 12/01/17 09:35 11/30/17 12/01/17 12/02/17 05:59 05:59 05:59 Intake Total 250 7194 220 Output Total 100 1851 1775 Balance 150 5343 -1555 ICD10 Worksheet Patient Problems: Problems Problem Status Onset Pyelonephritis Acute Bilateral swelling of feet Acute Chest pain Acute Elevated troponin Acute
[2017-12-02] MEDS: APIXABAN 5 MG TAB PO SCH ×2 (09:36→21:55)
[2017-12-02] MEDS: FLUoxetine 20 MG CAP PO SCH (09:37)
[2017-12-02] MEDS: THYROID 60 MG TAB PO SCH (09:37)
[2017-12-02] MEDS: SENNOSIDES 1 TAB PO SCH (09:37)
[2017-12-02] MEDS: cefTRIAXone 2 GM in STERILE WATER INJ 20 ML IV SCH (09:37)
[2017-12-02] MEDS: FAMOTIDINE 20 MG TAB PO SCH (09:37)
--- NOTE | 2017-12-02 09:50 | HOSPPROG ---
Hospitalist Progress Note Assessment/Plan: #Severe sepsis: resolved. Due to pyelonephritis, bacteremia #Klebsiella bacteremia: change to PO LQ at DC (Day 11/09) #Acute encephalopathy: resolved. Due to multiple sedative medications #Possible right renal pole mass: no definitive on CT. Will need repeat imaging once infection cleared #Hypotension: resolved with aggressive IVFs. Due to acute infection. Hold BB. #Urinary retention: chronic opioids likely contributing; has had issues with this in past #Fever: resolved. plan as above #Leukocytosis: nearly resolved on abx #Chronic back pain and opioid dependency: caution with home meds #CAD: s/p PCI #Pulmonary embolism: Eliquis #Chronic hypoxemic resp failure: stable #HTN: hold anti-hypertensives #HLD: not on statin #Diet: ADAT #DVT ppx: Lovenox time spent: 35 min bedside with pt, reviewing imaging/labs, coordinating tx plan. D/w Dr. Montana Subjective: confused, slurred speech overnight Objective: Vital Signs Temp Pulse Resp BP Pulse Ox 36.4 C 72 16 125/84 H 94 12/02/17 07:37 12/02/17 07:37 12/02/17 07:37 12/02/17 07:37 12/02/17 07:37 Laboratory Results 12/01/17 04:05 12/02/17 05:50 12/01/17 12/02/17 12/03/17 05:59 05:59 05:59 Intake Total 7147 520 Output Total 1851 6995 Balance 5134 -5382 - Time Spent With Patient Time Spent with Patient: greater than 35 minutes Time Spent with Patient: Greater than 35 minutes spent on this patients care, greater than 50% of time spent counseling, educating, and coordinating care regarding the above mentioned plan. - Physical Exam Constitutional: uncomfortable Eyes: PERRL Ears, Nose, Mouth, Throat: moist mucous membranes, hearing normal Cardiovascular: regular rate and rhythym Respiratory: no respiratory distress, no rales or rhonchi Gastrointestinal: normoactive bowel sounds, soft, non-tender abdomen Genitourinary: no bladder fullness, other (flank pain resolved) Skin: warm Musculoskeletal: full muscle strength Neurologic: AAOx3, CN II-XII Intact, other (slow to answer, but answering appropriately) ICD10 Worksheet Patient Problems: Problems Problem Status Onset Pyelonephritis Acute Bilateral swelling of feet Acute Chest pain Acute Elevated troponin Acute
--- NOTE | 2017-12-02 10:07 | PCMIDPN ---
Assessment/Plan: # Sepsis secondary to Klebsiella pyelonephritis complicated by bacteremia. Hemodynamics much improved and WBC normalized. Okay to transition to levofloxacin 750 mg daily for 6 more days starting 12/03/2017. Remove PICC line before discharge. Patient is to follow-up in ID clinic as an outpatient. Call for additional questions while hospitalized. # Sedated: no focal neuro deficits, oriented, query over sedation, management per hospitalist Medication Ceftriaxone 2 g IV daily, # 4 Subjective: Patient still complaining of right side pain but it is milder. Objective: Vital Signs Temp Pulse Resp BP Pulse Ox 36.4 C 72 16 125/84 H 94 12/02/17 07:37 12/02/17 07:37 12/02/17 07:37 12/02/17 07:37 12/02/17 07:37 Laboratory Results 12/01/17 04:05 12/02/17 05:50 12/01/17 12/02/17 12/03/17 05:59 05:59 05:59 Intake Total 7194 520 Output Total 1851 1775 Balance 5343 -1255 - Physical Exam General Appearance: alert, no apparent distress, obese, other (Sleepy but arousable to voice) EENT: pale conjunctiva, dry mucous membranes Respiratory: No accessory muscle use Cardiac/Chest: regular rate, rhythm Extremities: No pedal edema Abdomen: normal bowel sounds, non-tender, soft Skin: pallor, No rash Neuro/Psych: oriented x 3 - Line/s RUE PICC Lines: No drainage, No erythema - Time Spent With Patient Time Spent with Patient: greater than 35 minutes (Care was coordinated with Dr. Louann Martinez) Time Spent with Patient: Greater than 35 minutes spent on this patients care, greater than 50% of time spent counseling, educating, and coordinating care regarding the above mentioned plan. ICD10 Worksheet Patient Problems: Problems Problem Status Onset Pyelonephritis Acute Bilateral swelling of feet Acute Chest pain Acute Elevated troponin Acute
[2017-12-02] MEDS: buPROPion SR 100 MG TAB PO SCH ×2 (10:33→21:55)
[2017-12-02 11:01] LABS: PLATELET COUNT 244 10^3/uL (150-400)
--- NOTE | 2017-12-02 12:58 | ASMTCMCOM ---
CM Note CM Note Notes: Per Dr Montana, pt will DC on PO ABX and her PICC line will be removed prior to DC. No other DC needs. Date Signed: 12/02/2017 12:57 PM Electronically Signed By:Karolina Webster LCSW
[2017-12-02] MEDS: ACETAMINOPHEN 325 MG TAB PO PRN ×2 (15:57→22:48)
[2017-12-02] MEDS: LORazepam 2 MG/ML INJ IVP PRN (17:08)
[2017-12-02] MEDS ORDERED: 1/2 NS 1,000 ML IV SCH (20:00)
[2017-12-02] MEDS: ATORVASTATIN CALCIUM 20 MG TAB PO SCH (21:55)
[2017-12-03] MEDS ORDERED: NEBIVOLOL HCL 5 MG TAB PO ONE (00:15)
[2017-12-03] MEDS: hydrALAZINE 10 MG TAB PO PRN (00:43)
[2017-12-03] MEDS: LORazepam 2 MG/ML INJ IVP PRN (00:45)
[2017-12-03] MEDS: KETOROLAC 15 MG/1 ML SDV IVP SCH ×5 (05:49→23:28)
[2017-12-03] MEDS: NEBIVOLOL HCL 5 MG TAB PO SCH (08:12)
[2017-12-03] MEDS: APIXABAN 5 MG TAB PO SCH ×2 (08:13→20:17)
[2017-12-03] MEDS: FLUoxetine 20 MG CAP PO SCH (08:13)
[2017-12-03] MEDS: buPROPion SR 100 MG TAB PO SCH ×2 (08:13→20:18)
[2017-12-03] MEDS: THYROID 60 MG TAB PO SCH (08:13)
[2017-12-03] MEDS: SENNOSIDES 1 TAB PO SCH (08:13)
[2017-12-03] MEDS: FAMOTIDINE 20 MG TAB PO SCH (08:14)
[2017-12-03] MEDS: cefTRIAXone 2 GM in STERILE WATER INJ 20 ML IV SCH (08:15)
--- NOTE | 2017-12-03 09:29 | HOSPPROG ---
Hospitalist Progress Note Assessment/Plan: # sepsis (leuk, fever) d/t pyelo - resolved # pyelonephritis - cont rocephin, change to PO FQ soon # kleb pna bacteremia - as above # possible R renal mass - needs f/u CT when pyelo resolved # acute on chronic (nocturnal O2) resp failure - possible vol overload - stat CXR - likely will need lasix # diastolic dysfunction (seen on echo 2016) # CAD s/p PCI - eliquis/lipitor # htn - cont bystolic, may need additional agent # acute encephalopathy with somnolence - suspect narcotics, zanaflex, valium (possibly surreptitiously taking her own, RN found valium and oxy in her purse) - cont to hold sedating meds # chronic pain on continuous narcotics - holding as above # PE - eliquis # urinary retention - possible opioids; follow # hypotension - resolved with IVF (now hypertensive) Subjective: denies SOB but appears dyspneic; asking about going home; Objective: Vital Signs Temp Pulse Resp BP Pulse Ox 36.6 C 66 22 H 169/114 H 93 12/03/17 07:33 12/03/17 09:13 12/03/17 09:13 12/03/17 09:13 12/03/17 09:13 Laboratory Results 12/02/17 10:40 12/03/17 05:35 12/02/17 12/03/17 12/04/17 05:59 05:59 05:59 Intake Total 520 500 425 Output Total 1775 335 150 Balance -12[address] reviewed - Physical Exam Constitutional: not in pain, other (sleeping, aroused by voice) Cardiovascular: regular rate and rhythym, no murmur, rub, or gallop Respiratory: inspiratory crackles (bilat bases), respiratory distress (mod with tachypnea), No clear to auscultation, No reduced air movement, No bronchial breath sounds Gastrointestinal: soft, non-tender abdomen, no palpable masses, No guarding, No rebound, No distension ICD10 Worksheet Patient Problems: Problems Problem Status Onset Chest pain Acute Bilateral swelling of feet Acute Elevated troponin Acute Pyelonephritis Acute
[2017-12-03] MEDS: FUROSEMIDE 40 MG/4 ML VIAL IVP SCH ×2 (11:40→15:23)
[2017-12-03] MEDS: ATORVASTATIN CALCIUM 20 MG TAB PO SCH (20:17)
[2017-12-04] MEDS: KETOROLAC 15 MG/1 ML SDV IVP SCH ×4 (05:19→23:35)
[2017-12-04 06:39] LABS: PLATELET COUNT 328 10^3/uL (150-400)
[2017-12-04] MEDS ORDERED: PROTOCOL POTASSIUM 1 DOSE MISC PRN (08:58)
[2017-12-04] MEDS ORDERED: POTASSIUM CL 10 MEQ TAB PO ONE ×2 (09:09→20:09)
[2017-12-04] MEDS: APIXABAN 5 MG TAB PO SCH ×2 (09:48→20:18)
[2017-12-04] MEDS: FLUoxetine 20 MG CAP PO SCH (09:49)
[2017-12-04] MEDS: SENNOSIDES 1 TAB PO SCH (09:50)
[2017-12-04] MEDS: buPROPion SR 100 MG TAB PO SCH ×2 (09:50→20:19)
[2017-12-04] MEDS: FAMOTIDINE 20 MG TAB PO SCH (09:50)
[2017-12-04] MEDS: NEBIVOLOL HCL 5 MG TAB PO SCH (09:50)
[2017-12-04] MEDS: FUROSEMIDE 40 MG/4 ML VIAL IVP SCH ×2 (09:54→15:04)
[2017-12-04] MEDS: THYROID 60 MG TAB PO SCH (10:07)
[2017-12-04] MEDS: cefTRIAXone 2 GM in STERILE WATER INJ 20 ML IV SCH (10:07)
--- NOTE | 2017-12-04 13:41 | HOSPPROG ---
Hospitalist Progress Note Assessment/Plan: # sepsis (leuk, fever) d/t pyelo - resolved # pyelonephritis - start PO levaquin tomorrow D#01/09 # kleb pna bacteremia - as above # possible R renal mass - needs f/u CT when pyelo resolved # acute on chronic (nocturnal O2) resp failure d/t pulm edema - cont lasix at lower dose - follow lytes, SCr, bicarb tomorrow - repeat CXR ordered # diastolic dysfunction (seen on echo 2016) # CAD s/p PCI - eliquis/lipitor # htn - cont bystolic, may need additional agent # acute encephalopathy with somnolence - resolved # chronic pain on continuous narcotics - need to restart meds today # PE - eliquis # urinary retention - possible opioids; follow # hypotension - resolved with IVF (now hypertensive) Subjective: feels much better today; breathing better; urinating frequently; back pain worse Objective: Vital Signs Temp Pulse Resp BP Pulse Ox 37.0 C 64 18 156/101 H 90 L 12/04/17 13:09 12/04/17 13:09 12/04/17 13:09 12/04/17 13:09 12/04/17 13:09 Laboratory Results 12/04/17 05:24 12/04/17 05:24 12/03/17 12/04/17 12/05/17 05:59 05:59 05:59 Intake Total 500 1145 Output Total 335 7094 Balance 165 -4084 - Physical Exam Constitutional: no apparent distress, appears nourished Cardiovascular: regular rate and rhythym, no murmur, rub, or gallop Respiratory: no respiratory distress, inspiratory crackles (mild, at bases), No expiratory wheeze, No bronchial breath sounds, No rhonchi Gastrointestinal: soft, non-tender abdomen, no palpable masses, No guarding, No rebound, No distension ICD10 Worksheet Patient Problems: Problems Problem Status Onset Chest pain Acute Bilateral swelling of feet Acute Elevated troponin Acute Pyelonephritis Acute
[2017-12-04] MEDS: oxyCODONE IR 5 MG TAB PO PRN (15:03)
[2017-12-04] MEDS: DIAZEPAM 5 MG TAB PO PRN (15:43)
[2017-12-04] MEDS: ATORVASTATIN CALCIUM 20 MG TAB PO SCH (20:18)
[2017-12-04] MEDS: ZOLPIDEM TARTRATE 5 MG TAB PO PRN (20:19)
[2017-12-05] MEDS: hydrALAZINE 10 MG TAB PO PRN ×2 (04:58→12:20)
[2017-12-05] MEDS: KETOROLAC 15 MG/1 ML SDV IVP SCH (04:59)
[2017-12-05] MEDS: FUROSEMIDE 40 MG/4 ML VIAL IVP SCH ×2 (09:56→13:23)
[2017-12-05] MEDS: FAMOTIDINE 20 MG TAB PO SCH (09:56)
[2017-12-05] MEDS: THYROID 60 MG TAB PO SCH (09:56)
[2017-12-05] MEDS: SENNOSIDES 1 TAB PO SCH (09:56)
[2017-12-05] MEDS: NEBIVOLOL HCL 5 MG TAB PO SCH (09:56)
[2017-12-05] MEDS: buPROPion SR 100 MG TAB PO SCH ×2 (09:56→21:57)
[2017-12-05] MEDS: APIXABAN 5 MG TAB PO SCH ×2 (09:57→21:57)
[2017-12-05] MEDS: FLUoxetine 20 MG CAP PO SCH (09:57)
--- NOTE | 2017-12-05 10:22 | HOSPPROG ---
Hospitalist Progress Note Assessment/Plan: # sepsis (leuk, fever) d/t pyelo - resolved # pyelonephritis - currently on levaquin PO D#02/08 # kleb pna bacteremia - as above # possible R renal mass - needs f/u CT when pyelo resolved # acute on chronic (nocturnal O2) resp failure d/t pulm edema - cont lasix at lower dose, may need an additional dose later today - follow lytes, SCr, bicarb tomorrow - repeat CXR tomorrow am # diastolic dysfunction (seen on echo 2017) # CAD s/p PCI - eliquis/lipitor # htn - cont bystolic, start low dose lisinopril today; will tolerate higher BPs for now with aggressive diuresis # acute encephalopathy with somnolence - resolved, d/t narcotics, zanaflex # chronic pain on continuous narcotics - meds restarted # PE - eliquis # urinary retention - possible opioids; better # hypotension - resolved with IVF (now hypertensive) Subjective: wants to go home; breathing feels ok Objective: Vital Signs Temp Pulse Resp BP Pulse Ox 36.6 C 60 18 165/109 H 90 L 12/05/17 09:51 12/05/17 09:51 12/05/17 09:51 12/05/17 09:51 12/05/17 09:51 Microbiology 11/29/17 21:20 Blood Culture - Final Blood Laboratory Results 12/04/17 05:24 12/05/17 04:49 12/04/17 12/05/17 12/06/17 05:59 05:59 05:59 Intake Total 1145 Output Total 7035 700 Balance -5880 -700 CXR personally reviewed - Physical Exam Constitutional: no apparent distress, appears nourished Cardiovascular: regular rate and rhythym, no murmur, rub, or gallop Respiratory: no respiratory distress, inspiratory crackles (R base), No clear to auscultation, No reduced air movement, No rhonchi Gastrointestinal: soft, non-tender abdomen, no palpable masses, No guarding, No rebound, No distension ICD10 Worksheet Patient Problems: Problems Problem Status Onset Chest pain Acute Bilateral swelling of feet Acute Elevated troponin Acute Pyelonephritis Acute
[2017-12-05] MEDS: oxyCODONE IR 5 MG TAB PO PRN ×2 (10:32→21:59)
[2017-12-05] MEDS: LISINOPRIL 2.5 MG TAB PO SCH (10:32)
[2017-12-05] MEDS: LORazepam 2 MG/ML INJ IVP PRN (11:51)
[2017-12-05] MEDS: DIAZEPAM 5 MG TAB PO PRN ×2 (13:23→21:57)
[2017-12-05] MEDS: PROMETHAZINE HCL 25 MG/ML INJ IVP PRN ×2 (13:23→22:11)
--- NOTE | 2017-12-05 14:26 | ASMTCMCOM ---
CM Note CM Note Notes: Patient lives with her daughter and son-in-law. Will be on po meds for discharge, no other needs. Date Signed: 12/05/2017 02:26 PM Electronically Signed By:Beulah Nagy LCSW
[2017-12-05] MEDS: ATORVASTATIN CALCIUM 20 MG TAB PO SCH (21:57)
[2017-12-05] MEDS: ZOLPIDEM TARTRATE 5 MG TAB PO PRN (23:59)
[2017-12-06] MEDS ORDERED: POTASSIUM CL 10 MEQ TAB PO ONE ×3 (07:21→20:50)
[2017-12-06] MEDS: FLUoxetine 20 MG CAP PO SCH (10:08)
[2017-12-06] MEDS: APIXABAN 5 MG TAB PO SCH ×2 (10:08→20:47)
[2017-12-06] MEDS: buPROPion SR 100 MG TAB PO SCH ×2 (10:08→21:14)
[2017-12-06] MEDS: FAMOTIDINE 20 MG TAB PO SCH (10:08)
[2017-12-06] MEDS: THYROID 60 MG TAB PO SCH (10:08)
[2017-12-06] MEDS: LISINOPRIL 2.5 MG TAB PO SCH (10:08)
[2017-12-06] MEDS: SENNOSIDES 1 TAB PO SCH (10:09)
[2017-12-06] MEDS: FUROSEMIDE 40 MG/4 ML VIAL IVP SCH (10:11)
[2017-12-06] MEDS: oxyCODONE IR 5 MG TAB PO PRN ×2 (10:30→18:40)
[2017-12-06] MEDS: NEBIVOLOL HCL 5 MG TAB PO SCH (10:30)
--- NOTE | 2017-12-06 13:43 | HOSPPROG ---
Hospitalist Progress Note Assessment/Plan: # pna - new today; ?aspiration - change abx to unasyn today - check CXR tomorrow am # sepsis (leuk, fever) d/t pyelo - resolved # pyelonephritis - change from levaquin to unasyn, abx D#03/11 # kleb pna bacteremia - as above # possible R renal mass - needs f/u CT when pyelo resolved # acute on chronic (nocturnal O2) resp failure d/t pulm edema, possibly pna - CXR tomorrow am # diastolic dysfunction (seen on echo 2016) # CAD s/p PCI - eliquis/lipitor # htn - cont bystolic, low dose lisinopril started # acute encephalopathy with somnolence - resolved, d/t narcotics, zanaflex # chronic pain on continuous narcotics - meds restarted # PE - eliquis # urinary retention - possible opioids; better # hypotension - resolved with IVF (now hypertensive) Subjective: chest feels tight, like she has a pna; otherwise strength is about the same Objective: Vital Signs Temp Pulse Resp BP Pulse Ox 36.9 C 72 18 135/95 H 92 12/06/17 09:15 12/06/17 10:30 12/06/17 10:29 12/06/17 10:58 12/06/17 10:33 Laboratory Results 12/04/17 05:24 12/06/17 04:26 12/05/17 12/06/17 12/07/17 05:59 05:59 05:59 Intake Total 600 460 Output Total 700 1700 950 Balance -700 -1100 -490 - Physical Exam Constitutional: no apparent distress, appears nourished Cardiovascular: regular rate and rhythym, no murmur, rub, or gallop Respiratory: no respiratory distress, inspiratory crackles (R sided), No bronchial breath sounds, No dullness to percussion, No rhonchi Gastrointestinal: soft, non-tender abdomen, no palpable masses, No guarding, No rebound, No distension ICD10 Worksheet Patient Problems: Problems Problem Status Onset Pyelonephritis Acute Bilateral swelling of feet Acute Chest pain Acute Elevated troponin Acute
[2017-12-06] MEDS: DIAZEPAM 5 MG TAB PO PRN ×2 (13:48→20:48)
[2017-12-06 14:22] LABS: PLATELET COUNT 397 10^3/uL (150-400)
[2017-12-06] MEDS ORDERED: NS 1,000 ML IV ONE (15:53)
[2017-12-06] MEDS: AMPICILLIN/SULBACTAM 3 GM in NS 50 ML IV SCH ×2 (15:56→23:51)
[2017-12-06] MEDS: ATORVASTATIN CALCIUM 20 MG TAB PO SCH (20:47)
[2017-12-06] MEDS: ZOLPIDEM TARTRATE 5 MG TAB PO PRN (23:59)
[2017-12-07] MEDS ORDERED: SODIUM CL NASAL 45 ML BTL EACHNARE PRN (04:11)
[2017-12-07] MEDS ORDERED: POTASSIUM CL 10 MEQ TAB PO ONE ×2 (05:11→20:35)
[2017-12-07] MEDS: AMPICILLIN/SULBACTAM 3 GM in NS 50 ML IV SCH ×2 (05:40→13:11)
[2017-12-07] MEDS: BUPRENORPHINE TP SCH (09:19)
[2017-12-07] MEDS: FAMOTIDINE 20 MG TAB PO SCH (09:51)
[2017-12-07] MEDS: oxyCODONE IR 5 MG TAB PO PRN ×2 (09:51→22:19)
[2017-12-07] MEDS: FLUoxetine 20 MG CAP PO SCH (09:51)
[2017-12-07] MEDS: SENNOSIDES 1 TAB PO SCH (09:52)
[2017-12-07] MEDS: THYROID 60 MG TAB PO SCH (09:52)
[2017-12-07] MEDS: buPROPion SR 100 MG TAB PO SCH ×2 (09:52→20:14)
[2017-12-07] MEDS: APIXABAN 5 MG TAB PO SCH ×2 (09:52→20:14)
--- NOTE | 2017-12-07 12:36 | HOSPPROG ---
Hospitalist Progress Note Assessment/Plan: 67F admitted with pyelo and bacteremia. Hypotension required IVF which precipitated pulmonary edema. Also developed new pna on 12/06. Currently continuing to diurese. May be ready for dc soon, hope to titrate off O2 today. # pna, suspect aspiration - better on CXR - cont unasyn for 5 days (day 2 today) # sepsis (leuk, fever) d/t pyelo - resolved # pyelonephritis - change from levaquin to unasyn (ok for PO), abx D#/ # kleb pna bacteremia - as per pyelo # possible R renal mass - needs f/u CT when pyelo resolved; recommend 1 month # acute on chronic (nocturnal O2) resp failure d/t pulm edema, possibly pna - slow improvement today - check BMP and consider lasix today # diastolic dysfunction (seen on echo 2016) # CAD s/p PCI - eliquis/lipitor # htn - holding today with needing lasix - may need to restart # acute encephalopathy with somnolence - resolved, d/t narcotics, zanaflex # chronic pain on continuous narcotics - meds restarted # PE - eliquis # urinary retention - possible opioids; better # hypotension - resolved with IVF (now hypertensive) Subjective: still SOB; has pressure in chest with inspiration Objective: Vital Signs Temp Pulse Resp BP Pulse Ox 36.6 C 73 20 154/88 H 92 12/07/17 06:00 12/07/17 09:52 12/07/17 09:52 12/07/17 09:52 12/07/17 09:52 Microbiology 12/06/17 13:50 Respiratory Panel (PCR) - Final Nasal, Sinus - Swab No Organism Detected Laboratory Results 12/06/17 13:50 12/07/17 04:06 12/06/17 12/07/17 12/08/17 05:59 05:59 05:59 Intake Total 600 660 150 Output Total 1700 1375 600 Balance -1100 715 -450 - Physical Exam Constitutional: no apparent distress, appears nourished Cardiovascular: regular rate and rhythym, no murmur, rub, or gallop Respiratory: no respiratory distress, inspiratory crackles (R base), bronchial breath sounds (R base), No rhonchi Gastrointestinal: soft, non-tender abdomen, no palpable masses, No guarding, No rebound, No distension ICD10 Worksheet Patient Problems: Problems Problem Status Onset Pyelonephritis Acute Bilateral swelling of feet Acute Chest pain Acute Elevated troponin Acute
[2017-12-07] MEDS: DIAZEPAM 5 MG TAB PO PRN ×2 (14:00→20:14)
[2017-12-07] MEDS ORDERED: FUROSEMIDE 40 MG/4 ML VIAL IVP ONE (14:59)
[2017-12-07] MEDS: AMPICILLIN/SULBACTAM 3 GM in NS 100 ML IV SCH ×2 (17:25→23:29)
[2017-12-07] MEDS ORDERED: FLUCONAZOLE 150 MG TAB PO ONE (17:49)
[2017-12-07] MEDS: ATORVASTATIN CALCIUM 20 MG TAB PO SCH (20:14)
[2017-12-07] MEDS: ZOLPIDEM TARTRATE 5 MG TAB PO PRN (22:19)
[2017-12-08] MEDS: AMPICILLIN/SULBACTAM 3 GM in NS 100 ML IV SCH ×4 (06:10→23:52)
[2017-12-08] MEDS: FAMOTIDINE 20 MG TAB PO SCH (10:22)
[2017-12-08] MEDS: buPROPion SR 100 MG TAB PO SCH ×2 (10:23→20:26)
[2017-12-08] MEDS: FLUoxetine 20 MG CAP PO SCH (10:23)
[2017-12-08] MEDS: SENNOSIDES 1 TAB PO SCH (10:24)
[2017-12-08] MEDS: APIXABAN 5 MG TAB PO SCH ×2 (10:24→20:26)
[2017-12-08] MEDS: THYROID 60 MG TAB PO SCH (10:25)
[2017-12-08] MEDS: oxyCODONE IR 5 MG TAB PO PRN (10:44)
[2017-12-08] MEDS: DIAZEPAM 5 MG TAB PO PRN ×2 (13:14→20:30)
--- NOTE | 2017-12-08 15:13 | HOSPPROG ---
Hospitalist Progress Note Assessment/Plan: 67F admitted with pyelo and bacteremia. Hypotension required IVF which precipitated pulmonary edema. Also developed new pna on 12/06. Currently continuing to diurese. May be ready for dc soon, hope to titrate off O2 today. # pna, suspect aspiration - better on CXR - cont unasyn for 5 days (day 2 today) -consider change to Augmentin as soon as tomorrow # sepsis (leuk, fever) d/t pyelo - resolved # pyelonephritis - change from levaquin to unasyn (ok for PO) # kleb pna bacteremia - as per pyelo # possible R renal mass - needs f/u CT when pyelo resolved; recommend 1 month # acute on chronic (nocturnal O2) resp failure d/t pulm edema, possibly pna - slow improvement today # diastolic dysfunction (seen on echo 2016) # CAD s/p PCI - eliquis/lipitor # htn - holding today with needing lasix - may need to restart # acute encephalopathy with somnolence - resolved, d/t narcotics, zanaflex # chronic pain on continuous narcotics - meds restarted # PE - eliquis # urinary retention - possible opioids; better # hypotension - resolved with IVF (now hypertensive) Plan: -cont inpatient -Give Lasix IV 20mg x 1 today -Repeat CXR in a.m. -Hopeful D/c soon Subjective: feeling better. but still on 2 L O2 Objective: Vital Signs Temp Pulse Resp BP Pulse Ox 36.9 C 70 20 122/82 H 91 L 12/08/17 10:25 12/08/17 10:25 12/08/17 10:25 12/08/17 10:25 12/08/17 11:25 Laboratory Results 12/06/17 13:50 12/08/17 05:00 12/07/17 12/08/17 12/09/17 05:59 05:59 05:59 Intake Total 660 700 50 Output Total 1372 7880 Balance -727 -2176 50 - Physical Exam Constitutional: no apparent distress Eyes: PERRL, EOMI Ears, Nose, Mouth, Throat: moist mucous membranes, hearing normal Cardiovascular: regular rate and rhythym, No edema Respiratory: no respiratory distress, reduced air movement Gastrointestinal: normoactive bowel sounds, soft, non-tender abdomen Skin: warm Neurologic: AAOx3 Psychiatric: interacting appropriately, not anxious, not encephalopathic Lymph, Heme, Immunologic: No petechiae ICD10 Worksheet Patient Problems: Problems Problem Status Onset Pyelonephritis Acute Bilateral swelling of feet Acute Chest pain Acute Elevated troponin Acute
[2017-12-08] MEDS ORDERED: FUROSEMIDE 20 MG/2 ML VIAL IVP ONE (15:16)
--- NOTE | 2017-12-08 15:31 | ASMTCMCOM ---
CM Note CM Note Notes: Patient making slow progress. She is still requiring 2L O2. She will likely discharge soon. She will be staying with her daughter in town until she's well enough to travel back to [place]. I wrote an airline excuse letter and put it in her chart. No other needs anticipated. Date Signed: 12/08/2017 03:31 PM Electronically Signed By:Anais Acosta RN
[2017-12-08] MEDS: ATORVASTATIN CALCIUM 20 MG TAB PO SCH (20:26)
[2017-12-08] MEDS: ZOLPIDEM TARTRATE 5 MG TAB PO PRN (20:30)
[2017-12-09] MEDS: AMPICILLIN/SULBACTAM 3 GM in NS 100 ML IV SCH ×4 (04:24→23:14)
[2017-12-09] MEDS: oxyCODONE IR 5 MG TAB PO PRN (05:06)
[2017-12-09] MEDS: FAMOTIDINE 20 MG TAB PO SCH (09:54)
[2017-12-09] MEDS: FLUoxetine 20 MG CAP PO SCH (09:54)
[2017-12-09] MEDS: buPROPion SR 100 MG TAB PO SCH ×2 (09:54→21:18)
[2017-12-09] MEDS: SENNOSIDES 1 TAB PO SCH (09:54)
[2017-12-09] MEDS: ACETAMINOPHEN 325 MG TAB PO PRN (09:54)
[2017-12-09] MEDS: THYROID 60 MG TAB PO SCH (09:54)
[2017-12-09] MEDS: APIXABAN 5 MG TAB PO SCH ×2 (09:54→19:59)
[2017-12-09] MEDS: DIAZEPAM 5 MG TAB PO PRN ×3 (10:03→23:50)
--- NOTE | 2017-12-09 11:52 | HOSPPROG ---
Hospitalist Progress Note Assessment/Plan: 67F admitted with pyelo and bacteremia. Hypotension required IVF which precipitated pulmonary edema. Also developed new pna on 12/06. -O2 needs have increased since yesterday -CXR personally reviewed appears improving Plan: -Hold off on Lasix today -check TTE -start steroids -cont abx as is. -schedule inhaler # pna, suspect aspiration - better on CXR - cont unasyn -consider change to Augmentin soon # sepsis (leuk, fever) d/t pyelo - resolved # pyelonephritis - resolved # kleb pna bacteremia - as per pyelo # possible R renal mass - needs f/u CT when pyelo resolved; recommend 1 month # acute on chronic (nocturnal O2) resp failure d/t pulm edema, possibly pna - slow improvement today # diastolic dysfunction (seen on echo 2016) # CAD s/p PCI - eliquis/lipitor # htn - holding today with needing lasix - may need to restart # acute encephalopathy with somnolence - resolved, d/t narcotics, zanaflex # chronic pain on continuous narcotics - meds restarted # PE - eliquis # urinary retention - possible opioids; better # hypotension - resolved with IVF (now hypertensive) Subjective: O2 nees have increased. Has cough with inspiration. no leg swelling. no cp. no fever. Objective: Vital Signs Temp Pulse Resp BP Pulse Ox 36.9 C 72 16 117/82 H 90 L 12/09/17 07:46 12/09/17 07:46 12/09/17 07:46 12/09/17 07:46 12/09/17 07:46 Laboratory Results 12/06/17 13:50 12/09/17 04:16 12/08/17 12/09/17 12/10/17 05:59 05:59 05:59 Intake Total 700 1600 Output Total 3450 Balance -2750 1600 - Physical Exam Constitutional: no apparent distress Eyes: PERRL, EOMI Ears, Nose, Mouth, Throat: moist mucous membranes, hearing normal, ears appear normal Cardiovascular: regular rate and rhythym Respiratory: reduced air movement, expiratory wheeze Gastrointestinal: normoactive bowel sounds, soft, non-tender abdomen Genitourinary: no bladder fullness Skin: warm Musculoskeletal: generalized weakness Neurologic: AAOx3 Psychiatric: interacting appropriately, not anxious, not encephalopathic Lymph, Heme, Immunologic: No petechiae ICD10 Worksheet Patient Problems: Problems Problem Status Onset Pyelonephritis Acute Bilateral swelling of feet Acute Chest pain Acute Elevated troponin Acute
[2017-12-09] MEDS: ALBUTEROL 3 ML DEYVIAL IH SCH ×4 (12:17→21:11)
[2017-12-09] MEDS: predniSONE 20 MG TAB PO SCH (12:46)
--- NOTE | 2017-12-09 17:13 | ECHO ---
[email or web address] [address] [address] Main: [phone] Fax: Transthoracic Echocardiogram Name: ALENA CLARKE MR#: [id number] Study Date: 12/09/2017 Study Time: 03:01 PM Date of : 1950 Age: 67 year(s) Height: 190.5 cm (75 in.) Weight: 78.47 kg (173 lb.) BSA: 2.06 m2 Gender: Female Examination: Echo Indication: Rt Kidney Mass, Pyelonephritis, Eval LV Fx Image Quality: Contrast: Requested by: Fidel Dhillon BP: 117 mmHg/82 mmHg Heart Rate: Rhythm: Indication: Rt Kidney Mass, Pyelonephritis, Eval LV Fx Procedure Staff Activities Counselor: Jose Leger RDCS Reading Physician: Avani Sevilla MD Requesting Provider: Conclusions: Normal size left ventricle. No LV hypertrophy. Normal global systolic LV function. EF is 65 %. No regional wall motion abnormality. Grade 1 diastolic dysfunction (abnormal relaxation). Elevated left ventricular filling pressures.. Normal size right ventricle. Normal RV function. no significant valvular disease. Compared with a 11/19/2016 no significant change. Measurements: Chambers Valvular Assessment AV/MV Valvular Assessment TV/PV Normal Normal Normal Name Value Range Name Value Range Name Value Range Ao Abiola (MM): 2.7 cm (2.2 cm-3.7 AV Vmax: 1.59 m/s (1 m/s-1.7 TR Vmax: 2.84 mm/s ( - ) cm) m/s) TR PGmax: 32 mmHg ( - ) IVSd (2D): 1.0 cm (0.6 cm-1.1 AV maxP mmHg ( - ) syst. PAP: 37 mmHg ( - ) cm) LVOT Vmax: 0.84 m/s (0.7 m/s-1.1 PV Vmax: 1.11 m/s (0.6 m/s-0.9 LVDd (2D): 4.6 cm (3.9 cm-5.3 m/s) m/s) cm) MV E Vmax: 0.73 m/s ( - ) PV PGmax: 5 mmHg ( - ) LVDs (2D): 3.0 cm (2.1 cm-4 MV A Vmax: 0.88 m/s ( - ) cm) MV E/A: 0.83 ( - ) LVPWd (2D): 0.9 cm ( - ) LVEF (2D): 65 (>=54 %) Continued Measurements: Chambers Valvular Assessment AV/MV Valvular Assessment TV/PV Patient: ALENA CLARKE Study Date: 12/09/2017 Page 1 of 2 03:01 PM Name Value Name Value Name Value LADs Lon.9 cm MV E/E' Septal: 16.30 CVP (est.): 5 mmHg LA Area: 16.7 cm2 MV E/E' Lateral: 13.10 LA Volume: 53 ml LA Volume Index: 25.7 ml/m2 Findings: Left Ventricle: Normal size left ventricle. No LV hypertrophy. Normal global systolic LV function. EF is 65 %. No regional wall motion abnormality. Grade 1 diastolic dysfunction (abnormal relaxation). Elevated left ventricular filling pressures.. Right Ventricle: Normal size right ventricle. Normal RV function. Left Atrium: The left atrium is normal in size. Right Atrium: The right atrium is normal in size. Mitral Valve: The mitral valve is normal in appearance and function. There is no mitral valve regurgitation. Trivial mitral valve regurgitation. Aortic Valve: Minimal aortic cusp calcification is noted. The aortic valve is tri-leaflet. There is no aortic valve regurgitation. Tricuspid Valve: The tricuspid valve appears normal. Trivial tricuspid valve regurgitation. The pulmonary artery pressure is normal. Pulmonic Valve: The pulmonic valve is normal in appearance and function. Aorta: The aorta is normal. Pericardium: No pericardial effusion. Exam Comments: Compared to the previous exam of 03/25/17 there is no significant change.. (No Signature Object) Patient: ALENA CLARKE Study Date: 12/09/2017 Page 2 of 2 03:01 PM [id number]
[2017-12-09] MEDS: ATORVASTATIN CALCIUM 20 MG TAB PO SCH (19:59)
[2017-12-09] MEDS: ZOLPIDEM TARTRATE 5 MG TAB PO PRN (21:31)
[2017-12-09] MEDS ORDERED: FUROSEMIDE 20 MG/2 ML VIAL IVP ONE (23:54)
[2017-12-10 04:59] LABS: PLATELET COUNT 338 10^3/uL (150-400)
[2017-12-10] MEDS: AMPICILLIN/SULBACTAM 3 GM in NS 100 ML IV SCH ×3 (05:46→17:54)
[2017-12-10] MEDS ORDERED: FUROSEMIDE 20 MG/2 ML VIAL IVP ONE ×3 (08:25→15:00)
[2017-12-10] MEDS: FLUoxetine 20 MG CAP PO SCH (09:42)
[2017-12-10] MEDS: buPROPion SR 100 MG TAB PO SCH ×2 (09:43→21:04)
[2017-12-10] MEDS: SENNOSIDES 1 TAB PO SCH (09:43)
[2017-12-10] MEDS: predniSONE 20 MG TAB PO SCH (09:43)
[2017-12-10] MEDS: APIXABAN 5 MG TAB PO SCH ×2 (09:44→21:04)
[2017-12-10] MEDS: THYROID 60 MG TAB PO SCH (09:44)
[2017-12-10] MEDS: FAMOTIDINE 20 MG TAB PO SCH (09:44)
[2017-12-10] MEDS: ALBUTEROL 3 ML DEYVIAL IH SCH ×3 (11:07→20:52)
[2017-12-10] MEDS: DIAZEPAM 5 MG TAB PO PRN ×2 (13:08→21:06)
--- NOTE | 2017-12-10 13:40 | HOSPPROG ---
Hospitalist Progress Note Assessment/Plan: 67F admitted with pyelo and bacteremia. Hypotension required IVF which precipitated pulmonary edema. Also developed new pna on 12/06. -Yesterday Lasix was held during the day but O2 needs increased overnight and a CXR last night showed worse effusion compared to CXR from a.m. Received Lasix 20mg IV x one with some improvement last night. O2 still at 5 L -TTE with diastolic dysfunction, but essentially unchanged from previous Plan: -Additional Lasix today -If no significant improvement tomorrow, will obtain a Pulm consult -cont Steroids -cont abx -cont inhaler # pna, suspect aspiration - better on CXR - cont unasyn -consider change to Augmentin soon # sepsis (leuk, fever) d/t pyelo - resolved # pyelonephritis - resolved # kleb pna bacteremia - as per pyelo # possible R renal mass - needs f/u CT when pyelo resolved; recommend 1 month # acute on chronic (nocturnal O2) resp failure d/t pulm edema, possibly pna - slow improvement today # diastolic dysfunction (seen on echo 2018) # CAD s/p PCI - eliquis/lipitor # htn - overall ok # acute encephalopathy with somnolence - resolved, d/t narcotics, zanaflex # chronic pain on continuous narcotics - meds restarted # PE - eliquis # urinary retention - possible opioids; better # hypotension - resolved with IVF Subjective: O2 needs went up last night, improved with Lasix. no cp or sob. no fever. no cough. Objective: Vital Signs Temp Pulse Resp BP Pulse Ox 36.7 C 63 18 124/78 H 92 12/10/17 08:00 12/10/17 08:00 12/10/17 08:00 12/10/17 08:00 12/10/17 08:00 Laboratory Results 12/10/17 04:18 12/10/17 04:18 12/09/17 12/10/17 12/11/17 05:59 05:59 05:59 Intake Total 1600 400 Output Total 500 2700 Balance 1600 -100 -2700 - Physical Exam Constitutional: no apparent distress Eyes: PERRL, EOMI Ears, Nose, Mouth, Throat: moist mucous membranes, hearing normal Cardiovascular: regular rate and rhythym Respiratory: no respiratory distress, reduced air movement Gastrointestinal: normoactive bowel sounds Skin: warm Musculoskeletal: generalized weakness Neurologic: AAOx3 Psychiatric: interacting appropriately, not anxious, not encephalopathic Lymph, Heme, Immunologic: No petechiae ICD10 Worksheet Patient Problems: Problems Problem Status Onset Pyelonephritis Acute Bilateral swelling of feet Acute Chest pain Acute Elevated troponin Acute
[2017-12-10] MEDS: oxyCODONE IR 5 MG TAB PO PRN (14:09)
[2017-12-10] MEDS: ATORVASTATIN CALCIUM 20 MG TAB PO SCH (21:04)
[2017-12-10] MEDS: ZOLPIDEM TARTRATE 5 MG TAB PO PRN (21:12)
[2017-12-11] MEDS: AMPICILLIN/SULBACTAM 3 GM in NS 100 ML IV SCH ×5 (00:09→23:36)
[2017-12-11] MEDS: DIAZEPAM 5 MG TAB PO PRN ×3 (04:29→20:46)
[2017-12-11] MEDS: ALBUTEROL 3 ML DEYVIAL IH SCH ×4 (05:02→20:37)
[2017-12-11 05:12] LABS: PLATELET COUNT 328 10^3/uL (150-400)
[2017-12-11] MEDS: oxyCODONE IR 5 MG TAB PO PRN ×3 (09:54→20:45)
[2017-12-11] MEDS: FAMOTIDINE 20 MG TAB PO SCH (09:55)
[2017-12-11] MEDS: predniSONE 20 MG TAB PO SCH (09:55)
[2017-12-11] MEDS: FLUoxetine 20 MG CAP PO SCH (09:55)
[2017-12-11] MEDS: SENNOSIDES 1 TAB PO SCH (09:55)
[2017-12-11] MEDS: APIXABAN 5 MG TAB PO SCH ×2 (09:56→20:46)
[2017-12-11] MEDS: buPROPion SR 100 MG TAB PO SCH ×2 (09:56→20:42)
[2017-12-11] MEDS ORDERED: IOPAMIDOL (ISOVUE 370) 100 ML BTL IV ONE (11:14)
[2017-12-11] MEDS: THYROID 60 MG TAB PO SCH (11:46)
--- NOTE | 2017-12-11 13:09 | HOSPPROG ---
Hospitalist Progress Note Assessment/Plan: 67F admitted with pyelo and bacteremia. Hypotension required IVF which precipitated pulmonary edema. Also developed new pna on 12/06. Resp malagon she is still needing 5 L of O2. Her baseline is nocturnal O2 only. The etiology initially was pulm edema vs pna but she has not had any significant improvement of her hypoxemia. Repeat imaging has shown improving CXR. Diuretics were held 2 days ago and she had worsening O2 needs by night time with some improvement on diuretics given that night. However attempts to be more aggressive with diuretics since then have not made much improvement and she has not had much urine outputs. She cont to have trace LE edema. TTE is essentially unchanged from one year ago and cont to show diastolic dysfunction. Steroids were started empirically but have not made much difference either. She does not have any cp nor does she feel SOB. She does have a cough on inspiration. She is on AC for a hx of P.E. Today, Pulm will see her. I will also get a CTA. # pna, suspect aspiration - better on CXR - cont unasyn for now. ? need for ongoing # sepsis (leuk, fever) d/t pyelo - resolved # pyelonephritis - resolved # kleb pna bacteremia - as per pyelo # possible R renal mass - needs f/u CT when pyelo resolved; recommend 1 month # acute on chronic (nocturnal O2) resp failure d/t pulm edema, possibly pna - slow improvement today # diastolic dysfunction (seen on echo 2018) # CAD s/p PCI - eliquis/lipitor # htn - overall ok # acute encephalopathy with somnolence - resolved, d/t narcotics, zanaflex # chronic pain on continuous narcotics - meds restarted # PE - eliquis # urinary retention - possible opioids; better # hypotension - resolved with IVF Dispo: cont inpatient Subjective: no cp or sob. still on 5L o2. Objective: Vital Signs Temp Pulse Resp BP Pulse Ox 36.6 C 77 17 148/102 H 93 12/11/17 10:02 12/11/17 10:02 12/11/17 10:02 12/11/17 10:02 12/11/17 10:02 Laboratory Results 12/11/17 04:18 12/11/17 04:18 12/10/17 12/11/17 12/12/17 05:59 05:59 05:59 Intake Total 400 300 Output Total 500 3800 Balance -100 -3500 - Physical Exam Constitutional: no apparent distress Eyes: PERRL, EOMI Ears, Nose, Mouth, Throat: moist mucous membranes, hearing normal Cardiovascular: regular rate and rhythym, No edema Respiratory: reduced air movement, expiratory wheeze Gastrointestinal: normoactive bowel sounds, soft, non-tender abdomen Skin: warm Musculoskeletal: generalized weakness Neurologic: AAOx3 Psychiatric: interacting appropriately, not anxious, not encephalopathic Lymph, Heme, Immunologic: No petechiae ICD10 Worksheet Patient Problems: Problems Problem Status Onset Pyelonephritis Acute Bilateral swelling of feet Acute Chest pain Acute Elevated troponin Acute
[2017-12-11] MEDS: FUROSEMIDE 20 MG TAB PO SCH (14:24)
--- NOTE | 2017-12-11 14:50 | GCON ---
[f rep st] CONSULTATION CHEST CONSULTATION REASON FOR CONSULTATION: Respiratory failure and hypoxemia. HISTORY: The patient is a very pleasant 67-year-old white female with a past medical history includi ng coronary artery disease, chronic hypoxemic respiratory failure on nocturnal oxygen, hypothyroidism , renal cell carcinoma, breast cancer, hyperlipidemia, hypertension, and a history of pulmonary embol ism x2, for which she is on Eliquis. She was admitted on 11/29/2017, with pyelonephritis and bactere patel. She had some problems with nausea/vomiting and was diagnosed with an aspiration pneumonia. Sin ce that time, she has had a slow recovery and remains hypoxemic. In discussion with the patient, she admits to a cough that is distinctly nonproductive. She does not currently have any fevers. She grayson s some mild chest tightness but no dominik chest pain. She is still having some flank pain as well. S he has no nausea, no vomiting, no diarrhea. She does become breathless with exertion. REVIEW OF SYSTEMS: Ten-point review of system was performed and is negative except for what is liste d in HPI. PAST MEDICAL HISTORY: Again, significant for coronary artery disease, chronic hypoxemic respiratory failure on nocturnal oxygen, hypothyroidism, renal cell carcinoma, breast cancer, hyperlipidemia, hyp ertension, and a pulmonary embolism x2. PAST SURGICAL HISTORY: She has had cervical lumbar spine surgeries, knee surgeries, breast implants, partial nephrectomy in October of 2016, and a thyroidectomy. MEDICATIONS ON ADMISSION: Include Prozac, Valium, bupropion, atorvastatin, Eliquis, Bystolic, OxyCon tin, Senokot, thyroid, tizanidine, and zolpidem. ALLERGIES: No known to medications. FAMILY HISTORY: Noncontributory. SOCIAL HISTORY: No history of tobacco use. Infrequent alcohol use. 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 She resides currently in [place] and is here visiting her daughter. PHYSICAL EXAM: VITAL SIGNS: Blood pressure 148/102, pulse 77, respirations 17, temperature 36.6, ox ygen saturation 93% on 6 L. GENERAL: She is a well-developed, well-nourished 67-year-old white fema le who is resting comfortably on supplemental oxygen. HEENT: Eyes are PERRLA, EOMI. Throat shows n o erythema or tonsillar hypertrophy. NECK: Supple. There is no cervical adenopathy. HEART: Regul ar rate and rhythm, without murmurs, rubs, or gallops. LUNGS: Diminished breath sounds, a few bibas ilar crackles, but no wheeze. ABDOMEN: Soft, nontender. Bowel sounds are present in all 4 quadrant s. EXTREMITIES: No clubbing, cyanosis, or edema. LABORATORIES: White count is 10, hemoglobin 11, hematocrit 36, platelet count is 328. Sodium 144, p otassium 4.1, chloride 100, CO2 is 32, BUN 18, creatinine 0.9, glucose is 98. IMAGING: Echocardiogram, dated 12/09/2017, shows normal ejection fraction. CT angiogram of the ches t, dated 12/11/2017, shows no evidence of pulmonary embolism. She has bilateral subsegmental atelect asis, some cardiomegaly. IMPRESSION: 1. Acute respiratory failure, likely secondary to aspiration, as well as altitude. 2. Aspiration pneumonia. 3. Pyelonephritis. 4. Sepsis, resolved. 5. Diastolic dysfunction. 6. Hypertension. RECOMMENDATIONS: 1. Would arrange for home oxygen. 2. Continue current oral antibiotics for another 5 days. 3. Would discharge patient home. 4. She will follow up in my office in approximately 3 weeks, at which time will assess her oxygen ne eds. Thank you very much for allowing me to participate in care of this interesting patient. If there is any further information you require, please do not hesitate to contact me. /[id number]/MODL
--- NOTE | 2017-12-11 16:36 | ASMTCMCOM ---
CM Note CM Note Notes: Pt had pulm consult today. Pt likely has aspiration PNA but can DC with home O2 and oral ABX and f/u with Dr Petit in 3 weeks. Pt will have no HC needs. Date Signed: 12/11/2017 04:35 PM Electronically Signed By:Karolina Webster LCSW
[2017-12-11] MEDS: ZOLPIDEM TARTRATE 5 MG TAB PO PRN (20:46)
[2017-12-11] MEDS: ATORVASTATIN CALCIUM 20 MG TAB PO SCH (20:46)
[2017-12-12] MEDS: LORazepam 2 MG/ML INJ IVP PRN (01:45)
[2017-12-12] MEDS: ALBUTEROL 3 ML DEYVIAL IH SCH ×4 (05:02→22:43)
[2017-12-12] MEDS: AMPICILLIN/SULBACTAM 3 GM in NS 100 ML IV SCH ×2 (05:35→12:44)
--- NOTE | 2017-12-12 08:29 | PDHOMEO2F ---
Home Oxygen Face to Face Home Orders: I certify that a physician or a nurse practitioner or physician's metal forger's assistant has had a [id number] encounter with this patient on the date of this order due to the diagnosis listed, which relates to the primary reason the patient requires home oxygen. Alternative treatments have been tried, or considered, and deemed ineffective. It is anticipated that supplemental oxygen will result in improvement with treatment. Home oxygen qualifying diagnosis: hypoxemia SpO2 on room air (%): 83 Frequency of home oxygen needed: continuous Home oxygen liters per minute: 5 Home oxygen delivery device: nasal cannula Concentrator: Yes E-tanks for mobility and back up: Yes If ordering portable O2, is the patient mobile in the home?: Yes I certify that, based on these findings, the home oxygen is medically necessary for this patient for the following length of time. Length of time home oxygen needed: 99 years
[2017-12-12] MEDS: buPROPion SR 100 MG TAB PO SCH ×2 (09:05→21:22)
[2017-12-12] MEDS: FLUoxetine 20 MG CAP PO SCH (09:05)
[2017-12-12] MEDS: FAMOTIDINE 20 MG TAB PO SCH (09:05)
[2017-12-12] MEDS: THYROID 60 MG TAB PO SCH (09:05)
[2017-12-12] MEDS: SENNOSIDES 1 TAB PO SCH (09:05)
[2017-12-12] MEDS: FUROSEMIDE 20 MG TAB PO SCH (09:06)
[2017-12-12] MEDS: APIXABAN 5 MG TAB PO SCH ×2 (09:06→21:21)
[2017-12-12] MEDS: predniSONE 20 MG TAB PO SCH (09:06)
[2017-12-12] MEDS: oxyCODONE IR 5 MG TAB PO PRN ×3 (09:06→21:23)
--- NOTE | 2017-12-12 11:28 | PDDCSUM ---
Discharge Summary Discharge Summary: 67F admitted with pyelo and bacteremia. Hypotension required IVF which precipitated pulmonary edema. Also developed new pna on 12/06. She was treated with Abx with resolution of her pyelonephritis. She still need 3 more days of Augmentin for her aspiration pneumonia. Resp malagon she is still needing 3 L of O2. Her baseline is nocturnal O2 only. Etiology is likely altitude and slow recovery from the pneumonia. She will complete her abx regimen as well as a steroid taper and inhaler as needed. She will f/u with Dr. Jon Petit is 3 weeks. She has been set up for home o2. She has also been started on Diuretics daily (Lasix 20mg daily). She has failed been off diuretics due to worsening pulm vasc congestion. She has a hx of P.E. x 2 and she cont on AC for this. She will also f/u with a PCP in one week for repeat labs and hospital follow up. She needs a f/u CT of her abd in one month per below DDX: # pna, suspect aspiration - better on CXR # sepsis (leuk, fever) d/t pyelo - resolved # pyelonephritis - resolved # kleb pna bacteremia - as per pyelo # possible R renal mass - needs f/u CT when pyelo resolved; recommend 1 month # acute on chronic (nocturnal O2) resp failure d/t pulm edema, possibly pna - slow improvement # diastolic dysfunction (seen on echo 2018) # CAD s/p PCI - eliquis/lipitor # htn - overall ok # acute encephalopathy with somnolence - resolved, d/t narcotics, zanaflex # chronic pain on continuous narcotics - meds restarted # PE - eliquis # urinary retention - possible opioids; better Exam: NAD AAOX3 RRR DECREASED LUNG SOUNDS RRR S/NT/ND NO LE EDEMA MEDS: SEE MED REC F/U: PER ABOVE TOTAL TIME SPENT ON D/C IS 40 MINS
--- NOTE | 2017-12-12 12:48 | ASMTCMCOM ---
CM Note CM Note Notes: Chart reviewed. Patient has been medically cleared for discharge to home. No current needs identified CM available should needs arise. Plan: Home no needs but with oxygen Date Signed: 12/12/2017 12:47 PM Electronically Signed By:Rose Emanuel RN
[2017-12-12] MEDS: DIAZEPAM 5 MG TAB PO PRN ×2 (12:49→21:28)
--- NOTE | 2017-12-12 12:49 | ASMTCMCOM ---
CM Note CM Note Notes: Chart reviewed. Met with patient at length to assess her perception of home safety as a result of nursing note yesterday that eluded to unstable situation of home environment. She tells me that the home is well set up for her. She reports she feels safe there. She also spends her time between [place], [place] and [place]. She was here caring for her 4 and 6 year old grandchildren so her daughter and her could have a birthday trip to [facility]. The day they were to return the patient went to [employer] her grandchildren when she became ill at the school and vomitied Staff at the school was concerned and offered to call the patient an ambulance which she declined as she had another grandchild to [employer]. She reports she picked up the other child took them home then got a sitter then got an uber to the ER. Per the patient this has resulted in a CPS investigating the family circumstances. She is currently on oxygen at [facility] and reports she uses oxygen in [place] but did not travel with it. Upon inquiring as to walking with therapy, she reports she has not been up walking in win. Question disposition at this time. Will require an airline excuse for travel. Likely to need oxygen to go home/travel with. CM to follow. Plan: home to daughters with home oxygen Date Signed: 12/06/2017 01:24 PM Electronically Signed By:Rose Emanuel RN
--- NOTE | 2017-12-12 12:50 | ASMTLACE ---
ESTELA Length of stay for Answers: 7-13 days current admission Comorbidities - select Answers: Coronary Artery Disease all that apply Opioid dependence / Chronic pain Other Notes: HTN # of Emergency department Answers: 1-2 visits in the last 6 months Social determinants Answers: History of substance abuse (ETOH, street drugs, prescription drugs, etc.) Score: 16 Date Signed: 12/12/2017 12:49 PM Electronically Signed By:Rose Emanuel RN
--- NOTE | 2017-12-12 16:21 | ASMTCMCOM ---
CM Note CM Note Notes: Patient confided in RN that she have difficulty reaching family and that when she did her daughter reported to her that her was intoxicated and unable to come and get her as planned, Informed Dr. Dhillon who will change her to oral antb while here, cancel discharge and plan for early discharge tomorrow. CM available if other needs arise. Date Signed: 12/12/2017 04:20 PM Electronically Signed By:Rose Emanuel RN
[2017-12-12] MEDS: AMOXICILLIN/CLAVULANATE POT 875/125 MG TAB PO SCH (21:22)
[2017-12-12] MEDS: ATORVASTATIN CALCIUM 20 MG TAB PO SCH (21:23)
[2017-12-12] MEDS: ZOLPIDEM TARTRATE 5 MG TAB PO PRN (21:24)
[2017-12-13] MEDS: ALBUTEROL 3 ML DEYVIAL IH SCH (06:06)
[2017-12-13 08:57] VITALS: BP 142/97
--- NOTE | 2017-12-13 10:17 | ASMTCMCOM ---
CM Note CM Note Notes: Discussed with MD and patient now dc'd to home. I met with patient to address potential transportation needs and she declines needs at this time. NO other needs at discharge. Has oxygen in her room. CM available should other needs arise. Plan: Home to daughters. Date Signed: 12/13/2017 10:16 AM Electronically Signed By:Rose Emanuel RN
[2017-12-13] MEDS: FLUoxetine 20 MG CAP PO SCH (10:20)
[2017-12-13] MEDS: APIXABAN 5 MG TAB PO SCH (10:21)
[2017-12-13] MEDS: AMOXICILLIN/CLAVULANATE POT 875/125 MG TAB PO SCH (10:21)
[2017-12-13] MEDS: FAMOTIDINE 20 MG TAB PO SCH (10:22)
[2017-12-13] MEDS: buPROPion SR 100 MG TAB PO SCH (10:22)
[2017-12-13] MEDS: predniSONE 20 MG TAB PO SCH (10:22)
[2017-12-13] MEDS: SENNOSIDES 1 TAB PO SCH (10:22)
[2017-12-13] MEDS: FUROSEMIDE 20 MG TAB PO SCH (10:22)
[2017-12-13] MEDS: DIAZEPAM 5 MG TAB PO PRN (10:28)
[2017-12-13] MEDS: THYROID 60 MG TAB PO SCH (10:28)
--- NOTE | 2017-12-13 14:28 | PDDCSUM ---
Discharge Summary Discharge Summary: Please see discharge summary from 12/12/17. Patient was unable to discharge overnight due to family dynamics. Discharged home today, no changes made to dc plan or dc meds.
== END 2017-12-13 11:12 | disposition home or self-care (01) | DRG 871 ==
LOC: EEVIPCON 18:17 → OBSVTOIN 18:17 → F1N 19:45 → F2N 11-30 15:28 → F1N 12-01 16:45
PROVIDERS: ADMIT Internal Medicine; ATTEND Internal Medicine
PROC: 02HV33Z Insertion of Infusion Device into Superior Vena Cava, Percutaneous Approach (ICD-10-PCS; principal; 2017-12-03)
DX: A41.89 Other specified sepsis (principal); N12 Tubulo-interstitial nephritis, not specified as acute or chronic; J69.0 Pneumonitis due to inhalation of food and vomit; G93.49 Other encephalopathy; B96.1 Klebsiella pneumoniae [K. pneumoniae] as the cause of diseases classified elsewhere; R33.0 Drug induced retention of urine; T40.605A Adverse effect of unspecified narcotics, initial encounter; T42.8X5A Adverse effect of antiparkinsonism drugs and other central muscle-tone depressants, initial encounter; R65.20 Severe sepsis without septic shock; N28.89 Other specified disorders of kidney and ureter; I25.10 Atherosclerotic heart disease of native coronary artery without angina pectoris; I10 Essential (primary) hypertension; G89.29 Other chronic pain; E03.9 Hypothyroidism, unspecified; E78.5 Hyperlipidemia, unspecified; Z85.3 Personal history of malignant neoplasm of breast; Z95.5 Presence of coronary angioplasty implant and graft; Z23 Encounter for immunization; Z86.711 Personal history of pulmonary embolism
CPT/HCPCS: 96374; 97116-GP; 97161-GP; 97165-GO; 97530-GP; 97535-GO; C1751; G0009; G0378; G8978-GP-CK; G8979-GP-CI; G8980-GP-CI; J0295; J0696; J1170; J1885; J1940; J2060; J2405; J2550; J2997; J7512; J7613; Q9967

== ENCOUNTER 2017-12-23 11:30 | Emergency (ER) | payer OTHER ==
--- NOTE | 2017-12-23 13:58 | EDPHY ---
H & P Time Seen by Provider: 12/23/17 13:47 HPI/ROS: Chief complaint. Right hand swelling HPI. 67-year-old female awoke this morning with right hand swelling and it is involving her forearm as well. No symptoms at the elbow were above. She denies injury though she does have some bruising she noted today. No chest discomfort or trouble breathing. 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 She did take it this morning however. She was recently in the hospital for pneumonia and sepsis. She has no weakness to her hand but just swelling. Patient is right handed. She has had mastectomy for breast cancer and bilateral axillary lymph node removed ROS Constitutional. no fever/chills, no weakness Eyes. no problems with vision ENT. no sore throat, no nasal drainage Cardiovascular. no chest pain Respiratory. no shortness of breath, no cough Abdominal. no abdominal pain, no nausea/vomiting, no diarrhea . no problems urinating MS. Right hand swelling Skin. no rash Lymph. no swollen glands Neuro. no headache, no dizziness, no difficulty walking or with speech Past Medical/Surgical History: Past medical history significant kidney cancer, coronary artery disease with stents, breast cancer with mastectomy, thyroidectomy, cochlear implant, spine surgery, sepsis, opioid dependence Social History: , nonsmoker, no alcohol Smoking Status: Never smoked Physical Exam: General Appearance: Alert well-developed female mild distress vital signs are stable Eyes: Pupils equal and round no pallor or injection. ENT, Mouth: Mucous membranes are moist. Respiratory: There are no retractions, lungs are clear to auscultation. Cardiovascular: Regular rate and rhythm. Gastrointestinal: Abdomen is soft and nontender, no masses, bowel sounds normal. Neurological: Awake and alert, sensory and motor exams grossly normal. Skin: Warm and dry, no rashes. Musculoskeletal: Neck is supple nontender. Extremities right hand is swollen. There is ecchymosis on the medial aspect of the thenar eminence. Swelling appears to go to mid forearm. She has good range of motion. Radial pulses are full and equal Psychiatric: Patient is oriented X 3, there is no agitation. Constitutional: Initial Vital Signs Temperature (C) 36.8 C 12/23/17 11:33 Heart Rate 75 12/23/17 11:33 Respiratory Rate 18 12/23/17 11:33 Blood Pressure 163/111 H 12/23/17 11:33 O2 Sat (%) 94 12/23/17 11:33 O2 Delivery Mode Room Air Allergies/Adverse Reactions: peanut Allergy (Verified 12/23/17 11:32) Home Medications: Medication Instructions Recorded Atorvastatin Calcium [Lipitor 20 20 mg PO HS 11/29/17 mg (*)] Buprenorphine 1 patch TP TU@0800 11/29/17 Bupropion HCl [Bupropion HCl Sr] 100 mg PO BID 11/29/17 Diazepam [Valium 10 MG (*)] 10 mg PO TID PRN 11/29/17 FLUoxetine [Prozac 20 MG (*)] 40 mg PO DAILY 11/29/17 Sennosides [Senokot] 2 each PO DAILY 11/29/17 Thyroid,Pork [Thyroid] 120 mg PO DAILY 11/29/17 Tizanidine HCl 4 mg PO QID 11/29/17 Zolpidem Tartrate 5 - 10 mg PO HS PRN 11/29/17 Albuterol Sulfate [Proair 90 mcg IH TID PRN #1 [email or web address] 12/12/17 Respiclick] Amoxicillin/Clavulanate Pot 875 mg PO BID #6 tab 12/12/17 [Augmentin 875 MG TAB (*)] Apixaban [Eliquis] 5 mg PO BID #60 tab 12/12/17 Diazepam [Valium 5 MG (*)] 10 mg PO TID PRN #20 tab 12/12/17 Furosemide [Lasix 20 MG (*)] 20 mg PO DAILY #30 tab 12/12/17 oxyCODONE HCL [Oxycodone HCl] 20 mg PO TID PRN #20 tablet 12/12/17 predniSONE 20 mg PO DAILY #5 tablet 12/12/17 Medical Decision Making - Diagnostics Imaging Results: Imaging Impressions Extremity Venous Study 12/23/17 13:58 Impression: 1. Short segment of superficial thrombophlebitis involving the basilic vein in the forearm. 2. No deep venous thrombosis. Findings discussed with Emergency Department physician, Dr. Arturo Hurtado on December 23, 2017 at 1450 hours. Forearm X-Ray 12/23/17 13:58 Impression: No acute osseous findings. Hand X-Ray 12/23/17 13:59 Impression: 1. Soft tissue swelling with no acute osseous findings. 2. Additional findings as above. X-ray right hand and forearm show no evidence of fracture dislocation Ultrasound of the right upper extremity reviewed by me and discussed with Dr. Herrera shows a superficial thrombophlebitis. Right forearm in the basilic vein. No evidence for DVT. ED Course/Re-evaluation: Re-evaluation 3:00 p.m. Patient and I discussed imaging and lab results. We discussed treatment plan including criteria for return importance of follow-up and further evaluation. She expresses understanding and agreement. Patient does have Eliquis which she is encouraged to continue to take I consulted discussed case with Dr. Harris, hematology who recommends continuing the Eliquis and adding 325 mg of aspirin daily. Differential Diagnosis: I considered fracture, dislocation, DVT, superficial thrombophlebitis. Departure - Departure Disposition: Home, Routine, Self-Care Clinical Impression: Superficial thrombophlebitis of arm Qualifiers: Laterality: right Qualified Code(s): I80.8 - Phlebitis and thrombophlebitis of other sites Condition: Good Instructions: Superficial Thrombophlebitis (ED) Additional Instructions: Continue your Eliquis. Add 325 mg aspirin daily for The next week. Keep arm elevated as much as possible. Return for worsening pain and swelling. Recheck either tomorrow by your regular physician or on Wednesday. Return sooner over the weekend for worsening symptoms. Referrals: JENIFFER SANDOVAL [Primary Care Provider] - 2-3 days, call for appt.
[2017-12-23 15:54] VITALS: BP 157/117
== END 2017-12-23 15:50 | disposition home or self-care (01) ==
DX: I80.8 Phlebitis and thrombophlebitis of other sites (principal); I25.10 Atherosclerotic heart disease of native coronary artery without angina pectoris; Z85.3 Personal history of malignant neoplasm of breast; Z85.528 Personal history of other malignant neoplasm of kidney; Z95.5 Presence of coronary angioplasty implant and graft